=== PATIENT | male | born 1935 | race Caucasian/White ===

== ENCOUNTER 2017-06-14 08:00 | Day surgery (SDC) | payer MEDICARE ==
[2017-06-08 15:49] VITALS: BMI 25.4
[~2017-06-14 08:00] MED LIST: DEXAMETHASONE SOD PHOSPHATE 10 MG/ML 1 ML VIAL IV ONE; HYDROmorphone 1 MG/ML 1 ML SYRINGE IVP PRN; LACTATED RINGERS 1,000 ML IV SCH; LIDOCAINE 1% 20 ML VIAL (10MG/ML) FOR IV START INTRADERMA PRN; MIDAZOLAM 2 MG/2 ML VIAL IV PRN; MOXIFLOXACIN HCL 0.5% DROPS 3 ML BTL OP ONE; ONDANSETRON 4 MG/2 ML VIAL IVP ONE; SCOPOLAMINE 1.5MG/72HR PATCH TRANSDERM ONE; TETRACAINE 0.5% OPHTH (PF) DROPS 4 ML BTL OP ONE; TIMOLOL 0.5% OPHTH SOLN (PF) 0.2 ML DROPERETTE OP ONE
[2017-06-14] MEDS: PHENYLEPHRINE 2.5% OPHTH DRP 2ML OP NR ×3 (08:42→08:54)
[2017-06-14] MEDS: CYCLOPENTOLATE 1% OPHTH SOLN 2 ML BTL OP ONE ×3 (08:45→08:57)
[2017-06-14 08:59] VITALS: RESP 16; TEMP 97.6
[2017-06-14 09:19] LABS: INR 1.9 (<1.2); Prothrombin Time 18.3 sec (9.0-12.0)
[2017-06-14] MEDS ORDERED: EPINEPHrine (PF) 0.3 ML in BALANCED SALT IRRIG SOLN COMB2 500 ML IRRIGATION ONE (10:02)
[2017-06-14] MEDS ORDERED: BALANCED SALT IRRIG SOLN COMB2 15 ML IRRIG.SOLN INTRAOCULA ONE (10:05)
[2017-06-14] MEDS ORDERED: TIMOLOL 0.5% OPHTH SOLN (PF) 0.2 ML DROPERETTE RIGHT EYE ONE (10:05)
[2017-06-14] MEDS ORDERED: LIDOCAINE 1% (PF) 10MG/ML VIAL SQ ONE (10:07)
--- NOTE | 2017-06-14 10:21 | P.OP ---
Date of Procedure: 06/14/17 Preoperative Diagnosis: NS & CS & PSC Postoperative Diagnosis: same Procedure(s) Performed: PIOL, OD Implants: PCB00 20.00 Anesthesia: MAC Surgeon: Lino Vogel Estimated Blood Loss (ml): 0 Pathology: none sent Condition: stable Disposition: same day Indications for Procedure: blurry vision Operative Findings: no complications Description of Procedure:
[2017-06-14 10:39] VITALS: BP 119/72; PULSE 68
--- NOTE | 2017-06-15 11:05 | OP ---
DATE OF SURGERY: 06/14/2017 PROCEDURE: Phacoemulsification of cataract and intraocular lens implant of the right eye. PREOPERATIVE DIAGNOSIS: Nuclear sclerosis, cortical sclerosis, posterior subcapsular cataract. POSTOPERATIVE DIAGNOSIS: Nuclear sclerosis, cortical sclerosis, posterior subcapsular cataract. VISCOELASTIC: Amvisc. PHACOEMULSIFICATION TIME: 11.56 seconds at 8% power. IMPLANT: [id number] 20.0 diopters. NARRATIVE: After obtaining the appropriate consent, the patient was brought to the Operating Room where the patient was placed under cardiac monitoring and prepped and draped in the usual sterile manner. At the 11 oclock - for OD, 5 oclock - for OS position a 15 degree super sharp blade was used to create a paracentesis followed by instillation of 1% Xylocaine MPF 50:50 mix with BSS into the anterior chamber. This was followed by to stabilize the anterior chamber. At the 9 oclock - for OD, 3 oclock - for OS position a self- sealing corneal flap incision was created using 2.8 mm hair keratome. A cystatome was used to initiate a continuous tear capsulorrhexis which was completed with the Utrata forceps. A Binkhorst cannula was used to hydrodissect the lens nucleus followed by hydrodelineation. Phacoemulsification of the lens was performed utilizing phacochop in seconds at % power. The remaining cortical material was removed using the irrigation aspiration mode followed by additional 1% Xylocaine MPF into the anterior chamber followed by viscoelastic to stabilize the capsular bag. An posterior chamber lens was placed into the capsular bag without difficulty. The remaining viscoelastic material was removed from the anterior chamber with the irrigation/aspiration. Balanced salt solution was used to normalize the intraocular pressure. The incision was checked for watertight integrity. The patient then received two drops of 0.5% timolol followed by two drops Vigamox, was lightly patched and shielded in the usual manner. There were no complications from the procedure. The patient tolerated the procedure well and was returned to recovery in good condition. HEBERT
== END 2017-06-14 11:25 | disposition home or self-care (01) ==
LOC: OR 08:00
PROVIDERS: ATTEND Ophthalmology
DX: H25.11 Age-related nuclear cataract, right eye (principal); H25.011 Cortical age-related cataract, right eye; H25.041 Posterior subcapsular polar age-related cataract, right eye; H34.8322 Tributary (branch) retinal vein occlusion, left eye, stable; H52.4 Presbyopia; H52.223 Regular astigmatism, bilateral; H02.122 Mechanical ectropion of right lower eyelid; J43.9 Emphysema, unspecified; I51.9 Heart disease, unspecified; I48.91 Unspecified atrial fibrillation; J44.9 Chronic obstructive pulmonary disease, unspecified; Z86.73 Personal history of transient ischemic attack (TIA), and cerebral infarction without residual deficits; Z85.46 Personal history of malignant neoplasm of prostate; I25.2 Old myocardial infarction; Z79.899 Other long term (current) drug therapy; Z79.52 Long term (current) use of systemic steroids; Z79.51 Long term (current) use of inhaled steroids; Z79.82 Long term (current) use of aspirin; Z79.01 Long term (current) use of anticoagulants; Z88.1 Allergy status to other antibiotic agents; Z88.0 Allergy status to penicillin; Z88.2 Allergy status to sulfonamides; Z87.891 Personal history of nicotine dependence
CPT/HCPCS: 85610; 66984; C1780; J0171; J2001

== ENCOUNTER 2018-03-29 10:09 | Inpatient (IN) | payer MEDICARE ==
[2018-03-29] MEDS ORDERED: HEPARIN SODIUM,PORCINE 5,000 UNIT/ML 1 ML VIAL IV PRN (16:29)
[2018-03-29] MEDS ORDERED: HEPARIN SODIUM,PORCINE/D5W PMX 25,000 UNIT in DEXTROSE/WATER 1 500ML.BAG IV SCH (16:30)
[2018-03-29 17:27] LABS: Basophils % (A) 0 %; Eosinophils % (A) 0 %; HCT 38.8 % (39.0-53.0); Lymphocytes # (A) 0.4 k/uL (1.0-4.8); Lymphocytes % (A) 6 %; MCH 32.2 pg (25.0-35.0); MCHC 33.5 g/dL (31.0-37.0); Mean Platelet Volume 7.3; Monocytes # (A) 0.6 k/uL (0-1.0); Monocytes % (A) 8 %; Neutrophils # (A) 5.9 k/uL (1.3-7.7); Neutrophils % (A) 84 %; Platelet Count 181 k/uL (150-450); RBC 4.04 m/uL (4.30-5.90); RDW 13.2 % (11.5-15.5)
[2018-03-29 17:38] LABS: INR 1.4 (<1.2)
[2018-03-29 17:47] VITALS: RESP 18
[2018-03-29] MEDS ORDERED: ALPRAZolam 0.25 MG TAB PO PRN (17:51)
--- NOTE | 2018-03-29 20:22 | HP ---
HISTORY AND PHYSICAL Mr. Odell is an 82-year-old gentleman who initially presented to [facility] and was admitted on March 27 at that time with a chief complaint of chest pain. The patient was awoken by pain and it increased with any activity the morning of admission and he came to the emergency room. He was found initially to have a elevated troponin at 0.086. EKG showed atrial fibrillation and low voltage in the anterior leads but no definite acute ischemic changes. The patient remained fairly pain- free during his hospitalization. Initial catheterization was deferred because of elevated INR values. His Coumadin was held and plans for further catheterization; per patient request he was transferred here to [facility] so not only catheterization could be done, but if further intervention was needed, it could be done here in the cath facility. PREVIOUS MEDICAL HISTORY: 1. Coronary artery disease and previous myocardial infarction and a previous catheterization, but probably 10 years or more ago. 2. He also has had chronic atrial fibrillation. 3. Underlying history of COPD. 4. Previous remote CVA with good recovery. 5. Hyperlipidemia. 6. There is history of colonic polyp and removal many years ago. 7. The patient has a history of cancer of the prostate. 8. Dilated cardiomyopathy. 9. Osteoarthritis. ALLERGIES: 1. SULFA. 2. PENICILLIN. 3. VIBRAMYCIN. WITH SULFA AND PENICILLIN, HE HAS HAD HIVES IN THE PAST. REVIEW OF SYSTEMS: The patient has had chest pain, as mentioned above. No unusual fever or chills. No urinary or bowel symptomatology. No unusual leg edema or pain. PAST SURGICAL HISTORY: 1. Hemicolectomy for the right-sided tumor lesion many years ago without any evidence of spread or recurrence. 2. He has had previous prostate surgery. 3. He has also had carotid artery surgery. 4. Left hip replacement. 5. Right shoulder rotator cuff repair. 6. Right knee surgery in the past. SOCIAL HISTORY: Patient does not smoke. Very infrequent alcohol usage. He lives locally with his in the area. FAMILY MEDICAL HISTORY: Positive for coronary artery disease with his mother. Father and brother also had emphysema. PHYSICAL EXAMINATION: He is alert and oriented, in no distress. Head and neck exam was unremarkable. LUNGS: Clear to auscultation. HEART: Regular without murmurs. ABDOMEN: Nontender. Extremities revealed no edema. Neurologically, he is alert and oriented. Cranial nerves intact. No focal weakness noted. PRESENT LABORATORY VALUES: White count of 7, hemoglobin 13, and a platelet count of 181. His INR was 1.4. PTT is 27. His EKGs have revealed at [facility] atrial fibrillation with poor R- wave progression anteriorly. His rate is controlled. No definite ischemic changes were noted. The patient also had a chest x-ray at [facility] which did not show any focal consolidation, pleural effusion or pneumothorax. There was some consistency with COPD. OVERALL IMPRESSION: This is a gentleman with xlo-GQ-byfpfcj-elevated myocardial infarction/unstable angina with history of coronary artery disease and other comorbidities as stated above. PLANS: At this point he will continue off his Coumadin. Continue on heparin. His other maintenance medications, which include his Lipitor, will be continued. Metoprolol. He is to be n.p.o. in the morning. Plans are for cardiac catheterization apparently tomorrow by [facility], I believe Dr. Saucedo, as has been discussed with the patient at [facility]. MMODL / IJN: [id number] / HEBERT
[2018-03-29] MEDS: SYMBICORT 160-4.5 MCG INHALER INHALATION SCH (21:51)
[2018-03-29] MEDS: TEMAZEPAM 7.5 MG CAP PO PRN (22:56)
[2018-03-29] MEDS: METOPROLOL TARTRATE 25 MG TAB PO SCH (22:57)
[2018-03-29] MEDS: FAMOTIDINE 20 MG TAB PO SCH (22:57)
[2018-03-29] MEDS: AMITRIPTYLINE HCL 10 MG TAB PO SCH (22:57)
[2018-03-30] MEDS: ASPIRIN 81 MG PO SCH (05:55)
[2018-03-30] MEDS: FERROUS SULFATE 325 MG TAB PO SCH (05:56)
[2018-03-30] MEDS: FUROSEMIDE 20 MG TAB PO SCH (05:56)
[2018-03-30] MEDS: CALCIUM CARBONATE 500 MG CHEWABLE PO SCH (05:56)
[2018-03-30] MEDS: CHOLECALCIFEROL 1,000 UNIT TAB PO SCH (05:56)
[2018-03-30] MEDS: ATORVASTATIN 10 MG TAB PO SCH (05:56)
[2018-03-30] MEDS: predniSONE 5 MG TAB PO SCH (05:57)
[2018-03-30] MEDS: MONTELUKAST 10 MG TAB PO SCH (05:57)
[2018-03-30 06:46] LABS: Basophils % (A) 0 %; Eosinophils # (A) 0.1 k/uL (0-0.7); Eosinophils % (A) 1 %; HCT 40.5 % (39.0-53.0); HGB 13.6 gm/dL (13.0-17.5); Lymphocytes # (A) 0.8 k/uL (1.0-4.8); Lymphocytes % (A) 9 %; MCH 32.2 pg (25.0-35.0); MCHC 33.6 g/dL (31.0-37.0); MCV 95.8 fL (80.0-100.0); Mean Platelet Volume 7.4; Monocytes # (A) 1.1 k/uL (0-1.0); Monocytes % (A) 13 %; Neutrophils # (A) 5.9 k/uL (1.3-7.7); Neutrophils % (A) 73 %; Platelet Count 202 k/uL (150-450); RBC 4.23 m/uL (4.30-5.90); WBC 8.2 k/uL (3.8-10.6)
[2018-03-30 06:51] LABS: INR 1.2 (<1.2); Prothrombin Time 11.7 sec (9.0-12.0)
[2018-03-30 06:58] LABS: Anion Gap 10 mmol/L; Blood Urea Nitrogen 18 mg/dL (9-20); Calcium 9.3 mg/dL (8.4-10.2); Carbon Dioxide 29 mmol/L (22-30); Chloride 102 mmol/L (98-107); Glucose 97 mg/dL (74-99); Potassium 4.1 mmol/L (3.5-5.1); Sodium 141 mmol/L (137-145)
[2018-03-30] MEDS: FAMOTIDINE 20 MG TAB PO SCH ×2 (07:49→20:35)
--- NOTE | 2018-03-30 08:00 | P.PN ---
Progress Note - Text The patient is a 82-year-old gentleman who initially presented earlier this week to [facility]. There patient presented with chest pain and an elevated troponin value. Patient has history of coronary artery disease. Atrial fibrillation. His pain increases with activity. The patient has been transferred here and plans are for heart catheterization this morning. Reasons for the testing and possible further intervention has been discussed with patient and who is present at bedside this morning. The patient states he had some mild pain during the night. Presently is pain-free. Vital signs reveal temperature 96.7 with a pulse of 87 respirations 18. Blood pressure 135/87 and he is 95% saturated on room air. Lung and heart examination is clear. Abdomen is nontender. No unusual edema. No focal neurological changes. He is alert and oriented. Laboratory White count 8.2 with a hemoglobin 13.6 and a platelet count of 202. Electrolytes are normal with a potassium 4.1. BUN is 18 with creatinine 0.9 to him a GFR of 80. INR is 1.2. Impressions and plans The plans are for heart catheterization this morning to delineate the coronary artery anatomy and further recommendations pending those results. Once again discussed with patient and present at bedside.
[2018-03-30] MEDS ORDERED: IV FLUID CONTINUATION 1,000 ML IV ONE (08:30)
[2018-03-30] MEDS ORDERED: MIDAZOLAM 2 MG/2 ML VIAL IV ONE (08:30)
[2018-03-30] MEDS ORDERED: LIDOCAINE 2% INJ 20 MG/ML SQ ONE (08:31)
[2018-03-30] MEDS ORDERED: IOPAMIDOL-370 125ML BTL INJ ONE (08:45)
[2018-03-30] MEDS ORDERED: RX INFO: IV CONTRAST WAS GIVEN 1 EACH MISC MISCELLANE PRN (08:57)
[2018-03-30] MEDS ORDERED: NON-FORMULARY DRUG (Glucosam/Chon-Msm1/C/Mang/Bosw [Glucosamine-Chondroitin Tablet] 1 TAB) PO SCH (09:00)
[2018-03-30] MEDS ORDERED: ENALAPRILAT 1.25 MG/ML 1 ML VIAL IVP ONE (09:09)
[2018-03-30] MEDS: SYMBICORT 160-4.5 MCG INHALER INHALATION SCH ×2 (09:11→19:53)
--- NOTE | 2018-03-30 09:33 | CC ---
CARDIAC CATHETERIZATION REPORT INDICATION: Unstable angina. PROCEDURE NOTE: After obtaining informed consent, left heart catheterization and coronary angiogram are performed via the right femoral artery using standard Ankita catheters. The patient has a very tortuous aorta. I used a longer pigtail catheter to get into the LV and a long exchange length wire was used to exchange the catheters in the ascending aorta. A femoral angiogram was done and decision was made for manual hemostasis as patient has a heavily calcified common femoral artery. Patient received moderate conscious sedation. Total sedation time was 20 minutes. FINDINGS: 1. HEMODYNAMICS: Left ventricular end-diastolic pressure is 18 mm. There is no significant gradient across aortic valve. 2. Left ventriculogram: Left ventriculogram is not performed. 3. ANGIOGRAPHIC DATA: 4. Left main coronary artery: Left main coronary artery appears calcified but is free of stenosis. Divides into left anterior descending coronary artery and circumflex coronary artery. Circumflex coronary artery and its branches are free of significant stenosis. LAD shows mild atherosclerotic plaque in its proximal and mid portions. Right coronary artery is a large dominant vessel and is free of significant disease. CONCLUSIONS: Mild nonobstructive coronary artery disease involving the left anterior descending artery and circumflex coronary artery. PLAN: I reviewed angiographic data with the patient and told him that his chest discomfort is noncardiac in origin and will continue with medical therapy at this time. MMODL / IJN: [id number] /
[2018-03-30] MEDS: APIXABAN 2.5 MG TABLET PO SCH ×2 (11:04→20:35)
[2018-03-30] MEDS: SODIUM CHLORIDE 0.9% 1,000 ML IV SCH ×2 (15:50→20:36)
[2018-03-30] MEDS: METOPROLOL TARTRATE 25 MG TAB PO SCH (20:35)
[2018-03-30] MEDS: AMITRIPTYLINE HCL 10 MG TAB PO SCH (20:35)
[2018-03-30] MEDS: TEMAZEPAM 7.5 MG CAP PO PRN (21:26)
[2018-03-31] MEDS: ASPIRIN 81 MG PO SCH (06:24)
[2018-03-31] MEDS: FAMOTIDINE 20 MG TAB PO SCH (06:30)
[2018-03-31 06:32] LABS: INR 1.2 (<1.2); Prothrombin Time 11.6 sec (9.0-12.0)
[2018-03-31 06:38] LABS: Basophils % (A) 0 %; Eosinophils # (A) 0.1 k/uL (0-0.7); Eosinophils % (A) 1 %; HCT 36.6 % (39.0-53.0); HGB 12.5 gm/dL (13.0-17.5); Lymphocytes # (A) 0.7 k/uL (1.0-4.8); Lymphocytes % (A) 9 %; MCV 94.1 fL (80.0-100.0); Mean Platelet Volume 7.7; Monocytes # (A) 1.3 k/uL (0-1.0); Monocytes % (A) 16 %; Neutrophils # (A) 5.7 k/uL (1.3-7.7); Neutrophils % (A) 70 %; Platelet Count 182 k/uL (150-450); RBC 3.89 m/uL (4.30-5.90); RDW 13.3 % (11.5-15.5); WBC 8.1 k/uL (3.8-10.6)
[2018-03-31] MEDS: SYMBICORT 160-4.5 MCG INHALER INHALATION SCH (07:39)
[2018-03-31 08:06] LABS: Poikilocytosis (M) Present
[2018-03-31] MEDS: FERROUS SULFATE 325 MG TAB PO SCH (08:10)
[2018-03-31] MEDS: CHOLECALCIFEROL 1,000 UNIT TAB PO SCH (08:10)
[2018-03-31] MEDS: APIXABAN 2.5 MG TABLET PO SCH (08:10)
[2018-03-31] MEDS: ATORVASTATIN 10 MG TAB PO SCH (08:10)
[2018-03-31] MEDS: CALCIUM CARBONATE 500 MG CHEWABLE PO SCH (08:10)
[2018-03-31] MEDS: FUROSEMIDE 20 MG TAB PO SCH (08:11)
[2018-03-31] MEDS: SODIUM CHLORIDE 0.9% 1,000 ML IV SCH (08:11)
[2018-03-31] MEDS: predniSONE 5 MG TAB PO SCH (08:11)
[2018-03-31] MEDS: MONTELUKAST 10 MG TAB PO SCH (08:11)
[2018-03-31 10:09] VITALS: PULSE 105
[2018-03-31 12:06] VITALS: BP 128/84; TEMP 97.8
--- NOTE | 2018-03-31 12:38 | P.PN ---
Progress Note - Text The patient is a 82-year-old gentleman who underwent heart catheterization yesterday for recurrent chest pain after initially presenting the [facility]. He did have one elevated troponin and the pain was consistent with an unstable angina-type picture. Patient did have history of coronary artery disease. Also chronic atrial fibrillation. Catheterization performed yesterday by cardiology, Dr. Enzo Saucedo though showed only mild nonobstructive coronary disease involving the left anterior descending and circumflex. Vital signs this morning show a temperature 97.8 a pulse of 105 and respirations 18. Blood pressure 128/84 and is 97% saturated. Lung and heart examination is clear. Heart rate is irregular. No unusual edema. No neurological changes. Impressions and plans Discussed with patient and family at bedside. Discuss pros versus cons of Eloquis versus Coumadin. Discussed with nursing staff and cardiology nurse this morning. Patient apparently has a $40 co-pay for Eloquis but will continue on Eloquis and hold Coumadin at this time. Patient to resume his previous home medications with any changes per cardiology. Follow-up in the office next week. Also follow-up with Dr. Saucedo over the next couple weeks. Call if any questions concerns or problems.
--- NOTE | 2018-03-31 12:54 | P.PN ---
Subjective Progress Note Date: 03/31/18 This is an 82-year-old gentleman who presented to [facility] and was admitted there with symptoms of chest discomfort. He was noted to have a mild elevation in his troponin and for this reason was transferred here to undergo a cardiac catheterization. His EKG also showed atrial fibrillation, for which the patient had been on Coumadin in the past. Patient also has history of remote CVA, hyperlipidemia, dilated cardiomyopathy, and COPD. Cardiac catheterization was performed here by Dr. Saucedo and revealed mild nonobstructive coronary artery disease involving the LAD and circumflex, medical therapy was advised. Patient was seen and examined this morning, denies any chest pain or difficulty in breathing. The patient has now been initiated on Eliquis, we will check to make sure that the patient has coverage for this. He should be able to be discharged home today from our perspective to follow-up with Dr. Puente in the office post discharge. Objective - Vital Signs Vital signs: Vital Signs Temp 97.8 F 03/31/18 12:00 Pulse 105 H 03/31/18 12:00 Resp 18 03/31/18 12:00 BP 128/84 03/31/18 12:00 Pulse Ox 97 03/31/18 12:00 Intake & Output 03/30/18 03/31/18 03/31/18 18:59 06:59 18:59 Intake Total 290 10 360 Output Total 600 Balance 290 -590 360 Weight 66.4 kg Intake: IV 50 Intake, IV Titration 10 Amount Sodium Chloride 0.9% 1, 10 000 ml @ 75 mls/hr IV . [id number] [facility] Rx#:[id number] Oral 240 360 Output: Urine 600 Other: Voiding Method Toilet Toilet # Voids 2 1 - Exam PHYSICAL EXAMINATION: HEENT: Head is atraumatic, normocephalic. Pupils equal, round. Neck is supple. There is no elevated jugular venous pressure. HEART EXAMINATION: Heart S1 and S2 irregularly irregular CHEST EXAMINATION: Lungs are clear to auscultation and precussion. No chest wall tenderness is noted on palpation or with deep breathing. ABDOMEN: Soft, nontender. Bowel sounds are heard. No organomegaly noted. Right groin is soft, there is no evidence of any hematoma. EXTREMITIES: 2+ peripheral pulses with no evidence of peripheral edema and no calf tenderness noted. NEUROLOGIC patient is awake, alert and oriented -3. . - Labs CBC & Chem 7: 03/31/18 05:21 0518 06:15 Labs: Abnormal Lab Results - Last 24 Hours (Table) 03/31/18 03/31/18 Range/Units 05:21 05:21 RBC 3.89 L (4.30-5.90) m/uL Hgb 12.5 L (13.0-17.5) gm/dL Hct 36.6 L (39.0-53.0) % Lymphocytes # 0.7 L (1.0-4.8) k/uL Monocytes # 1.3 H (0-1.0) k/uL INR 1.2 H (<1.2) Assessment and Plan Plan: Assessment and plan #1 chest pain with mild abnormality in troponin, status post cardiac catheterization which revealed mild nonobstructive coronary artery disease. Medical therapy advised. #2 chronic persistent atrial fibrillation, on Eliquis now for anticoagulation #3 hypertension #4 hyperlipidemia #5 prior CVA Plan Patient may be discharged home today from cardiology's perspective, we will check to make sure the patient has coverage for his Eliquis, he will go home on Eliquis 2-1/2 mg one tablet by mouth twice a day. A follow-up appointment will be made with Dr. Saucedo in the office post discharge. DNP note has been reviewed, I agree with a documented findings and plan of care. Patient was seen and examined.
--- NOTE | 2018-04-02 06:27 | DS ---
DISCHARGE SUMMARY Mr. Odell is an 82-year-old gentleman that was initially transferred from [facility] where he presented with chest pain. The patient had pain and elevated troponin. Symptoms were consistent with an unstable angina picture in a history of a gentleman with previous cardiac problems consistent with atherosclerotic heart disease and previously diagnosed chronic atrial fibrillation. The patient wanted his heart catheterization performed at [facility] due to the fact that if further intervention was needed it could be done at the same time and he would not have to be transferred again. The patient was admitted. Consultation with cardiology, Dr. Saucedo and cardiac catheterization revealed the left main coronary artery disease to be calcified but free of stenosis. The LAD had some mild atherosclerotic plaque in the proximal and midportion. Right coronary was free of disease. It was felt that the patient would continue on medical management and not be subjected to stenting or surgery at this time. The patient was started on Eliquis. Subsequently, he was ambulated and remained pain free and at this time plans are to discharge to home with home medications to continue with his Eliquis 2.5 twice a day, and the importance of anticoagulation was discussed with him. He is to stop his Coumadin at this time. Amitriptyline 10 mg at bedtime. Aspirin 81 mg daily. Symbicort 160-4.5 two puffs twice a day. He is on calcium carbonate 600 mg daily. Vitamin D3 2000 units daily. Multaq. The patient was on a half of a 400 mg tablet prior to admission for his atrial fibrillation. Ferrous sulfate 325 daily. Lasix 20 mg daily. Glucosamine daily. Metoprolol 25 mg at bedtime. Singular 10 mg daily. Ranitidine 150 mg twice a day. Simvastatin 20 mg daily. Prednisone 5 mg daily and once again he was told to stop his Coumadin while he is on Eliquis. Follow up with myself and Dr. Saucedo over the next 7-10 days. FINAL DISCHARGE DIAGNOSES: 1. Unstable angina with chest pain, now post catheterization as described above. 2. History of previous myocardial infarction. 3. Chronic atrial fibrillation. 4. Chronic obstructive pulmonary disease. 5. Cerebrovascular accident with good previous recovery. 6. Hyperlipidemia. 7. History of previous colonic polyp that was removed by way of open surgery in the past without any evidence of metastatic disease or recurrence. 8. History of prostate cancer. 9. History of osteoarthritis. PREVIOUS SURGERIES: Include the right hemicolectomy, prostate surgery, previous carotid surgery, left hip replacement, right knee and right shoulder rotator cuff repair in the past. DIET: Will low-cholesterol as tolerated. ACTIVITY: As tolerated. MMODL / IJN: [id number] / MTDD
== END 2018-03-31 14:13 | disposition home or self-care (01) | DRG 287 ==
LOC: 6SEL 15:12
PROVIDERS: ADMIT Internal Medicine; ATTEND Internal Medicine
PROC: B211YZZ Fluoroscopy of Multiple Coronary Arteries using Other Contrast (ICD-10-PCS; 2018-03-30)
PROC: 4A023N7 Measurement of Cardiac Sampling and Pressure, Left Heart, Percutaneous Approach (ICD-10-PCS; principal; 2018-03-30 08:30)
DX: I25.110 Atherosclerotic heart disease of native coronary artery with unstable angina pectoris (principal); I42.0 Dilated cardiomyopathy; I48.2 Chronic atrial fibrillation; J44.9 Chronic obstructive pulmonary disease, unspecified; I25.84 Coronary atherosclerosis due to calcified coronary lesion; I10 Essential (primary) hypertension; E78.5 Hyperlipidemia, unspecified; R79.1 Abnormal coagulation profile; I25.2 Old myocardial infarction; M19.91 Primary osteoarthritis, unspecified site; Z86.010 Personal history of colon polyps; Z85.46 Personal history of malignant neoplasm of prostate; Z86.73 Personal history of transient ischemic attack (TIA), and cerebral infarction without residual deficits; Z79.01 Long term (current) use of anticoagulants; Z79.82 Long term (current) use of aspirin; Z79.51 Long term (current) use of inhaled steroids; Z79.899 Other long term (current) drug therapy; Z88.1 Allergy status to other antibiotic agents; Z88.0 Allergy status to penicillin; Z88.2 Allergy status to sulfonamides; Z96.642 Presence of left artificial hip joint; Z90.49 Acquired absence of other specified parts of digestive tract; Z82.49 Family history of ischemic heart disease and other diseases of the circulatory system; Z82.5 Family history of asthma and other chronic lower respiratory diseases
CPT/HCPCS: 80048; 85025; 85610; 85730; 93458; 94640

== ENCOUNTER → 2019-11-08 | Outpatient (CLI) | payer MEDICARE ==
--- NOTE | 2019-11-08 13:57 | US ---
EXAMINATION TYPE: US abdomen limited DATE OF EXAM: 11/08/2019 COMPARISON: NONE CLINICAL HISTORY: R10.31 RLQ Abd pain. Pt states RLQ pain that radiates to right groin RLQ and right groin scanned in area of pt's pain, normal appearing lymph node visualized= 0.4 cm, p rominent right iliac artery also visualized, no evidence of hernia on valsalva maneuver IMPRESSION: 1. There is a circumscribed area within the right inguinal region suspicious for a node.
== END ==
LOC: RADUSWWP 10:35
PROVIDERS: ATTEND Family Medicine
DX: R10.31 Right lower quadrant pain (principal)
CPT/HCPCS: 76705

== ENCOUNTER → 2019-12-19 | Outpatient (CLI) | payer MEDICARE ==
--- NOTE | 2019-12-19 20:14 | CT ---
EXAMINATION TYPE: CT abdomen pelvis wo con DATE OF EXAM: 12/19/2019 COMPARISON: None HISTORY: LLQ pain CT DLP: 224 mGycm Examination of the solid and hollow viscera is limited given the lack of contrast. FINDINGS: LUNG BASES: No evidence for nodule. No evidence for infiltrate. LIVER/GB: The gallbladder is unremarkable. No space-occupying hepatic lesion. PANCREAS: No pancreatic mass identified. No inflammatory process seen. SPLEEN: No evidence for splenomegaly. No intrasplenic lesions seen. Splenic granuloma. ADRENALS: No adrenal nodules identified. No evidence for thickening. KIDNEYS: 4 cm simple cyst upper pole right kidney. No solid renal lesions identified. No nephrolithia sis. No hydronephrosis. BOWEL: Appendix has a normal appearance. No evidence of bowel obstruction. No inflammatory process. Lymph nodes: No evidence for adenopathy greater than 1 cm. Abdominal aorta: Atheromatous changes seen. No evidence for abdominal aortic aneurysm. Aneurysmal dil atation right common iliac measuring 2 cm with ectasia of the left common iliac artery. 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 Genital organs: Prostatectomy changes. Other: Severe degenerative changes lumbar spine. Compression fracture of uncertain age and/or etiolog y superior endplate of L2 with loss of height of approximately 50%. Minimal retropulsion is noted at 2 mm. [id number] central stenosis noted at this level. IMPRESSION: 1.Compression fracture of uncertain age and/or etiology superior endplate of L2 with loss of height o f approximately 50%. Minimal retropulsion is noted at 2 mm. [id number] central stenosis noted a t this level. 2. Iliac aneurysmal change as noted.
== END | disposition home or self-care (01) ==
LOC: RADCTMAIN 17:15
PROVIDERS: ATTEND Orthopaedic Surgery Orthopaedic Surgery of the Spine
DX: S32.028A Other fracture of second lumbar vertebra, initial encounter for closed fracture (principal); I72.3 Aneurysm of iliac artery; J43.9 Emphysema, unspecified; I51.9 Heart disease, unspecified; F17.200 Nicotine dependence, unspecified, uncomplicated; Z85.46 Personal history of malignant neoplasm of prostate; Z85.038 Personal history of other malignant neoplasm of large intestine
CPT/HCPCS: 74176

== ENCOUNTER → 2020-07-23 | Outpatient (CLI) | payer MEDICARE ==
--- NOTE | 2020-07-23 16:16 | US ---
EXAMINATION TYPE: US venous doppler duplex LE DATE OF EXAM: 07/23/2020 2:58 PM COMPARISON: None CLINICAL HISTORY: 84-year-old male R22.42 Left leg swelling, R22.41 Right leg swelling. On blood thin ners. Patient states bumping leg. Palpable lump on right medial mid calf. SIDE PERFORMED: Bilateral TECHNIQUE: The lower extremity deep venous system is examined utilizing real time linear array sonog liliya with graded compression, doppler sonography and color-flow sonography. FINDINGS: VESSELS IMAGED: External Iliac Vein (EIV) Common Femoral Vein Deep Femoral Vein Greater Saphenous Vein * Femoral Vein Popliteal Vein Small Saphenous Vein * Proximal Calf Veins (* superficial vessels) Right Leg: Negative for DVT. Workers Compensation Examiner notes: Area of lump scanned, anteromedial mid calf - super ficial complex collection- 4.2 x 2.7 x 1.6 cm Left Leg: Negative for DVT IMPRESSION: 1. No evidence for DVT within the bilateral lower extremities imaged from the groin to the upper calv es. 2. Targeted scanning along the anteromedial right mid leg shows a 4.2 cm complex collection; hematoma , seroma, abscess are some differential considerations. Mass considered unlikely. Follow-up clinicall y to ensure gradual involution. If persistence or growth, the area can be rescanned.
== END | disposition home or self-care (01) ==
LOC: RADUSWWP 14:32
PROVIDERS: ATTEND Nurse Practitioner Family
DX: I87.2 Venous insufficiency (chronic) (peripheral) (principal)
CPT/HCPCS: 93970

== ENCOUNTER → 2020-08-18 | Outpatient (CLI) | payer MEDICARE | END | disposition home or self-care (01) | LOC: CPPFTMAIN 09:03 | PROVIDERS: ATTEND Internal Medicine Critical Care Medicine | DX: J44.9 Chronic obstructive pulmonary disease, unspecified (principal); R94.2 Abnormal results of pulmonary function studies | CPT/HCPCS: 94060; 94726; 94729 ==

== ENCOUNTER → 2020-12-04 | Outpatient (CLI) | payer MEDICARE ==
--- NOTE | 2020-12-04 12:04 | US ---
EXAMINATION TYPE: US venous doppler duplex LE LT DATE OF EXAM: 12/04/2020 11:57 AM COMPARISON: US bilateral 07/23/2020 CLINICAL HISTORY: R22.42 swelling, M79.662 pain in limb. Bumped leg, developed palpable lump. Patient is currently taking blood thinners SIDE PERFORMED: Left TECHNIQUE: The lower extremity deep venous system is examined utilizing real time linear array sonog liliya with graded compression, doppler sonography and color-flow sonography. VESSELS IMAGED: Common Femoral Vein Deep Femoral Vein Greater Saphenous Vein * Femoral Vein Popliteal Vein Small Saphenous Vein * Proximal Calf Veins (* superficial vessels) Left Leg: Negative for DVT At the patient's palpable lump, left calf, there is a complex fluid collection measuring 3.6 x 0.9 x 2.8 cm Grayscale, color doppler, spectral doppler imaging performed of the deep veins of the left lower extr emity. There is normal flow, compressibility, vascular waveforms. IMPRESSION: No ultrasound evidence for acute DVT in the left lower extremity. Towards the end of cassie dy there is a small to moderate-sized subcutaneous complex fluid collection likely reflecting hematom a given patient's history in the left calf region.
== END | disposition home or self-care (01) ==
LOC: RADUSWWP 11:35
PROVIDERS: ATTEND Nurse Practitioner Family
DX: R93.6 Abnormal findings on diagnostic imaging of limbs (principal); R22.42 Localized swelling, mass and lump, left lower limb

== ENCOUNTER → 2021-09-24 | Outpatient (CLI) | payer MEDICARE ==
--- NOTE | 2021-09-27 06:31 | PE ---
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 TECHNIQUE: Following the intravenous administration of 8.95 mCi of F-18 FDG, whole body images are p erformed from the skull base to the midthigh. Images are reviewed on the computer in the coronal, ax ial, and sagittal planes. Reconstructed rotating images are created on independent workstation and r eviewed on the computer. A localization and attenuation correction CT is performed in conjunction w ith the PET scan. Blood glucose level equaled 111. SCAN: Initial Scan FINDINGS: SKULL BASE AND NECK: Symmetric uptake at level of vocal cords presumed physiologic. No suspicious ab normal hypermetabolic uptake. CHEST, MEDIASTINUM, AND HILAR REGION: No suspicious hypermetabolic uptake. ABDOMEN AND PELVIS: Streak artifact from extensive left hip surgery limits evaluation of the pelvis. Stable somewhat high positioned pelvic prosthesis. No abnormal hypermetabolic uptake. OSSEOUS STRUCTURES: No abnormal hypermetabolic uptake. OTHER CT: Background diffuse cerebral atrophy and chronic small vessel ischemic changes with old fron boo temporal infarct in the MCA distribution. Guux-oc-pbaymatj calcified plaque bilateral carotid bulb level. Mild underlying emphysematous change. There is cardiomegaly with moderate to severe biatrial dilatation. There is moderate coronary artery calcification. Ascending aortic aneurysm up to 4.4 cm axial image 120. Moderate to severe calcified plaque of the aorta extends into branch vessels. Prostate is surgically absent. Osseous structures are demineralized. There is moderate compression type fracture at L2 level redemon strated. Underlying scoliosis. IMPRESSION: No suspicious hypermetabolic uptake to suggest metastatic malignancy.
== END | disposition home or self-care (01) ==
LOC: RADPETMAIN 17:19
PROVIDERS: ATTEND Otolaryngology
DX: C43.22 Malignant melanoma of left ear and external auricular canal (principal)
CPT/HCPCS: 78815; A9552

== ENCOUNTER 2022-01-26 16:33 | Observation (INO) | payer MEDICARE ==
[2022-01-26] MEDS ORDERED: ONDANSETRON 4 MG/2 ML VIAL IVP STA (17:24)
[2022-01-26] MEDS ORDERED: MORPHINE SULFATE 2 MG/ML SYRINGE IVP STA (17:26)
[2022-01-26 18:01] LABS: Basophils # (A) 0.1 k/uL (0-0.2); Basophils % (A) 1 %; Eosinophils % (A) 1 %; HCT 37.4 % (39.0-53.0); HGB 12.6 gm/dL (13.0-17.5); Lymphocytes # (A) 0.4 k/uL (1.0-4.8); Lymphocytes % (A) 7 %; MCH 33.6 pg (25.0-35.0); MCHC 33.7 g/dL (31.0-37.0); MCV 99.8 fL (80.0-100.0); Mean Platelet Volume 7.2; Monocytes # (A) 0.8 k/uL (0-1.0); Monocytes % (A) 13 %; Neutrophils # (A) 4.6 k/uL (1.3-7.7); Neutrophils % (A) 76 %; Platelet Count 332 k/uL (150-450); RBC 3.75 m/uL (4.30-5.90); RDW 12.2 % (11.5-15.5)
[2022-01-26 18:12] LABS: Appearance,Urine Clear (Clear); Bilirubin,Urine Negative (Negative); Blood,Urine Negative (Negative); Color,Urine Yellow; Glucose,Urine (UA) Negative (Negative); Ketones,Urine Negative (Negative); Leukocyte Esterase,Urine Negative (Negative); Nitrite,Urine Negative (Negative); Protein,Urine Negative (Negative); Specific Gravity,Urine 1.009 (1.001-1.035); Urobilinogen,Urine <2.0 mg/dL (<2.0)
[2022-01-26 18:16] LABS: INR 1.1 (<1.2); Partial Thromboplastin Time 26.3 sec (22.0-30.0); Prothrombin Time 11.5 sec (9.0-12.0)
[2022-01-26 18:19] LABS: ALT 15 U/L (4-49); AST 22 U/L (17-59); African American GFR (CKD) >90 (>60 ml/min/1.73 sqM); Albumin 3.2 g/dL (3.5-5.0); Alkaline Phosphatase 84 U/L (38-126); Anion Gap 7 mmol/L; Blood Urea Nitrogen 14 mg/dL (9-20); Calcium 8.6 mg/dL (8.4-10.2); Carbon Dioxide 27 mmol/L (22-30); Chloride 96 mmol/L (98-107); Glucose 96 mg/dL (74-99); Lipase 87 U/L (23-300); Non-African American GFR(CKD) 80 (>60 ml/min/1.73 sqM); Potassium 4.2 mmol/L (3.5-5.1); Sodium 130 mmol/L (137-145); Total Bilirubin 0.6 mg/dL (0.2-1.3); Total Protein 6.2 g/dL (6.3-8.2)
--- NOTE | 2022-01-26 19:24 | ED ---
General Adult HPI - General Chief complaint: Back Pain/Injury Stated complaint: Back Pain Time Seen by Provider: 01/26/22 17:06 Source: patient Mode of arrival: wheelchair Limitations: no limitations - History of Present Illness Initial comments: This 86-year-old male with a past medical history of colon and prostate cancer, CVA, CAD and A. fib presents emergency department with abdominal pain that began a month ago, worsening over the last couple of days. Patient states he is also experiencing lower back pain, however he has had this same lower back pain 2 months after getting 2 lumbar compression fractures while twisting putting his seatbelt on. Patient states over the last couple days has been noticing increasing bilateral lower quadrant abdominal discomfort and pain R>L. Patient states he is seen by orthopedic associates for 2 lumbar compression fractures that happened 2-3 months ago. Patient states his pain is worse in his right lower quadrant and states is starting to move to his left lower quadrant. Patient denies any fevers, constipation/diarrhea or urinary changes. Patient denies any chest pain, shortness of breath, nausea, vomiting, hemoptysis, hematochezia, weakness, saddle anesthesia, bowel or bladder incontinence/rete ntion or cauda equina symptoms. She states his pain does seem a little bit worse at nighttime in 1 his right lower quadrant is + Patient states his bowel movements have been a little bit thinner than usual and states his last colonoscopy was about 6 years ago. Patient states he is on [place] along with Tylenol 3 for his back pain and compression fractures. Patient states Dr. Cook did complete his aortic iliac stent procedure. - Related Data Home Medications Medication Instructions Recorded Confirmed Calcium Carbonate [Calcium] 600 mg PO DAILY 06/08/17 01/26/22 Dronedarone [Multaq] 1,200 mg PO DAILY 06/08/17 01/26/22 Ferrous Sulfate [Iron (65 MG 325 mg PO DAILY 06/08/17 01/26/22 Elemental)] Glucosam/Edvin-Msm1/C/Lux/Bosw 1 tab PO DAILY 06/08/17 01/26/22 [Glucosamine-Chondroitin Tablet] Metoprolol Tartrate [Lopressor] 25 mg PO DAILY 06/08/17 01/26/22 Montelukast Sodium [Singulair] 10 mg PO DAILY 06/08/17 01/26/22 Simvastatin [Zocor] 20 mg PO DAILY 06/08/17 01/26/22 predniSONE 5 mg PO DAILY 06/08/17 01/26/22 Budesonide/Formoterol Fumarate 2 puff INHALATION RT-BID 03/29/18 01/26/22 [Symbicort 160-4.5 Mcg Inhaler] Acetaminophen-Codeine 300-30mg 1 tab PO DAILY PRN 01/26/22 01/26/22 [Tylenol w/codeine #3] Baclofen [Lioresal] 10 mg PO TID PRN 01/26/22 01/26/22 Cholecalciferol [Vitamin D3 (125 125 mcg PO DAILY 01/26/22 01/26/22 Mcg = 5000 Iu)] Diclofenac Sodium Gel [Voltaren 2 gm TOPICAL TID PRN 01/26/22 01/26/22 Gel] Famotidine 20 mg PO BID 01/26/22 01/26/22 HYDROcodone/APAP 5-325MG [[place] 1 tab PO BID PRN 01/26/22 01/26/22 5-325] Ipratropium/Albuterol Sulfate 1 puff INHALATION RT-QID 01/26/22 01/26/22 [Combivent Respimat Inhaler] Multivitamins, Thera [Multivitamin 1 tab PO DAILY 01/26/22 01/26/22 (formulary)] Previous Rx's Medication Instructions Recorded Apixaban [Eliquis] 2.5 mg PO BID #60 tablet 03/31/18 Allergies Allergy/AdvReac Type Severity Reaction Status Date / Time azithromycin Allergy tissue Verified 01/26/22 16:41 sloughing doxycycline [From Vibramycin] Allergy Tissue Verified 01/26/22 18:35 Sloughing in mouth moxifloxacin [From Avelox] Allergy red skin Verified 01/26/22 18:35 Penicillins Allergy Rash/Hives Verified 01/26/22 18:35 & Swelling lips Sulfa (Sulfonamide Allergy Rash/Hives Verified 01/26/22 16:41 Antibiotics) Review of Systems ROS Statement: Those systems with pertinent positive or pertinent negative responses have been documented in the HPI. ROS Other: All systems not noted in ROS Statement are negative. Past Medical History Past Medical History: Atrial Fibrillation, Coronary Artery Disease (CAD), Canc er, COPD, CVA/TIA, Prostate Disorder Additional Past Medical History / Comment(s): CVA-no residual,ventricular PVCs,hiatal hernia,bowel irregularity,prostate CA,colon CA-Chemo 1996,bilcataract History of Any Multi-Drug Resistant Organisms: MRSA Date of last positivie culture/infection: 06/22/17 MDRO Source:: Right Eye Past Surgical History: Bowel Resection, Heart Catheterization, Joint Replacement, Prostate Surgery Additional Past Surgical History / Comment(s): prostatectomy,left hip replaced x6,vanita cataracts, pre cancerous skin lesions removed, rt knee menisus sx,' "mass removed from rt carotid artery-benign" Past Anesthesia/Blood Transfusion Reactions: No Reported Reaction Past Psychological History: No Psychological Hx Reported Smoking Status: Never smoker Past Alcohol Use History: None Reported Past Drug Use History: None Reported - Past Family History Mother Family Medical History: Congestive Heart Failure (CHF) Additional Family Medical History / Comment(s): age 76 Father Family Medical History: COPD Additional Family Medical History / Comment(s): at age 65- General Exam Limitations: no limitations General appearance: alert, in no apparent distress Head exam: Present: atraumatic, normocephalic, normal inspection Eye exam: Present: normal appearance, PERRL, EOMI. Absent: scleral icterus, conjunctival injection, periorbital swelling ENT exam: Present: normal exam, mucous membranes moist Neck exam: Present: normal inspection, full ROM. Absent: tenderness, meningismus, lymphadenopathy Respiratory exam: Present: normal lung sounds bilaterally. Absent: respiratory distress, wheezes, rales, rhonchi, stridor Cardiovascular Exam: Present: regular rate, normal rhythm, normal heart sounds. Absent: systolic murmur, diastolic murmur, rubs, gallop, clicks GI/Abdominal exam: Present: soft, tenderness (Right lower quadrant and left lower quadrant tenderness to palpation R>L able to palpate pulse over where patient is having pain in the right lower quadrant), normal bowel sounds. Absent: distended, guarding, rebound, rigid Extremities exam: Present: full ROM, normal capillary refill, other (DP pulses palpable bilaterally, skin warm and pink. Left duke with mild darkened skin pigmentation that patient states has been present since he got a stent placed in his left common iliac artery). Absent: calf tenderness Back exam: Present: full ROM, paraspinal tenderness (Lumbar paraspinal tenderness to palpation which patient states has been present for the last few months after his compression fractures which happened when he was turning/twisting putting on his seatbelt). Absent: CVA tenderness (R), CVA tenderness (L), vertebral tenderness (Patient without pain to palpation of cervical, thoracic, lumbar or sacral spine. Mild paraspinal tenderness to simin mbar area) Neurological exam: Present: alert, oriented X3, CN II-XII intact Psychiatric exam: Present: normal affect, normal mood Skin exam: Present: warm, dry, intact, normal color. Absent: rash Course Vital Signs 01/26/22 16:35 Temperature 98.7 F Pulse Rate 68 Respiratory 18 Rate Blood Pressure 136/83 O2 Sat by Pulse 95 Oximetry - Reevaluation(s) Reevaluation #1: 01/26/22 18:04 On reevaluation, patient states his pain has significantly decreased. 01/26/22 18:32 On reevaluation, patient is sitting up in bed and talking to his . Patient states he is not in significant amount of pain at this time unless RLQ palpated. 01/26/22 19:01 On reevaluation, patient is not in any significant pain and states he is feeling okay at this time. He states he has had some discomfort and pain in his right lower quadrant especially when pushing on the area. 01/26/22 19:29 On reevaluation, patient states he is in pain when palpating his RLQ or lying down flat. Patient is requesting water at this time. Distal pulses palpated. Bilateral lower extremities are warm and pink. Slight discoloration to left lower extremity which patient states has not changed since he had his left iliac stent placed years ago. Medical Decision Making - Medical Decision Making This 86-year-old male presents emergency Department with abdominal pain that began a month ago, worsening over the last couple days R>L. Patient states there has been no change to his chronic low back pain over the last few months since being diagnosed with 2 lumbar compression fractures. Labs without leukocytosis. Coagulation unremarkable. Chemistry with sodium 130, 500 L bolus given of patient. Urine unremarkable. CT abdomen and pelvis with contrast impression no acute abnormalities visualized, however patient still has significant pain over right lower quadrant. Distal pulses palpated bilaterally. Case discussed with my attending, Dr. Zapata who also saw and evaluated the patient. Patient would prefer to stay to be evaluated by Dr. Cook who did his aortic iliac stents in the past, Dr. Zapata agreed to the plan. Patient verbally agreed to plan for further workup, evaluation & treatment. - Lab Data Result diagrams: 01/26/22 17:53 01/26/22 17:53 Lab Results 01/26/22 01/26/22 01/26/22 Range/Units 17:53 17:53 17:53 WBC 6.0 (3.8-10.6) k/uL RBC 3.75 L (4.30-5.90) m/uL Hgb 12.6 L (13.0-17.5) gm/dL Hct 37.4 L (39.0-53.0) % MCV 99.8 (80.0-100.0) fL MCH 33.6 (25.0-35.0) pg MCHC 33.7 (31.0-37.0) g/dL RDW 12.2 (11.5-15.5) % Plt Count 332 (150-450) k/uL MPV 7.2 Neutrophils % 76 % Lymphocytes % 7 % Monocytes % 13 % Eosinophils % 1 % Basophils % 1 % Neutrophils # 4.6 (1.3-7.7) k/uL Lymphocytes # 0.4 L (1.0-4.8) k/uL Monocytes # 0.8 (0-1.0) k/uL Eosinophils # 0.0 (0-0.7) k/uL Basophils # 0.1 (0-0.2) k/uL PT (9.0-12.0) sec INR (<1.2) APTT (22.0-30.0) sec Sodium 130 L (137-145) mmol/L Potassium 4.2 (3.5-5.1) mmol/L Chloride 96 L (98-107) mmol/L Carbon Dioxide 27 (22-30) mmol/L Anion Gap 7 mmol/L BUN 14 (9-20) mg/dL Creatinine 0.83 (0.66-1.25) mg/dL Est GFR (CKD-EPI)AfAm >90 (>60 ml/min/1.73 sqM) Est GFR (CKD-EPI)NonAf 80 (>60 ml/min/1.73 sqM) Glucose 96 (74-99) mg/dL Plasma Lactic Acid Re[place] (0.7-2.0) mmol/L Calcium 8.6 (8.4-10.2) mg/dL Total Bilirubin 0.6 (0.2-1.3) mg/dL AST 22 (17-59) U/L ALT 15 (4-49) U/L Alkaline Phosphatase 84 (38-126) U/L Total Protein 6.2 L (6.3-8.2) g/dL Albumin 3.2 L (3.5-5.0) g/dL Lipase 87 (23-300) U/L Urine Color Yellow Urine Appearance Clear (Clear) Urine pH 7.0 (5.0-8.0) Ur Specific [place] 1.009 (1.001-1.035) Urine Protein Negative (Negative) Urine Glucose (UA) Negative (Negative) Urine Ketones Negative (Negative) Urine Blood Negative (Negative) Urine Nitrite Negative (Negative) Urine Bilirubin Negative (Negative) Urine Urobilinogen <2.0 (<2.0) mg/dL Ur Leukocyte Esterase Negative (Negative) 01/26/22 01/26/22 Range/Units 17:53 17:53 WBC (3.8-10.6) k/uL RBC (4.30-5.90) m/uL Hgb (13.0-17.5) gm/dL Hct (39.0-53.0) % MCV (80.0-100.0) fL MCH (25.0-35.0) pg MCHC (31.0-37.0) g/dL RDW (11.5-15.5) % Plt Count (150-450) k/uL MPV Neutrophils % % Lymphocytes % % Monocytes % % Eosinophils % % Basophils % % Neutrophils # (1.3-7.7) k/uL Lymphocytes # (1.0-4.8) k/uL Monocytes # (0-1.0) k/uL Eosinophils # (0-0.7) k/uL Basophils # (0-0.2) k/uL PT 11.5 (9.0-12.0) sec INR 1.1 (<1.2) APTT 26.3 (22.0-30.0) sec Sodium (137-145) mmol/L Potassium (3.5-5.1) mmol/L Chloride (98-107) mmol/L Carbon Dioxide (22-30) mmol/L Anion Gap mmol/L BUN (9-20) mg/dL Creatinine (0.66-1.25) mg/dL Est GFR (CKD-EPI)AfAm (>60 ml/min/1.73 sqM) Est GFR (CKD-EPI)NonAf (>60 ml/min/1.73 sqM) Glucose (74-99) mg/dL Plasma Lactic Acid [place] 1.1 (0.7-2.0) mmol/L Calcium (8.4-10.2) mg/dL Total Bilirubin (0.2-1.3) mg/dL AST (17-59) U/L ALT (4-49) U/L Alkaline Phosphatase (38-126) U/L Total Protein (6.3-8.2) g/dL Albumin (3.5-5.0) g/dL Lipase (23-300) U/L Urine Color Urine Appearance (Clear) Urine pH (5.0-8.0) Ur Specific [place] (1.001-1.035) Urine Protein (Negative) Urine Glucose (UA) (Negative) Urine Ketones (Negative) Urine Blood (Negative) Urine Nitrite (Negative) Urine Bilirubin (Negative) Urine Urobilinogen (<2.0) mg/dL Ur Leukocyte Esterase (Negative) - Radiology Data Radiology results: report reviewed, image reviewed Disposition Clinical Impression: Abdominal pain, Chronic low back pain Disposition: ADMITTED IP TO THIS [facility] Condition: Serious Is patient prescribed a controlled substance at d/c from ED?: No Referrals: Victorino Morrissey [Primary Care Provider] - 1-2 days
--- NOTE | 2022-01-26 19:37 | CT ---
EXAMINATION TYPE: CT abdomen pelvis w con DATE OF EXAM: 01/26/2022 COMPARISON: 09/24/2021 and prior HISTORY: lower anterior abdominal pain CT DLP: 699.3 mGycm Automated exposure control for dose reduction was used. TECHNIQUE: Helical acquisition of images was performed from the lung bases through the pelvis. CONTRAST: Performed without Oral Contrast and with IV Contrast, patient injected with 100 mL of Isovue 300. FINDINGS: LUNG BASES: No significant abnormality is appreciated. LIVER/GB: No acute abnormality is appreciated. Scattered few subcentimeter benign hepatic and splenic calcifications, in keeping with prior granulomatous disease. PANCREAS: No definite acute abnormality is seen. Pancreatic ductal dilatation, similar to prior study . Possible pancreatic divisum not excluded. SPLEEN: No acute abnormality is seen. ADRENALS: No significant abnormality is seen. KIDNEYS: No significant abnormality is seen. FREE AIR: No free air is visualized. RETROPERITONEAL ADENOPATHY: None visualized REPRODUCTIVE ORGANS: No significant abnormality is seen URINARY BLADDER: No acute abnormality is seen. 3.9 cm simple right renal cyst. No bilateral hydronep hrosis or nephrolithiasis. PELVIC ADENOPATHY: None visualized. OSSEOUS STRUCTURES: No definite acute abnormality is seen. Prior left hip arthroplasty and left gloria c bone ORIF. Chronic appearing moderate to severe T11 and L2 compression fractures seen. BOWEL: No bowel obstruction or free fluid. Surgical coils in the left hemipelvis seen. OTHER: Advanced atherosclerotic disease with left common iliac artery stent seen. Prostate radiation seeds seen. IMPRESSION: NO DEFINITE ACUTE ABNORMALITY. CHRONIC AND INCIDENTAL FINDINGS ABOVE.
[2022-01-26] MEDS ORDERED: SODIUM CHLORIDE 0.9% 500 ML 500 ML IV STA (20:04)
[2022-01-26] MEDS ORDERED: ONDANSETRON 4 MG/2 ML VIAL IVP PRN (20:18)
[2022-01-26] MEDS ORDERED: NALOXONE 0.4 MG/ML 1 ML VIAL IV PRN (20:18)
[2022-01-26] MEDS: MORPHINE SULFATE 2 MG/ML SYRINGE IV PRN (21:17)
[2022-01-26] MEDS: SODIUM CHLORIDE 0.9% 1,000 ML IV SCH (23:05)
[2022-01-27] MEDS: MORPHINE SULFATE 2 MG/ML SYRINGE IV PRN ×3 (00:23→19:23)
--- NOTE | 2022-01-27 07:21 | P.HPIM ---
History of Present Illness H&P Date: 01/26/22 Chief Complaint: Abdominal pain 86-year-old male with history of CVA, COPD not on home oxygen, colon cancer, prostate cancer, A. fib Patient comes in with vague complaints of lower abdominal pain of more than 1 month duration with associated thin caliber stools. Patient denies any nausea vomiting reports the pain is kind of sharp sometimes vague 5 out of 10 in severity bilateral lower quadrants comes and goes. No fevers no chills denies any chest pain or trouble breathing. Patient denies any GI bleeding Patient also reports low back pain with recurrent compression fractures of the lumbar vertebrae he is following up with orthopedics outpatient Computed tomography scan of the abdomen in the ED did not show any acute findings. However emergency doctor reported some changes around the stent that was placed years ago around the iliofemoral arteries for which she suggested admission for evaluation by vascular surgery. Otherwise blood work was unremarkable lactic acid unremarkable patient has mild anemia Review of Systems Pertinent positives as noted in HPI. All other systems were reviewed and are negative 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,ventricular PVCs,hiatal hernia,bowel irregularity,prostate CA,colon CA-Chemo 1996,bilcataract History of Any Multi-Drug Resistant Organisms: MRSA Date of last positivie culture/infection: 06/22/17 MDRO Source:: Right Eye Past Surgical History: Bowel Resection, Heart Catheterization, Joint Replacement, Prostate Surgery Additional Past Surgical History / Comment(s): prostatectomy,left hip replaced x6,vanita cataracts, pre cancerous skin lesions removed, rt knee menisus sx,' "mass removed from rt carotid artery-benign" Past Anesthesia/Blood Transfusion Reactions: No Reported Reaction Past Psychological History: No Psychological Hx Reported Additional Psychological History / Comment(s): pt lives with in 2 story home-bedrooms on . 3 [address]. no pets. uses cane. no home care services. never served in but did [employer] work. is a retired teacher. Smoking Status: Never smoker Past Alcohol Use History: None Reported Additional Past Alcohol Use History / Comment(s): smoked at a young age for very short period of time Past Drug Use History: None Reported - Past Family History Mother Family Medical History: Congestive Heart Failure (CHF) Additional Family Medical History / Comment(s): age 76 Father Family Medical History: COPD Additional Family Medical History / Comment(s): at age 65- Medications and Allergies Home Medications Medication Instructions Recorded Confirmed Type Calcium Carbonate [Calcium] 600 mg PO DAILY 06/08/17 01/26/22 History Dronedarone [Multaq] 1,200 mg PO DAILY 06/08/17 01/26/22 History Ferrous Sulfate [Iron (65 MG 325 mg PO DAILY 06/08/17 01/26/22 History Elemental)] Glucosam/Edvin-Msm1/C/Lux/Bosw 1 tab PO DAILY 06/08/17 01/26/22 History [Glucosamine-Chondroitin Tablet] Metoprolol Tartrate [Lopressor] 25 mg PO DAILY 06/08/17 01/26/22 History Montelukast Sodium [Singulair] 10 mg PO DAILY 06/08/17 01/26/22 History Simvastatin [Zocor] 20 mg PO DAILY 06/08/17 01/26/22 History predniSONE 5 mg PO DAILY 06/08/17 01/26/22 History Budesonide/Formoterol Fumarate 2 puff INHALATION RT-BID 03/29/18 01/26/22 History [Symbicort 160-4.5 Mcg Inhaler] Apixaban [Eliquis] 2.5 mg PO BID #60 tablet 03/31/18 01/26/22 Rx Acetaminophen-Codeine 300-30mg 1 tab PO DAILY PRN 01/26/22 01/26/22 History [Tylenol w/codeine #3] Baclofen [Lioresal] 10 mg PO TID PRN 01/26/22 01/26/22 History Cholecalciferol [Vitamin D3 (125 125 mcg PO DAILY 01/26/22 01/26/22 History Mcg = 5000 Iu)] Diclofenac Sodium Gel [Voltaren 2 gm TOPICAL TID PRN 01/26/22 01/26/22 History Gel] Famotidine 20 mg PO BID 01/26/22 01/26/22 History HYDROcodone/APAP 5-325MG [[place] 1 tab PO BID PRN 01/26/22 01/26/22 History 5-325] Ipratropium/Albuterol Sulfate 1 puff INHALATION RT-QID 01/26/22 01/26/22 History [Combivent Respimat Inhaler] Multivitamins, Thera [Multivitamin 1 tab PO DAILY 01/26/22 01/26/22 History (formulary)] Allergies Allergy/AdvReac Type Severity Reaction Status Date / Time azithromycin Allergy tissue Verified 01/26/22 16:41 sloughing doxycycline [From Vibramycin] Allergy Tissue Verified 01/26/22 18:35 Sloughing in mouth moxifloxacin [From Avelox] Allergy red skin Verified 01/26/22 18:35 Penicillins Allergy Rash/Hives Verified 01/26/22 18:35 & Swelling lips Sulfa (Sulfonamide Allergy Rash/Hives Verified 01/26/22 16:41 Antibiotics) Physical Exam Vitals: Vital Signs Temp Pulse Pulse Resp BP BP BP 01/27/22 02:30 97.3 F L 78 18 118/74 01/26/22 23:07 97.7 F 97 24 133/61 01/26/22 22:47 59 L 20 127/73 01/26/22 16:35 98.7 F 68 18 136/83 Pulse Ox 01/27/22 02:30 96 01/26/22 23:07 96 01/26/22 22:47 93 L 01/26/22 16:35 95 Intake and Output 01/26/22 01/27/22 01/27/22 22:59 06:59 14:59 Other: # Voids 1 1 Weight 63.503 kg Constitutional: No acute distress, conversant, pleasant Eyes: Anicteric sclerae, moist conjunctiva, Pupils equal round reactive to light ENMT: NC/AT Oropharynx clear, no erythema, or exudates Neck: Supple, no masses, or JVD No carotid bruits No thyromegaly Lungs: Clear to auscultation Clear to percussion Normal respiratory effort, no accessory muscle use Cardiovascular: Heart regular in rate and rhythm, No murmurs, gallops, or rubs No peripheral edema Abdominal: Soft Nontender, some discomfort in the lower abdomen with deep palpation, no guarding, rebound or rigidity Abdomen moving with respiration Normoactive bowel sounds No hepatomegaly, No splenomegaly No palpable mass No abdominal wall hernia noted Skin: Normal temperature, tone, texture, turgor No induration No subcutaneous nodules No rash, lesions No ulcers Extremities: No digital cyanosis No clubbing Pedal pulses intact and symmetrical Radial pulses intact and symmetrical No calf tenderness Psychiatric: Alert and oriented to person, place and time Appropriate affect fair judgement Neuro Muscles Strength 4/5 in all 4 extremities Sensation to light touch grossly present throughout Cranial nerves II-XII grossly intact No focal sensory deficits Lymphatics: no palpable cervical or supraclavicular , or inguinal lymph nodes Results CBC & Chem 7: 01/26/22 17:53 01/26/22 17:53 Labs: Abnormal Lab Results - Last 24 Hours (Table) 01/26/22 01/26/22 Range/Units 17:53 17:53 RBC 3.75 L (4.30-5.90) m/uL Hgb 12.6 L (13.0-17.5) gm/dL Hct 37.4 L (39.0-53.0) % Lymphocytes # 0.4 L (1.0-4.8) k/uL Sodium 130 L (137-145) mmol/L Chloride 96 L (98-107) mmol/L Total Protein 6.2 L (6.3-8.2) g/dL Albumin 3.2 L (3.5-5.0) g/dL Thrombosis Risk Factor Assmnt - Choose All That Apply Any of the Below Risk Factors Present?: Yes Each Factor Represents 1 point: Abnormal pulmonary function (COPD) Other Risk Factors: Yes Each Risk Factor Represents 3 Points: Age 75 years or older Other congenital or acquired thrombophilia - If yes, enter type in comment: No Thrombosis Risk Factor Assessment Total Risk Factor Score: 4 Thrombosis Risk Factor Assessment Level: Moderate Risk Assessment and Plan Assessment: Abdominal pain within caliber stools Surgery consultation to consider colonoscopy Patient has history of colon cancer History of prostate cancer, history of prostatectomy PPI [place] for pain control Gentle IV fluid hydration Patient has history of iliofemoral artery stent placement Radiologist reported some changes around that area Vascular surgery to reevaluate Peripheral pulses are intact Mild anemia Patient denies GI bleeding Continue to monitor Hyponatremia Possibly secondary to poor by mouth intake Continue with IV fluid hydration normal saline Continue to reevaluate electrolytes Recurrent lumbar compression fractures Pain control with [place] Continue to follow up with orthopedics outpatient Chronic conditions COPD not on home oxygen continue with home medications A. fib, currently rate controlled continue with home medications and Eliquis Hypertension continue with home blood pressure meds DVT prophylaxis patient on Eliquis for A. fib Anticipated length of stay less than 2 midnights Full code Fall precautions
[2022-01-27] MEDS: APIXABAN 2.5 MG TABLET PO SCH ×2 (08:08→19:22)
[2022-01-27] MEDS: ATORVASTATIN 10 MG TAB PO SCH (08:08)
[2022-01-27] MEDS: DRONEDARONE 400 MG TAB PO SCH (08:08)
[2022-01-27] MEDS: METOPROLOL TARTRATE 25 MG TAB PO SCH (08:08)
[2022-01-27] MEDS: MONTELUKAST 10 MG TAB PO SCH (08:08)
[2022-01-27] MEDS: predniSONE 5 MG TAB PO SCH (08:09)
[2022-01-27] MEDS: HYDROcodone/APAP 5-325MG 1 EACH TAB PO PRN (08:15)
[2022-01-27] MEDS ORDERED: BACLOFEN 10 MG TAB PO PRN (08:18)
[2022-01-27] MEDS: SYMBICORT 160-4.5 MCG INHALER INHALATION SCH ×2 (08:34→21:25)
[2022-01-27] MEDS ORDERED: polyethylene glycoL 3350 17 GM POWD.PACK PO SCH (09:45)
[2022-01-27] MEDS: FERROUS SULFATE 325 MG TAB PO SCH (10:09)
[2022-01-27] MEDS: SODIUM CHLORIDE 0.9% 1,000 ML IV SCH ×2 (10:10→22:46)
[2022-01-27 11:10] LABS: HCT 37.3 % (39.0-53.0); MCH 32.9 pg (25.0-35.0); MCHC 32.2 g/dL (31.0-37.0); MCV 102.3 fL (80.0-100.0); Mean Platelet Volume 7.1; Platelet Count 300 k/uL (150-450); RBC 3.65 m/uL (4.30-5.90); RDW 12.3 % (11.5-15.5); WBC 6.9 k/uL (3.8-10.6)
[2022-01-27 11:24] LABS: ALT 13 U/L (4-49); AST 21 U/L (17-59); African American GFR (CKD) 82 (>60 ml/min/1.73 sqM); Albumin 2.9 g/dL (3.5-5.0); Alkaline Phosphatase 63 U/L (38-126); Anion Gap 3 mmol/L; Blood Urea Nitrogen 16 mg/dL (9-20); Calcium 8.4 mg/dL (8.4-10.2); Carbon Dioxide 32 mmol/L (22-30); Chloride 96 mmol/L (98-107); Globulin 2.9 g/dL; Glucose 122 mg/dL (74-99); Magnesium 1.7 mg/dL (1.6-2.3); Non-African American GFR(CKD) 71 (>60 ml/min/1.73 sqM); Potassium 4.6 mmol/L (3.5-5.1); Sodium 131 mmol/L (137-145); Total Bilirubin 0.5 mg/dL (0.2-1.3); Total Protein 5.8 g/dL (6.3-8.2)
[2022-01-27] MEDS: IPRATROPIUM-ALBUTEROL 3 ML NEB INHALATION SCH ×3 (11:29→21:26)
--- NOTE | 2022-01-27 11:39 | P.GSCN ---
<Shania Valero - Last Filed: 01/27/22 14:18> History of Present Illness Consult date: 01/27/22 Reason for Consult: Abdominal pain History of present illness: CHIEF COMPLAINT: Abdominal pain HISTORY OF PRESENT ILLNESS: This is an 86-year-old male who presented to the emergency department with complaints of lower abdominal pain for more than one month duration. He has a past medical history including CVA, COPD, colon cancer status post resection in the , prostate cancer and atrial fibrillation on Eliquis. He states he also has chronic low back pain and has a history of compression fractures. He states the pain is intermittent and can be severe at times, which she states mostly occurs at night. He states that once he gets into a good position and then the pain subsides. He states he does have history of constipation since his prostate surgery and was seen at [facility] about 2 weeks ago for constipation of 5 days. He was given a computed tomography scan and workup and told everything was normal. He was given 2 enemas and had a good bowel movement was discharged home. He states since then he has been using fleets enema as needed and has started MiraLAX and has been having more regulated bowel movements. He denies any blood in his stool or black stool. He states his stool is comes out and then pencil like bowel movements. His last colonoscopy was 5 years ago with which the patient states he was told was good and he did not need another colonoscopy. He had a CT of the abdomen and pelvis shows no definite acute abnormality. PAST MEDICAL HISTORY: See list. PAST SURGICAL HISTORY: See list. MEDICATIONS: See list. ALLERGIES: See list. SOCIAL HISTORY: No illicit drug use. REVIEW OF SYSTEMS: CONSTITUTIONAL: Denies fever or chills. HEENT: Denies blurred vision, vision changes, or eye pain. Denies hemoptysis CARDIOVASCULAR: Denies chest pain or pressure. RESPIRATORY: No shortness of breath. GASTROINTESTINAL: See HPI for pertinent findings HEMATOLOGIC: Denies bleeding disorders. GENITOURINARY: Denies any blood in urine or increased urinary frequency. SKIN: Denies pruitis. Denies rash. PHYSICAL EXAM: VITAL SIGNS: Reviewed GENERAL: Well-developed in no acute distress. HEENT: No sclera icterus. Extraocular movements grossly intact. Moist buccal mucosa. Head is atraumatic, normocephalic. No nasal drainage. ABDOMEN: Soft. Thin. Nondistended. Tenderness with palpation to right and left lower quadrant. NEUROLOGIC: Alert and oriented. Cranial nerves II through XII grossly intact. LABORATORY DATA: WBC 6.0 hemoglobin 12.6 hematocrit 37 platelet count 332,000 INR 1.1 Sodium 1:30 potassium 4.2 BUN 14 creatinine 0.8 glucose 96 Total bilirubin 0.6 AST 22 ALT 15 alkaline phosphatase 84 lipase 87 IMAGING: CT abdomen and pelvis with contrast shows no definite acute abnormality. ASSESSMENT: 1. Abdominal pain 2. Chronic Constipation 3. Back pain 4. History of colon cancer status post resection 5. History of prostate cancer 6. Atrial fibrillation on Eliquis PLAN: 1. Will start on MiraLAX, can titrate 1-2 times a day 2. Continue diet as tolerated 3. Further recommendations forthcoming per general surgeon The impression and plan of care has been dictated as directed. I performed a history and examination of this patient, discussed the same with the dictator. I agree with the dictator's note ,documented as a scribe. Any additional findings or plans will be noted. Past Medical History Past Medical History: Atrial Fibrillation, Coronary Artery Disease (CAD), C ancer, COPD, CVA/TIA, Prostate Disorder Additional Past Medical History / Comment(s): CVA-no residual,ventricular PVCs,hiatal hernia,bowel irregularity,prostate CA,colon CA-Chemo 1996,bilcataract History of Any Multi-Drug Resistant Organisms: MRSA Year Discovered:: 06/22/17 MDRO Source:: Right Eye Past Surgical History: Bowel Resection, Heart Catheterization, Joint Replaceme nt, Prostate Surgery Additional Past Surgical History / Comment(s): prostatectomy,left hip replaced x6,vanita cataracts, pre cancerous skin lesions removed, rt knee menisus sx,' "mass removed from rt carotid artery-benign" Past Anesthesia/Blood Transfusion Reactions: No Reported Reaction Past Psychological History: No Psychological Hx Reported Additional Psychological History / Comment(s): pt lives with in 2 story home-bedrooms on . 3 [address]. no pets. uses cane. no home care [place]. never served in but did [employer] work. is a retired teacher. Smoking Status: Never smoker Past Alcohol Use History: None Reported Additional Past Alcohol Use History / Comment(s): smoked at a young age for very short period of time Past Drug Use History: None Reported - Past Family History Mother Family Medical History: Congestive Heart Failure (CHF) Additional Family Medical History / Comment(s): age 76 Father Family Medical History: COPD Additional Family Medical History / Comment(s): at age 65- Medications and Allergies Home Medications Medication Instructions Recorded Confirmed Type Calcium Carbonate [Calcium] 600 mg PO DAILY 06/08/17 01/26/22 History Dronedarone [Multaq] 1,000 mg PO DAILY 06/08/17 01/27/22 History Ferrous Sulfate [Iron (65 MG 325 mg PO DAILY 06/08/17 01/26/22 History Elemental)] Glucosam/Edvin-Msm1/C/Lux/Bosw 1 tab PO DAILY 06/08/17 01/26/22 History [Glucosamine-Chondroitin Tablet] Metoprolol Tartrate [Lopressor] 25 mg PO DAILY 06/08/17 01/26/22 History Montelukast Sodium [Singulair] 10 mg PO DAILY 06/08/17 01/26/22 History Simvastatin [Zocor] 20 mg PO DAILY 06/08/17 01/26/22 History predniSONE 5 mg PO DAILY 06/08/17 01/26/22 History Budesonide/Formoterol Fumarate 2 puff INHALATION RT-BID 03/29/18 01/26/22 History [Symbicort 160-4.5 Mcg Inhaler] Apixaban [Eliquis] 2.5 mg PO BID #60 tablet 03/31/18 01/26/22 Rx Acetaminophen-Codeine 300-30mg 1 tab PO DAILY PRN 01/26/22 01/26/22 History [Tylenol w/codeine #3] Baclofen [Lioresal] 10 mg PO TID PRN 01/26/22 01/26/22 History Cholecalciferol [Vitamin D3 (125 125 mcg PO DAILY 01/26/22 01/26/22 History Mcg = 5000 Iu)] Diclofenac Sodium Gel [Voltaren 2 gm TOPICAL TID PRN 01/26/22 01/26/22 History Gel] Famotidine 20 mg PO BID 01/26/22 01/26/22 History HYDROcodone/APAP 5-325MG [[place] 1 tab PO BID PRN 01/26/22 01/26/22 History 5-325] Ipratropium/Albuterol Sulfate 1 puff INHALATION RT-QID 01/26/22 01/26/22 History [Combivent Respimat Inhaler] Multivitamins, Thera [Multivitamin 1 tab PO DAILY 01/26/22 01/26/22 History (formulary)] Allergies Allergy/AdvReac Type Severity Reaction Status Date / Time azithromycin Allergy tissue Verified 01/26/22 16:41 sloughing doxycycline [From Vibramycin] Allergy Tissue Verified 01/26/22 18:35 Sloughing in mouth moxifloxacin [From Avelox] Allergy red skin Verified 01/26/22 18:35 Penicillins Allergy Rash/Hives Verified 01/26/22 18:35 & Swelling lips Sulfa (Sulfonamide Allergy Rash/Hives Verified 01/26/22 16:41 Antibiotics) Surgical - Exam Vital Signs Temp Pulse Resp BP Pulse Ox 98.7 F 68 18 136/83 95 01/26/22 16:35 01/26/22 16:35 01/26/22 16:35 01/26/22 16:35 01/26/22 16:35 Results - Labs 01/27/22 10:45 01/27/22 10:45 Abnormal Lab Results - Last 24 Hours (Table) 01/26/22 01/26/22 Range/Units 17:53 17:53 RBC 3.75 L (4.30-5.90) m/uL Hgb 12.6 L (13.0-17.5) gm/dL Hct 37.4 L (39.0-53.0) % Lymphocytes # 0.4 L (1.0-4.8) k/uL Sodium 130 L (137-145) mmol/L Chloride 96 L (98-107) mmol/L Total Protein 6.2 L (6.3-8.2) g/dL Albumin 3.2 L (3.5-5.0) g/dL Diabetes panel 01/26/22 Range/Units 17:53 Sodium 130 L (137-145) mmol/L Potassium 4.2 (3.5-5.1) mmol/L Chloride 96 L (98-107) mmol/L Carbon Dioxide 27 (22-30) mmol/L BUN 14 (9-20) mg/dL Creatinine 0.83 (0.66-1.25) mg/dL Glucose 96 (74-99) mg/dL Calcium 8.6 (8.4-10.2) mg/dL AST 22 (17-59) U/L ALT 15 (4-49) U/L Alkaline Phosphatase 84 (38-126) U/L Total Protein 6.2 L (6.3-8.2) g/dL Albumin 3.2 L (3.5-5.0) g/dL Calcium panel 01/26/22 Range/Units 17:53 Calcium 8.6 (8.4-10.2) mg/dL Albumin 3.2 L (3.5-5.0) g/dL Pituitary panel 01/26/22 Range/Units 17:53 Sodium 130 L (137-145) mmol/L Potassium 4.2 (3.5-5.1) mmol/L Chloride 96 L (98-107) mmol/L Carbon Dioxide 27 (22-30) mmol/L BUN 14 (9-20) mg/dL Creatinine 0.83 (0.66-1.25) mg/dL Glucose 96 (74-99) mg/dL Calcium 8.6 (8.4-10.2) mg/dL Adrenal panel 01/26/22 Range/Units 17:53 Sodium 130 L (137-145) mmol/L Potassium 4.2 (3.5-5.1) mmol/L Chloride 96 L (98-107) mmol/L Carbon Dioxide 27 (22-30) mmol/L BUN 14 (9-20) mg/dL Creatinine 0.83 (0.66-1.25) mg/dL Glucose 96 (74-99) mg/dL Calcium 8.6 (8.4-10.2) mg/dL Total Bilirubin 0.6 (0.2-1.3) mg/dL AST 22 (17-59) U/L ALT 15 (4-49) U/L Alkaline Phosphatase 84 (38-126) U/L Total Protein 6.2 L (6.3-8.2) g/dL Albumin 3.2 L (3.5-5.0) g/dL <Zhang Felix - Last Filed: 01/27/22 19:15> History of Present Illness History of present illness: I have personally seen and examined the patient, reviewed the LICENSED NURSING ASSISTANT /PAs history, exam and MDM and agree with the assessment and plan as written. Based on total visit time, I have performed more than 50% of the visit. As above: Patient with right-sided abdominal pain for the last 1 month. Says the pain does wax and wane somewhat. Does not seem to be related to eating. Patient with history of constipation however states that when he has a bowel movement but does not seem to affect his abdominal discomfort. Patient had a CAT scan during an ER visit a few weeks ago at [facility] and again had a CAT scan here. Urinalysis is clear with no hematuria. We will order abdominal ultrasound at this time. Continue stool softeners. Elective outpatient colonoscopy discussed. We'll reevaluate tomorrow. Surgical - Exam Vital Signs Temp Pulse Resp BP Pulse Ox 98.7 F 68 18 136/83 95 01/26/22 16:35 01/26/22 16:35 01/26/22 16:35 01/26/22 16:35 01/26/22 16:35 Results - Labs 01/27/22 10:45 01/27/22 10:45 Abnormal Lab Results - Last 24 Hours (Table) 01/27/22 01/27/22 Range/Units 10:45 10:45 RBC 3.65 L (4.30-5.90) m/uL Hgb 12.0 L (13.0-17.5) gm/dL Hct 37.3 L (39.0-53.0) % MCV 102.3 H (80.0-100.0) fL Sodium 131 L (137-145) mmol/L Chloride 96 L (98-107) mmol/L Carbon Dioxide 32 H (22-30) mmol/L Glucose 122 H (74-99) mg/dL Total Protein 5.8 L (6.3-8.2) g/dL Albumin 2.9 L (3.5-5.0) g/dL Diabetes panel 01/27/22 Range/Units 10:45 Sodium 131 L (137-145) mmol/L Potassium 4.6 (3.5-5.1) mmol/L Chloride 96 L (98-107) mmol/L Carbon Dioxide 32 H (22-30) mmol/L BUN 16 (9-20) mg/dL Creatinine 0.98 (0.66-1.25) mg/dL Glucose 122 H (74-99) mg/dL Calcium 8.4 (8.4-10.2) mg/dL AST 21 (17-59) U/L ALT 13 (4-49) U/L Alkaline Phosphatase 63 (38-126) U/L Total Protein 5.8 L (6.3-8.2) g/dL Albumin 2.9 L (3.5-5.0) g/dL Calcium panel 01/27/22 Range/Units 10:45 Calcium 8.4 (8.4-10.2) mg/dL Albumin 2.9 L (3.5-5.0) g/dL Pituitary panel 01/27/22 Range/Units 10:45 Sodium 131 L (137-145) mmol/L Potassium 4.6 (3.5-5.1) mmol/L Chloride 96 L (98-107) mmol/L Carbon Dioxide 32 H (22-30) mmol/L BUN 16 (9-20) mg/dL Creatinine 0.98 (0.66-1.25) mg/dL Glucose 122 H (74-99) mg/dL Calcium 8.4 (8.4-10.2) mg/dL Adrenal panel 01/27/22 Range/Units 10:45 Sodium 131 L (137-145) mmol/L Potassium 4.6 (3.5-5.1) mmol/L Chloride 96 L (98-107) mmol/L Carbon Dioxide 32 H (22-30) mmol/L BUN 16 (9-20) mg/dL Creatinine 0.98 (0.66-1.25) mg/dL Glucose 122 H (74-99) mg/dL Calcium 8.4 (8.4-10.2) mg/dL Total Bilirubin 0.5 (0.2-1.3) mg/dL AST 21 (17-59) U/L ALT 13 (4-49) U/L Alkaline Phosphatase 63 (38-126) U/L Total Protein 5.8 L (6.3-8.2) g/dL Albumin 2.9 L (3.5-5.0) g/dL
--- NOTE | 2022-01-27 18:14 | P.PN ---
Subjective Progress Note Date: 01/27/22 Hospital course: Patient is a very pleasant 86-year-old male with a past medical history of CAD, CVA, atrial fibrillation on anticoagulation with Eliquis, COPD, colon and prostate cancer status post colon resection and prostatectomy with radiation and chemotherapy treatments, and chronic back pain with known compressive fractures following outpatient with orthopedic surgery. Patient presented to the emergency department on 01/26/22 with a chief complaint of right lower quadrant ab dominal pain described as sharp in nature accompanied by thin caliber stools. Patient reports this is been ongoing for the past couple weeks but reports over the past few days this pain has significantly worsened. CT abdomen and pelvis completed negative for acute intra-abdominal abnormalities. CBC showing no significant abnormalities. BMP revealing mild hyponatremia with sodium of 130. Urinalysis negative for infection. Patient was admitted to observation under our services with consultation to general surgery. Physical exam: Patient seen and fully evaluated at the bedside this morning. He continues to have intermittent pains in his right lower quadrant and reports tenderness upon palpation. Morning labs reviewed showing no significant abnormalities. Sodium slightly improving to 131. Patient was tolerating oral intake and denies having a bowel movement today. Awaiting general surgery to evaluate and further recommendations. Vital signs reviewed and stable. General: Nontoxic, no distress and appears stated age. Derm: Skin warm and dry, normal coloration for ethnicity. Head: Atraumatic, normocephalic and symmetric. Eyes: EOMs intact, no lid lag, and anicteric sclera Mouth: no lip lesions, mucus membranes moist Cardiovascular: regular rate and rhythm with normal S1S2, no murmur, positive posterior tibial pulses bilaterally, and cap refill < 2 seconds. Lungs: Respirations even, regular, and unlabored on room air. Lungs CTA bilaterally, no rhonchi, no rales, no wheezing, and no accessory muscle usage. Abdominal: soft, nontender to palpation, no guarding, no appreciable organomegaly Ext: ROM intact. No gross muscle atrophy, no edema, no contractures Neuro: Speech clear, face symmetrical and CN II-XII grossly intact with no noted focal neuro deficits Psych: Alert and oriented to person, place, time, and situation. Appropriate and pleasant affect. Assessment and Plan of Care: Abdominal pain within caliber stools -Surgery consultation to consider colonoscopy -Patient has history of colon cancer -History of prostate cancer, history of prostatectomy -PPI -[place] for pain control -Gentle IV fluid hydration Patient has history of iliofemoral artery stent placement -Radiologist reported some changes around that area -Vascular surgery to reevaluate -Peripheral pulses are intact Mild anemia -Patient denies GI bleeding -Continue to monitor Hyponatremia -Possibly secondary to poor by mouth intake -Continue with IV fluid hydration normal saline -Continue to reevaluate electrolytes Recurrent lumbar compression fractures -Pain control with [place] -Continue to follow up with orthopedics outpatient Chronic conditions COPD not on home oxygen continue with home medications A. fib, currently rate controlled continue with home medications and Eliquis Hypertension continue with home blood pressure meds CODE STATUS: Full code DVT prophylaxis: Eliquis Discussed with: Patient and RN Anticipated discharge date: 1-2 days pending recommendations from general surgery Anticipated discharge place: Home A total of 38 minutes was spent on the care of this complex patient more than 50% of the time was spent in counseling and care coordination. Objective - Vital Signs Vital signs: Vital Signs Temp 97.3 F L 01/27/22 02:30 Pulse 78 01/27/22 02:30 Resp 18 01/27/22 02:30 BP 118/74 01/27/22 02:30 Pulse Ox 96 01/27/22 02:30 Intake & Output 01/26/22 01/27/22 01/27/22 18:59 06:59 18:59 Weight 63.503 kg 63.503 kg Other: # Voids 1 - Labs CBC & Chem 7: 01/27/22 10:45 01/27/22 10:45 Labs: Abnormal Lab Results - Last 24 Hours (Table) 01/26/22 01/26/22 Range/Units 17:53 17:53 RBC 3.75 L (4.30-5.90) m/uL Hgb 12.6 L (13.0-17.5) gm/dL Hct 37.4 L (39.0-53.0) % Lymphocytes # 0.4 L (1.0-4.8) k/uL Sodium 130 L (137-145) mmol/L Chloride 96 L (98-107) mmol/L Total Protein 6.2 L (6.3-8.2) g/dL Albumin 3.2 L (3.5-5.0) g/dL
[2022-01-28] MEDS: MORPHINE SULFATE 2 MG/ML SYRINGE IV PRN ×3 (05:12→17:39)
[2022-01-28] MEDS: HYDROcodone/APAP 5-325MG 1 EACH TAB PO PRN ×2 (07:43→19:15)
[2022-01-28] MEDS: MONTELUKAST 10 MG TAB PO SCH (07:43)
[2022-01-28] MEDS: METOPROLOL TARTRATE 25 MG TAB PO SCH (07:44)
[2022-01-28] MEDS: predniSONE 5 MG TAB PO SCH (07:44)
[2022-01-28] MEDS: APIXABAN 2.5 MG TABLET PO SCH ×2 (07:44→19:15)
[2022-01-28] MEDS: DRONEDARONE 400 MG TAB PO SCH (07:44)
[2022-01-28] MEDS: FERROUS SULFATE 325 MG TAB PO SCH (07:44)
[2022-01-28] MEDS: ATORVASTATIN 10 MG TAB PO SCH (07:44)
[2022-01-28] MEDS: IPRATROPIUM-ALBUTEROL 3 ML NEB INHALATION SCH ×4 (08:36→20:18)
[2022-01-28] MEDS: SYMBICORT 160-4.5 MCG INHALER INHALATION SCH ×2 (08:36→20:17)
--- NOTE | 2022-01-28 09:37 | US ---
EXAMINATION TYPE: US abdomen complete DATE OF EXAM: 01/28/2022 COMPARISON: CT dated 01/26/2022 CLINICAL HISTORY: Right mid abdominal pain. Back pain, RLQ pain EXAM MEASUREMENTS: Liver Length: 13.2 cm Gallbladder Wall: 0.2 cm Spleen: 6.8 cm Right Kidney: 9.1 x 3.3 x 3.5 cm Left Kidney: 10.7 x 5.7 x 4.4 cm technical limitations due to large amount of overlying bowel content Pancreas: Obscured by bowel gas Liver: limited evaluation, appears wnl Gallbladder: no evidence of stones Evidence for sonographic Wolf's sign: no CBD: Obscured by overlying bowel gas Spleen: appears wnl Right Kidney: cystic area upper pole = 4.3 x 4.0 x 4.0cm Left Kidney: no evidence of hydronephrosis Upper IVC: wnl Abd Aorta: proximal obscured. Calcifications noted within visualized portions. right iliac artery ap pears upper limits of normal Technically difficult ultrasound due to overlying bowel gas. No definite hepatic focal lesion. Grossl y unremarkable gallbladder. Small spleen. Right upper pole simple renal cyst. No evidence of hydronep hrosis or renal calculi bilaterally. Tortuous abdominal aorta with ectatic iliac arteries. IMPRESSION: No definite acute abnormality identified in the abdomen. Incidental findings as described above.
[2022-01-28] MEDS: polyethylene glycoL 3350 17 GM POWD.PACK PO SCH ×3 (09:58→19:17)
--- NOTE | 2022-01-28 12:15 | P.PN ---
<Shania Valero - Last Filed: 01/28/22 11:54> Subjective Progress Note Date: 01/28/22 CHIEF COMPLAINT: Abdominal pain, back pain HISTORY OF PRESENT ILLNESS: This is a 86-year-old male who had presented to the emergency department with complaints of lower abdominal pain for more than one month's duration. After talking with the patient today he states he still having pain mostly in the right lower quadrant and right flank which wraps around to his back. Patient states he had seen Dr. Sierra recently within the last 1-2 weeks for compression fractures in his lower back. He was told that there was not much that could be done and was given a back brace which she states was uncomfortable so he did not wear. He was told that there was no surgical intervention planned due to his age. He does state that he has a follow-up with him next week. He denies any nausea or vomiting. He has not had a bowel movement since Monday. He remains afebrile. Abdominal ultrasound reports no definite acute abnormality identified in the abdomen. Right kidney cystic area upper pole 4.3 x 4.0 x 4.0 cm left, kidney no evidence of hydronephrosis. PHYSICAL EXAM: VITAL SIGNS: Reviewed. GENERAL: Well-developed in no acute distress. HEENT: No sclera icterus. Extraocular movements grossly intact. Moist buccal mucosa. Head is atraumatic, normocephalic. ABDOMEN: Soft. Nondistended. Right lower quadrant and flank tenderness with palpation. NEUROLOGIC: Alert and oriented. Cranial nerves II through XII grossly intact. ASSESSMENT: 1. Abdominal pain 2. Chronic Constipation 3. Low back pain 4. History of colon cancer status post resection in 5. History of prostate cancer 6. Atrial fibrillation on Eliquis PLAN: 1. Diet as tolerated 2. Increase MiraLAX to twice a day 3. Physical therapy consulted 4. Recommend follow-up with orthopedics Dr. Hernández, establish with patient 5. Possible outpatient colonoscopy 6. Encourage ambulation 7. Further recommendations forthcoming per surgeon The impression and plan of care has been dictated as directed. Dr. Felix I performed a history and examination of this patient, discussed the same with the dictator. I agree with the dictator's note ,documented as a scribe. Any additional findings or plans will be noted. Objective - Vital Signs Vital signs: Vital Signs Temp 97.5 F L 01/28/22 07:00 Pulse 88 01/28/22 08:00 Resp 18 01/28/22 08:00 BP 147/86 01/28/22 07:00 Pulse Ox 96 01/28/22 07:00 Intake & Output 01/27/22 01/28/22 01/28/22 18:59 06:59 18:59 Intake Total 476 Output Total 350 350 Balance 126 -350 Intake: Oral 476 Output: Urine 350 350 Other: Voiding Method Urinal Urinal Urinal # Voids 3 2 - Labs CBC & Chem 7: 01/27/22 10:45 01/27/22 10:45 <Zhang Felix - Last Filed: 01/28/22 17:11> Subjective I have personally seen and examined the patient, reviewed the ASSOCIATE ART DIRECTOR /PAs history, exam and MDM and agree with the assessment and plan as written. Based on total visit time, I have performed more than 50% of the visit. As above: Patient still having intermittent pain. Agree with Juliano and Dr. Cook the pain is likely related to his recent compression fractures. Will give one bottle of magnesium citrate at this time. Continue regular diet. Objective - Vital Signs Vital signs: Vital Signs Temp 99.5 F 01/28/22 15:18 Pulse 86 01/28/22 15:18 Resp 16 01/28/22 15:18 BP 120/72 01/28/22 15:18 Pulse Ox 94 L 01/28/22 15:18 Intake & Output 01/27/22 01/28/22 01/28/22 18:59 06:59 18:59 Intake Total 476 300 Output Total 350 350 180 Balance 126 -350 120 Intake: Oral 476 300 Output: Urine 350 350 180 Other: Voiding Method Urinal Urinal Urinal # Voids 3 2 1 - Labs CBC & Chem 7: 01/27/22 10:45 01/27/22 10:45
[2022-01-28] MEDS: SODIUM CHLORIDE 0.9% 1,000 ML IV SCH (13:15)
--- NOTE | 2022-01-28 13:45 | P.PN ---
Subjective Progress Note Date: 01/28/22 Principal diagnosis: constipation still constipated. No BM. Abdominal pain is improved. No nausea or vomiting. Objective - Vital Signs Vital signs: Vital Signs Temp 97.5 F L 01/28/22 07:00 Pulse 88 01/28/22 08:00 Resp 18 01/28/22 08:00 BP 147/86 01/28/22 07:00 Pulse Ox 96 01/28/22 07:00 Intake & Output 01/27/22 01/28/22 01/28/22 18:59 06:59 18:59 Intake Total 476 Output Total 350 350 Balance 126 -350 Intake: Oral 476 Output: Urine 350 350 Other: Voiding Method Urinal Urinal Urinal # Voids 3 2 - Exam Constitutional: No acute distress, conversant, pleasant Eyes:Anicteric sclerae, moist conjunctiva, no lid-lag, PERRLA, ENMT: Oropharynx clear, no erythema, exudates Neck: Supple, FROM, no masses, or JVD, No carotid bruits, No thyromegaly Lungs: Clear to auscultation, Clear to percussion, Normal respiratory effort, no accessory muscle use Cardiovascular: Heart regular in rate and rhythm, No murmurs, gallops, or rubs, No peripheral edema Abdominal: Soft, Nontender, no guarding, rebound or rigidity, Normoactive bowel sounds, No hepatomegaly, No splenomegaly, No palpable mass Skin: Normal temperature, tone, texture, turgor, no induration, No subcutaneous nodules, No rash, lesions, No ulcers Extremities: No digital cyanosis, No clubbing, Pedal pulses intact and symmetrical, Radial pulses intact and symmetrical, No calf tenderness Psychiatric: Alert and oriented to person, place and time, appropriate affect, intact judgement Neuro: Muscles Strength 5/5 in all 4 extremities, Sensation to light touch grossly present throughout, Cranial nerves II-XII grossly intact, no focal sensory deficits - Labs CBC & Chem 7: 01/27/22 10:45 01/27/22 10:45 Assessment and Plan Plan: Abdominal pain and constipation -Surgery consultation advising outpatient colonoscopy -Patient has history of colon cancer -History of prostate cancer, history of prostatectomy -PPI -Add senna, continue miralax. Patient has history of iliofemoral artery stent placement -Radiologist reported some changes around that area -Vascular surgery to reevaluate -Peripheral pulses are intact Mild anemia -Patient denies GI bleeding -Continue to monitor Hyponatremia -Possibly secondary to poor by mouth intake -Continue with IV fluid hydration normal saline -Follow in am Recurrent lumbar compression fractures -Pain control with [place] -Continue to follow up with orthopedics outpatient Chronic conditions COPD not on home oxygen continue with home medications A. fib, currently rate controlled continue with home medications and [place] Hypertension continue with home blood pressure meds CODE STATUS: Full code DVT prophylaxis: Jose Discussed with: Patient and RN Anticipated discharge date: tomorrow Anticipated discharge place: Home
--- NOTE | 2022-01-28 13:54 | P.GSCN ---
History of Present Illness History of present illness: 86-year-old gentleman known to me from the office. 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 Hernández few weeks ago. It patient's also had a prostate surgery in the past Neck examination neck is supple no bruit appreciated Chest is clear first and second sound normal Abdomen soft nontender there's a tenderness noted at the thoracic area on the right side of Vascular brachial radial pulses are present femorals are palpable bilateral Computed tomography scan was negative Most likely this gentleman has a pain from his compression fracture of the thoracic area patient had seen Dr. 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,ventricular PVCs,hiatal hernia,bowel irregularity,prostate CA,colon CA-Chemo 1996,bilcataract History of Any Multi-Drug Resistant Organisms: MRSA Year Discovered:: 06/22/17 MDRO Source:: Right Eye Past Surgical History: Bowel Resection, Heart Catheterization, Joint Replacement, Prostate Surgery Additional Past Surgical History / Comment(s): prostatectomy,left hip replaced x6,vanita cataracts, pre cancerous skin lesions removed, rt knee menisus sx,' "mass removed from rt carotid artery-benign" Past Anesthesia/Blood Transfusion Reactions: No Reported Reaction Past Psychological History: No Psychological Hx Reported Additional Psychological History / Comment(s): pt lives with in 2 story home-bedrooms on . 3 [address]. no pets. uses cane. no home care services. never served in but did [employer] work. is a retired teacher. Smoking Status: Never smoker Past Alcohol Use History: None Reported Additional Past Alcohol Use History / Comment(s): smoked at a young age for very short period of time Past Drug Use History: None Reported - Past Family History Mother Family Medical History: Congestive Heart Failure (CHF) Additional Family Medical History / Comment(s): age 76 Father Family Medical History: COPD Additional Family Medical History / Comment(s): at age 65- Medications and Allergies Home Medications Medication Instructions Recorded Confirmed Type Calcium Carbonate [Calcium] 600 mg PO DAILY 06/08/17 01/26/22 History Dronedarone [Multaq] 1,000 mg PO DAILY 06/08/17 01/27/22 History Ferrous Sulfate [Iron (65 MG 325 mg PO DAILY 06/08/17 01/26/22 History Elemental)] Glucosam/Edvin-Msm1/C/Lux/Bosw 1 tab PO DAILY 06/08/17 01/26/22 History [Glucosamine-Chondroitin Tablet] Metoprolol Tartrate [Lopressor] 25 mg PO DAILY 06/08/17 01/26/22 History Montelukast Sodium [Singulair] 10 mg PO DAILY 06/08/17 01/26/22 History Simvastatin [Zocor] 20 mg PO DAILY 06/08/17 01/26/22 History predniSONE 5 mg PO DAILY 06/08/17 01/26/22 History Budesonide/Formoterol Fumarate 2 puff INHALATION RT-BID 03/29/18 01/26/22 History [Symbicort 160-4.5 Mcg Inhaler] Apixaban [Eliquis] 2.5 mg PO BID #60 tablet 03/31/18 01/26/22 Rx Acetaminophen-Codeine 300-30mg 1 tab PO DAILY PRN 01/26/22 01/26/22 History [Tylenol w/codeine #3] Baclofen [Lioresal] 10 mg PO TID PRN 01/26/22 01/26/22 History Cholecalciferol [Vitamin D3 (125 125 mcg PO DAILY 01/26/22 01/26/22 History Mcg = 5000 Iu)] Diclofenac Sodium Gel [Voltaren 2 gm TOPICAL TID PRN 01/26/22 01/26/22 History Gel] Famotidine 20 mg PO BID 01/26/22 01/26/22 History HYDROcodone/APAP 5-325MG [[place] 1 tab PO BID PRN 01/26/22 01/26/22 History 5-325] Ipratropium/Albuterol Sulfate 1 puff INHALATION RT-QID 01/26/22 01/26/22 History [Combivent Respimat Inhaler] Multivitamins, Thera [Multivitamin 1 tab PO DAILY 01/26/22 01/26/22 History (formulary)] Allergies Allergy/AdvReac Type Severity Reaction Status Date / Time azithromycin Allergy tissue Verified 01/26/22 16:41 sloughing doxycycline [From Vibramycin] Allergy Tissue Verified 01/26/22 18:35 Sloughing in mouth moxifloxacin [From Avelox] Allergy red skin Verified 01/26/22 18:35 Penicillins Allergy Rash/Hives Verified 01/26/22 18:35 & Swelling lips Sulfa (Sulfonamide Allergy Rash/Hives Verified 01/26/22 16:41 Antibiotics) Surgical - Exam Vital Signs Temp Pulse Resp BP Pulse Ox 98.7 F 68 18 136/83 95 01/26/22 16:35 01/26/22 16:35 01/26/22 16:35 01/26/22 16:35 01/26/22 16:35 Results - Labs 01/27/22 10:45 01/27/22 10:45
[2022-01-28] MEDS: SENNOSIDES-DOCUSATE SODIUM 1 EACH TAB PO SCH ×2 (14:26→19:15)
[2022-01-28] MEDS ORDERED: MAGNESIUM CITRATE 296 ML BOTTLE PO ONE (17:11)
[2022-01-28] MEDS ORDERED: CALCIUM CARBONATE 500 MG CHEWABLE PO ONE (20:14)
[2022-01-29] MEDS: MORPHINE SULFATE 2 MG/ML SYRINGE IV PRN (01:36)
[2022-01-29] MEDS: SODIUM CHLORIDE 0.9% 1,000 ML IV SCH (03:01)
[2022-01-29 03:35] VITALS: TEMP 97.5
[2022-01-29] MEDS: SYMBICORT 160-4.5 MCG INHALER INHALATION SCH (07:27)
[2022-01-29] MEDS: polyethylene glycoL 3350 17 GM POWD.PACK PO SCH (08:00)
[2022-01-29] MEDS: DRONEDARONE 400 MG TAB PO SCH (08:00)
[2022-01-29] MEDS: METOPROLOL TARTRATE 25 MG TAB PO SCH (08:01)
[2022-01-29] MEDS: MONTELUKAST 10 MG TAB PO SCH (08:01)
[2022-01-29] MEDS: predniSONE 5 MG TAB PO SCH (08:01)
[2022-01-29] MEDS: APIXABAN 2.5 MG TABLET PO SCH (08:01)
[2022-01-29] MEDS: ATORVASTATIN 10 MG TAB PO SCH (08:02)
[2022-01-29] MEDS: SENNOSIDES-DOCUSATE SODIUM 1 EACH TAB PO SCH (08:02)
[2022-01-29] MEDS: FERROUS SULFATE 325 MG TAB PO SCH (08:02)
[2022-01-29] MEDS: HYDROcodone/APAP 5-325MG 1 EACH TAB PO PRN (08:02)
[2022-01-29 08:18] VITALS: BP 120/81; PULSE 89; RESP 16
--- NOTE | 2022-01-29 10:35 | P.PN ---
Subjective Progress Note Date: 01/29/22 Principal diagnosis: Abdominal pain Patient says his pain is improved. He did have multiple loose stools. Tolerating diet. Objective - Vital Signs Vital signs: Vital Signs Temp 97.5 F L 01/29/22 08:00 Pulse 89 01/29/22 08:00 Resp 16 01/29/22 08:00 BP 120/81 01/29/22 08:00 Pulse Ox 95 01/29/22 08:00 Intake & Output 01/28/22 01/29/22 01/29/22 18:59 06:59 18:59 Intake Total 300 Output Total 180 100 Balance 120 -100 Intake: Oral 300 Output: Urine 180 100 Other: Voiding Method Urinal Urinal # Voids 1 2 # Bowel Movements 3 - Exam Abdomen: Soft, nontender, nondistended - Labs CBC & Chem 7: 01/27/22 10:45 01/27/22 10:45 Assessment and Plan (1) Abdominal pain Narrative/Plan: Patient seems to be doing better at this time. Stools are moving well. Pain is improved. May discharge. We'll sign off at this point. Patient may follow-up in the office to discuss possible elective colonoscopy. Current Visit: Yes Status: Acute Code(s): R10.9 - UNSPECIFIED ABDOMINAL PAIN SNOMED Code(s): 04112479
[2022-01-29] MEDS: IPRATROPIUM-ALBUTEROL 3 ML NEB INHALATION SCH (11:12)
--- NOTE | 2022-01-29 11:22 | P.CNOR ---
History of Present Illness - [facility] Consult date: 01/29/22 Consult reason: fracture (Compression fractures) History of present illness: This is an 86-year-old gentleman with history of colon and prostate cancer. He was recently admitted with abdominal pain. He was seen in our office on 01/14/2022 for further evaluation of his T11 and L2 compression fractures. The T11 compression fracture is of undetermined age, the L2 impression fracture is chronic and stable. The patient states that he is having continued pain. He has been wearing the LSO brace at home with minimal relief. We're consult in for follow-up evaluation of his compression fractures. 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,ventricular PVCs,hiatal hernia,bowel irregularity,prostate CA,colon CA-Chemo 1996,bilcataract History of Any Multi-Drug Resistant Organisms: MRSA Year Discovered:: 06/22/17 MDRO Source:: Right Eye Past Surgical History: Bowel Resection, Heart Catheterization, Joint Replacement, Prostate Surgery Additional Past Surgical History / Comment(s): prostatectomy,left hip replaced x6,vanita cataracts, pre cancerous skin lesions removed, rt knee menisus sx,' "mass removed from rt carotid artery-benign" Past Anesthesia/Blood Transfusion Reactions: No Reported Reaction Past Psychological History: No Psychological Hx Reported Additional Psychological History / Comment(s): pt lives with in 2 story home-bedrooms on . [address]. no pets. uses cane. no home care services. 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 Smoking Status: Never smoker Past Alcohol Use History: None Reported Additional Past Alcohol Use History / Comment(s): smoked at a young age for very short period of time Past Drug Use History: None Reported - Past Family History Mother Family Medical History: Congestive Heart Failure (CHF) Additional Family Medical History / Comment(s): age 76 Father Family Medical History: COPD Additional Family Medical History / Comment(s): at age 65- Medications and Allergies Home Medications Medication Instructions Recorded Confirmed Type Calcium Carbonate [Calcium] 600 mg PO DAILY 06/08/17 01/26/22 History Dronedarone [Multaq] 1,000 mg PO DAILY 06/08/17 01/27/22 History Ferrous Sulfate [Iron (65 MG 325 mg PO DAILY 06/08/17 01/26/22 History Elemental)] Glucosam/Edvin-Msm1/C/Lux/Bosw 1 tab PO DAILY 06/08/17 01/26/22 History [Glucosamine-Chondroitin Tablet] Metoprolol Tartrate [Lopressor] 25 mg PO DAILY 06/08/17 01/26/22 History Montelukast Sodium [Singulair] 10 mg PO DAILY 06/08/17 01/26/22 History Simvastatin [Zocor] 20 mg PO DAILY 06/08/17 01/26/22 History predniSONE 5 mg PO DAILY 06/08/17 01/26/22 History Budesonide/Formoterol Fumarate 2 puff INHALATION RT-BID 03/29/18 01/26/22 History [Symbicort 160-4.5 Mcg Inhaler] Apixaban [Eliquis] 2.5 mg PO BID #60 tablet 03/31/18 01/26/22 Rx Acetaminophen-Codeine 300-30mg 1 tab PO DAILY PRN 01/26/22 01/26/22 History [Tylenol w/codeine #3] Baclofen [Lioresal] 10 mg PO TID PRN 01/26/22 01/26/22 History Cholecalciferol [Vitamin D3 (125 125 mcg PO DAILY 01/26/22 01/26/22 History Mcg = 5000 Iu)] Diclofenac Sodium Gel [Voltaren 2 gm TOPICAL TID PRN 01/26/22 01/26/22 History Gel] Famotidine 20 mg PO BID 01/26/22 01/26/22 History HYDROcodone/APAP 5-325MG [[place] 1 tab PO BID PRN 01/26/22 01/26/22 History 5-325] Ipratropium/Albuterol Sulfate 1 puff INHALATION RT-QID 01/26/22 01/26/22 History [Combivent Respimat Inhaler] Multivitamins, Thera [Multivitamin 1 tab PO DAILY 01/26/22 01/26/22 History (formulary)] Allergies Allergy/AdvReac Type Severity Reaction Status Date / Time azithromycin Allergy tissue Verified 01/26/22 16:41 sloughing doxycycline [From Vibramycin] Allergy Tissue Verified 01/26/22 18:35 Sloughing in mouth moxifloxacin [From Avelox] Allergy red skin Verified 01/26/22 18:35 Penicillins Allergy Rash/Hives Verified 01/26/22 18:35 & Swelling lips Sulfa (Sulfonamide Allergy Rash/Hives Verified 01/26/22 16:41 Antibiotics) Physical Examination This is a pleasant 86-year-old gentleman in no acute distress. He is alert and oriented 3. Exam of the head and neck is unremarkable. He has fairly good cervical spine motion without difficulty or pain. Exam of the upper extremities is unremarkable. He has fairly good shoulder, elbow, wrist and finger motion bilaterally. Neurovascular status to the upper extremities is intact. Exam of the thoracic and lumbar spine reveal tenderness with palpation about the lower thoracic and upper lumbar spine. He has some tenderness to the right sided paraspinal musculature. Exam of the abdomen reveals right lower and upper quadrant tenderness with palpation. No guarding or rebound tenderness noted. Exam of the lower extremities reveals no obvious deformity. He is able to lift each leg off the bed independently. He has fairly good strength with dorsiflexion of the great toe against resistance bilaterally. Neurovascular status to the lower extremities is intact. Results Computed tomography scan of the abdomen and pelvis is reviewed which does show compression deformities to T11 and L2. No other bony abnormalities are noted on the CT. - Labs Labs: H & H 01/26/22 01/27/22 Range/Units 17:53 10:45 Hgb 12.6 L 12.0 L (13.0-17.5) gm/dL Hct 37.4 L 37.3 L (39.0-53.0) % Coagulation 01/26/22 Range/Units 17:53 INR 1.1 (<1.2) Result Diagrams: 01/27/22 10:45 01/27/22 10:45 Assessment and Plan (1) Compression fracture of T11 vertebra Current Visit: Yes Status: Acute Code(s): S22.080A - WEDGE COMPRESSION FRACTURE OF T11-T12 VERTEBRA, INIT SNOMED Code(s): 270379176 (2) Compression fracture of L2 Current Visit: Yes Status: Acute Code(s): S32.020A - WEDGE COMPRESSION FRACTURE OF SECOND LUMBAR VERTEBRA, INIT SNOMED Code(s): 22681038225378603 (3) Abdominal pain Current Visit: Yes Status: Acute Code(s): R10.9 - UNSPECIFIED ABDOMINAL PAIN SNOMED Code(s): 25683220 (4) Chronic low back pain Current Visit: Yes Status: Acute Code(s): M54.50 - LOW BACK PAIN, UNSPECIFIED; G89.29 - OTHER CHRONIC PAIN SNOMED Code(s): 448564990 Plan: The clinical and radiographic findings are discussed with the patient. He is being discharged to home today. He is advised to continue with the current LSO brace. He is to follow-up this week with Dr. Hernández is scheduled. Internal medicine will be discharging him on a stronger pain medication.
--- NOTE | 2022-01-29 12:15 | P.DS ---
Providers Date of admission: 01/28/22 12:10 Expected date of discharge: 01/29/22 Attending physician: Colt Saab MD Consults: 01/26/22 20:21 Consult Physician Routine Consulting Provider: Sanju Cook Consult Reason/Comments: Abdominal pain Do you want consulting provider notified?: Yes 01/27/22 07:21 Consult Physician Routine Consulting Provider: Zhang Felix Consult Reason/Comments: evaluate for colonoscopy Do you want consulting provider notified?: Yes 01/28/22 14:01 Consult Physician Routine Consulting Provider: Piotr Hernández Consult Reason/Comments: thoracic compression fracture Do you want consulting provider notified?: Yes Primary care physician: [facility] Course: 86-year-old male with hx of CVA, COPD, colon cancer status post resection in the , prostate cancer and atrial fibrillation on Eliquis who presented to the emergency department with complaints of lower abdominal pain for more than one month duration. He states he also has chronic low back pain and has a history of compression fractures, currently follow-up Dr. Hernández and office, was prescribed brace which he is not sure how to wear.. He states the pain is intermittent and can be severe at times, which he states mostly occurs at night. He states that once he gets into a good position and then the pain subsides. He states he does have history of constipation since his prostate surgery and was seen at [facility] about 2 weeks ago for constipation of 5 days. He was given a computed tomography scan and workup and told everything was normal. He was given 2 enemas and had a good bowel movement was discharged home. He states since then he has been using fleets enema as needed and has started MiraLAX and has been having more regulated bowel movements. He denies any blood in his stool or black stool. His last colonoscopy was 5 years ago with which the patient states he was told was good and he did not need another colonoscopy. He had a CT of the abdomen and pelvis in the emergency department that showed no definite acute abnormality. Patient was admitted, was seen by general surgery who ordered a abdominal ultrasound which again did not find any acute process. Colonoscopy was not deemed to be needed by surgery. Patient was constipated during the admission but eventually was able to have a big bowel movement last night. The abdominal pain did not subside after the bowel movement. Abdominal pain was considered likely to be referred from the compression fractures as the bowel movement did not relieve him. Patient was seen by orthopedic who did not think that he needed any acute surgical intervention. Patient was prescribed a hospital bed upon discharge. He was told to follow-up with Dr. Hernández in the office. He was also told to wear the brace as much as he can. Time for discharge 35 minutes. Patient Condition at Discharge: Serious Plan - Discharge Summary Discharge Rx Participant: No New Discharge Prescriptions: New oxyCODONE HCL/ACETAMINOPHEN [Percocet 10-325 mg] 1 tab PO Q6HR PRN 6 Days #20 tab PRN Reason: Pain Continue Glucosam/Edvin-Msm1/C/Lux/Bosw [Glucosamine-Chondroitin Tablet] 1 tab PO DAILY Ferrous Sulfate [Iron (65 MG Elemental)] 325 mg PO DAILY Calcium Carbonate [Calcium] 600 mg PO DAILY Metoprolol Tartrate [Lopressor] 25 mg PO DAILY predniSONE 5 mg PO DAILY Montelukast Sodium [Singulair] 10 mg PO DAILY Simvastatin [Zocor] 20 mg PO DAILY Dronedarone [Multaq] 1,000 mg PO DAILY Budesonide/Formoterol Fumarate [Symbicort 160-4.5 Mcg Inhaler] 2 puff INHALATION RT-BID Apixaban [Eliquis] 2.5 mg PO BID #60 tablet Ipratropium/Albuterol Sulfate [Combivent Respimat Inhaler] 1 puff INHALATION RT-QID Cholecalciferol [Vitamin D3 (125 Mcg = 5000 Iu)] 125 mcg PO DAILY Famotidine 20 mg PO BID Diclofenac Sodium Gel [Voltaren Gel] 2 gm TOPICAL TID PRN PRN Reason: Pain Baclofen [Lioresal] 10 mg PO TID PRN PRN Reason: Muscle Spasm Acetaminophen-Codeine 300-30mg [Tylenol w/codeine #3] 1 tab PO DAILY PRN PRN Reason: Pain Multivitamins, Thera [Multivitamin (formulary)] 1 tab PO DAILY Discontinued HYDROcodone/APAP 5-325MG [[place] 5-325] 1 tab PO BID PRN PRN Reason: Pain Discharge Medication List Calcium Carbonate [Calcium] 600 mg PO DAILY 06/08/17 [History] Dronedarone [Multaq] 1,000 mg PO DAILY 06/08/17 [History] Ferrous Sulfate [Iron (65 MG Elemental)] 325 mg PO DAILY 06/08/17 [History] Glucosam/Edvin-Msm1/C/Lux/Bosw [Glucosamine-Chondroitin Tablet] 1 tab PO DAILY 06/08/17 [History] Metoprolol Tartrate [Lopressor] 25 mg PO DAILY 06/08/17 [History] Montelukast Sodium [Singulair] 10 mg PO DAILY 06/08/17 [History] Simvastatin [Zocor] 20 mg PO DAILY 06/08/17 [History] predniSONE 5 mg PO DAILY 06/08/17 [History] Budesonide/Formoterol Fumarate [Symbicort 160-4.5 Mcg Inhaler] 2 puff INHALATION RT-BID 03/29/18 [History] Apixaban [Eliquis] 2.5 mg PO BID #60 tablet 03/31/18 [Rx] Acetaminophen-Codeine 300-30mg [Tylenol w/codeine #3] 1 tab PO DAILY PRN 01/26/22 [History] Baclofen [Lioresal] 10 mg PO TID PRN 01/26/22 [History] Cholecalciferol [Vitamin D3 (125 Mcg = 5000 Iu)] 125 mcg PO DAILY 01/26/22 [Hist ory] Diclofenac Sodium Gel [Voltaren Gel] 2 gm TOPICAL TID PRN 01/26/22 [History] Famotidine 20 mg PO BID 01/26/22 [History] Ipratropium/Albuterol Sulfate [Combivent Respimat Inhaler] 1 puff INHALATION RT- QID 01/26/22 [History] Multivitamins, Thera [Multivitamin (formulary)] 1 tab PO DAILY 01/26/22 [History] oxyCODONE HCL/ACETAMINOPHEN [Percocet 10-325 mg] 1 tab PO Q6HR PRN 6 Days #20 tab 01/29/22 [Rx] Follow up Appointment(s)/Referral(s): [facility] [NON-STAFF] - As Needed (Hospital bed ) Victorino Morrissey [Primary Care Provider] - 1-2 days
== END 2022-01-29 13:40 | disposition home or self-care (01) ==
LOC: EC 16:33 → 6NMEDSUR 20:33 → OBSVTOIN 01-28 12:10 → INTOOBSV 01-28 12:10 → UNDODISIN 01-29 13:40
PROVIDERS: ADMIT Internal Medicine; ATTEND Internal Medicine
DX: R10.31 Right lower quadrant pain (principal); E87.1 Hypo-osmolality and hyponatremia; K59.09 Other constipation; I25.10 Atherosclerotic heart disease of native coronary artery without angina pectoris; I48.91 Unspecified atrial fibrillation; J44.9 Chronic obstructive pulmonary disease, unspecified; M48.56XD Collapsed vertebra, not elsewhere classified, lumbar region, subsequent encounter for fracture with routine healing; M48.54XD Collapsed vertebra, not elsewhere classified, thoracic region, subsequent encounter for fracture with routine healing; G89.29 Other chronic pain; M54.50 Low back pain, unspecified; K44.9 Diaphragmatic hernia without obstruction or gangrene; D64.9 Anemia, unspecified; I10 Essential (primary) hypertension; Z79.01 Long term (current) use of anticoagulants; Z79.51 Long term (current) use of inhaled steroids; Z79.52 Long term (current) use of systemic steroids; Z79.899 Other long term (current) drug therapy; Z88.0 Allergy status to penicillin; Z88.1 Allergy status to other antibiotic agents; Z88.2 Allergy status to sulfonamides; Z85.038 Personal history of other malignant neoplasm of large intestine; Z86.73 Personal history of transient ischemic attack (TIA), and cerebral infarction without residual deficits; Z95.828 Presence of other vascular implants and grafts; Z86.14 Personal history of Methicillin resistant Staphylococcus aureus infection; Z98.41 Cataract extraction status, right eye; Z98.42 Cataract extraction status, left eye; Z92.3 Personal history of irradiation; Z92.21 Personal history of antineoplastic chemotherapy; Z85.46 Personal history of malignant neoplasm of prostate; Z90.49 Acquired absence of other specified parts of digestive tract; Z96.642 Presence of left artificial hip joint; Z90.79 Acquired absence of other genital organ(s); Z87.891 Personal history of nicotine dependence; Z82.5 Family history of asthma and other chronic lower respiratory diseases; Z82.49 Family history of ischemic heart disease and other diseases of the circulatory system
CPT/HCPCS: 96376 ×3; 96374; 96375; 99285; 36415; 94640 ×5; 80053 ×2; 83605; 83690; 83735; 85025; 85027; 85610; 85730; 81003; 76700; 74177; G0378 ×4; J2405; J2270 ×4; J7512 ×3; Q9967

== ENCOUNTER → 2022-02-18 | Outpatient (CLI) | payer MEDICARE ==
[2022-02-18 13:53] LABS: INR 1.1 (<1.2); Partial Thromboplastin Time 25.2 sec (22.0-30.0); Prothrombin Time 11.9 sec (9.0-12.0)
[2022-02-18 14:07] LABS: Amorphous Sediment,Urine Rare /hpf; Appearance,Urine Cloudy (Clear); Bacteria,Urine Rare /hpf; Bilirubin,Urine Negative (Negative); Blood,Urine Negative (Negative); Color,Urine Yellow; Glucose,Urine (UA) Negative (Negative); Hyaline Casts,Urine 10 /lpf (0-2); Ketones,Urine Negative (Negative); Leukocyte Esterase,Urine Small (Negative); Mucus,Urine Rare /hpf; Nitrite,Urine Negative (Negative); Protein,Urine Negative (Negative); RBC,Urine 7 /hpf (0-5); Specific Gravity,Urine 1.014 (1.001-1.035); Squamous Epithelial Cell,Urine <1 /hpf (0-4); Urobilinogen,Urine <2.0 mg/dL (<2.0); WBC,Urine 40 /hpf (0-5)
[2022-02-18 18:00] LABS: African American GFR (CKD) 76.4 (60.0-200.0); Anion Gap 12.2 mmol/L (10.00-18.00); BUN/Creat Ratio 13.59 Ratio (12.00-20.00); Calcium 9.4 mg/dL (8.7-10.3); Carbon Dioxide 26.2 mmol/L (20.0-27.5); Non-African American GFR(CKD) 65.9 (60.0-200.0); Potassium 4.5 mmol/L (3.5-5.5)
[2022-02-18 18:16] LABS: Basophils # (A) 0.04 X 10*3/uL (0.00-0.10); Basophils % (A) 0.5 %; Eosinophils # (A) 0.07 X 10*3/uL (0.04-0.35); Eosinophils % (A) 0.9 %; HCT 39.3 % (39.6-50.0); HGB 12.5 g/dL (13.0-17.0); Immature Grans, Automated 0.6 %; Lymphocytes # (A) 0.51 X 10*3/uL (0.90-5.00); Lymphocytes % (A) 6.3 %; MCH 31.9 pg (27.0-32.0); MCHC 31.8 g/dL (32.0-37.0); MCV 100.3 fL (80.0-97.0); Mean Platelet Volume 10.1 fL (9.5-12.2); Monocytes % (A) 18.5 %; NRBC Per 100 WBC 0 /100 WBCS (0.0-0.0); Neutrophils # (A) 5.95 X 10*3/uL (1.80-7.70); Neutrophils % (A) 73.2 %; Platelet Count 237 X 10*3/uL (140-440); RBC 3.92 X 10*6/uL (4.40-5.60); RDW 13.1 % (11.5-14.5); WBC 8.12 X 10*3/uL (4.50-10.00)
== END | disposition home or self-care (01) ==
LOC: LABPAT 11:22
PROVIDERS: ATTEND Orthopaedic Surgery Orthopaedic Surgery of the Spine
DX: Z01.812 Encounter for preprocedural laboratory examination (principal); S22.080A Wedge compression fracture of T11-T12 vertebra, initial encounter for closed fracture; X58.XXXA Exposure to other specified factors, initial encounter
CPT/HCPCS: 80048; 81001; 85025; 85610; 85730; 93005

== ENCOUNTER 2022-03-16 10:26 | Day surgery (SDC) | payer MEDICARE ==
[2022-03-14 17:10] VITALS: BMI 19.8
[~2022-03-16 10:26] MED LIST changes: -DEXAMETHASONE SOD PHOSPHATE 10 MG/ML 1 ML VIAL IV ONE; +DEXAMETHASONE SOD PHOSPHATE 4 MG/ML 1 ML VIAL IV ONE; +HYDROmorphone 0.5 MG/0.5 ML SYRINGE IVP PRN; -HYDROmorphone 1 MG/ML 1 ML SYRINGE IVP PRN; +LIDOCAINE 1% (10MG/ML) FOR IV START INTRADERMA PRN; -LIDOCAINE 1% 20 ML VIAL (10MG/ML) FOR IV START INTRADERMA PRN; -MIDAZOLAM 2 MG/2 ML VIAL IV PRN; -MOXIFLOXACIN HCL 0.5% DROPS 3 ML BTL OP ONE; -SCOPOLAMINE 1.5MG/72HR PATCH TRANSDERM ONE; -TETRACAINE 0.5% OPHTH (PF) DROPS 4 ML BTL OP ONE; -TIMOLOL 0.5% OPHTH SOLN (PF) 0.2 ML DROPERETTE OP ONE; +ceFAZolin 1,000 MG in SODIUM CHLORIDE 0.9% IRRIGATIO 1,000 ML IRRIGATION PRN
[2022-03-16 11:19] LABS: Glucose,Whole Blood 113 mg/dL (75-99)
[2022-03-16] MEDS ORDERED: LIDOCAINE 2% INJ 20 MG/ML (2 ML VIAL) ONE (11:44)
[2022-03-16] MEDS ORDERED: PHENYLEPHRINE-0.9% NACL SYG 1,000 MCG/10 ML SYRINGE ONE (11:44)
[2022-03-16] MEDS ORDERED: SUCCINYLCHOLINE CHLORIDE 100 MG/5 ML SYR IV ONE (11:44)
[2022-03-16] MEDS ORDERED: ROCURONIUM 10 MG/ML (5 ML VIAL) IV ONE (11:44)
[2022-03-16] MEDS ORDERED: PROPOFOL 10 MG/ML 20 ML VIAL IV ONE (11:44)
[2022-03-16] MEDS ORDERED: fentaNYL (PF) 50 MCG/ML 2 ML AMP ONE (11:44)
[2022-03-16] MEDS ORDERED: IOPAMIDOL M200 10 ML VIAL MISCELLANE ONE (11:47)
[2022-03-16] MEDS ORDERED: LIDOCAINE 0.5%-EPI 1:200,000 50 ML VIAL SQ ONE (11:47)
[2022-03-16] MEDS ORDERED: CYCLOBENZAPRINE 10 MG TAB PO PRN (12:40)
[2022-03-16] MEDS ORDERED: HYDROmorphone 0.5 MG/0.5 ML SYRINGE IVP PRN (12:40)
[2022-03-16] MEDS ORDERED: HYDROcodone/APAP 5-325MG 1 EACH TAB PO PRN (12:40)
[2022-03-16] MEDS ORDERED: ONDANSETRON 4 MG/2 ML VIAL IVP PRN (12:40)
[2022-03-16] MEDS ORDERED: BENZOCAINE/MENTHOL LOZENG 1 EACH LOZENGE MUCOUS MEM PRN (12:40)
[2022-03-16] MEDS ORDERED: DICLOFENAC SODIUM GEL 100 GM TUBE TOPICAL PRN (12:41)
[2022-03-16] MEDS ORDERED: HYDROcodone/APAP 7.5-325MG 1 EACH TAB PO PRN (12:41)
[2022-03-16] MEDS ORDERED: IPRATROPIUM-ALBUTEROL 3 ML NEB INHALATION PRN (12:41)
[2022-03-16] MEDS ORDERED: SODIUM CHLORIDE 0.9% 1,000 ML IV SCH (12:45)
[2022-03-16 12:50] VITALS: TEMP 97
--- NOTE | 2022-03-16 12:51 | P.OP ---
Date of Procedure: 03/16/22 Preoperative Diagnosis: T11 osteoporotic compression fracture, progressive compression deformity at T11, failed conservative treatment Postoperative Diagnosis: Same Anesthesia: GETA Pathology: other (T11 biopsy to pathology) Condition: stable Disposition: PACU Description of Procedure: BRIEF OPERATIVE NOTE Preoperative Diagnosis: T11 osteoporotic compression fracture, progressive compression deformity at T11, failed conservative treatment Postoperative Diagnosis: Same Procedure: Kyphoplasty of T11 Vertebral body biopsy of T11 Use of biplanar fluoroscopic guidance Surgeon: Dr. Hernández Performance Architect: Charli Whitfield is present throughout the entire the case persistence during positioning, dissection, exposure, visualization, and all crucial elements of the case as well as closure. Anesthesia: General anesthesia Estimated blood loss: Less than 10 mL Specimen: Vertebral body biopsy of T11 sent to pathology in formalin Complications: None apparent Components implanted: Bone cement approximately 6 mL Disposition: To recovery room in good stable condition. OPERATIVE INDICATIONS The patient has been having issues in their back ever since sustaining an injury. He has sustained a fall at home and was having unrelenting pain at his back since that time. We tented conservative treatment bracing however the patient continued to have severe pain and was having severe debility unable to get around at home and is using a wheelchair where he had not been using a wheelchair prior to his injury. His found have a compression deformity at L2 and at T11. We felt that that L2 compression fracture was old and that the T11 fracture was new from the injury. His imaging showed progressive deformity at T11 fracture. He continues to have pain at the midline and significant debility. His pain correlated very well with his imaging findings and we felt that he could have good benefit with surgical intervention with vertebral cement augmentation via kyphoplasty. He was initially declined by his insurance company despite his willingness and our evaluation and after multiple discussions with insurance company he was ultimately approved to proceed with the surgery. The patient has been through conservative treatment. They attempted conservative care with bracing however they're not having any benefit despite brace use. They continue to have significant pain and debility due to their fracture. We discussed various treatment options including surgery, and the patient wishes to proceed with surgery We discussed the risk, patient's alternatives and benefits of surgery including but not limited to, risk of bleeding risk of infection, risk of need for further surgery, risk of decreased, loss of motion, loss of function, cement extravasation, nerve damage, paralysis, heart attack, blindness and . OPERATIVE SUMMARY After discussing all the risks, patient alternatives and benefits at length, the patient elected to proceed with surgical intervention, signed informed consent, and presented for their procedure. The patient was seen and examined in the preoperative holding area and the surgical site was marked. The patient was given antibiotics and brought to the operating room. The patient was sedated and intubated by anesthesia in standard fashion. The patient was positioned on to the operating room table in a prone position on the appropriate well-padded and well molded bilateral chest rolls. We were careful to pad any bony prominences and pressure points. We were careful to maintain the patient's cervical spine and good neutral alignment and position throughout. We used 2 C-arm machines to establish biplanar fluoroscopic guidance in AP and lateral positions. We were able to localize the fractures appropriately. The patient was prepped and draped in a normal standard fashion. An appropriate timeout and keystone protocol performed. We were able to proceed with the surgery. The local wound area was infiltrated with local anesthetic. An incision was made over the lateral aspect of the pedicle over the appropriate levels with a small 2 mm stab incision. Intraoperative fluoroscopy was taken which showed a marker at the appropriate level. With the appropriate level positively confirmed, I was able to position a sharp trocar over the lateral aspect of the pedicle. As able to advance the trocar into the pedicle and into the posterior aspect of vertebral body being careful to avoid penetration cephalad caudad or medially. The trocar was placed appropriately into the posterior aspect of vertebral body at the appropriate levels. This was confirmed with C-arm guidance. With the trocar intact I was then able to take a bone biopsy with a biopsy punch or a bony drill. The biopsy specimen was passed off to be sent to pathology in formalin. I was then able to place the kyphoplasty balloon within the vertebral body at T11. The position was checked on C-arm. I was able to inflate the balloon under low pressure and visualization with C-arm. The balloon was well enclosed within the vertebral body. The cement was prepared. With the cement at appropriate working condition the balloons were deflated and removed. With excellent position within the vertebral body. I was able to place bony cement with trocar with the cement delivery device under low pressure. It had good fill within the vertebral body. With good fill within the vertebral body to approximately 6 mL of bone cement. There is no evidence of any extravasation of the cement posteriorly toward the canal. The cement was well contained at the appropriate levels. The cement was allowed to cure appropriately. The trochars removed and final images were taken on C-arm. This showed the cement at the appropriate levels of T11. We were able to proceed with closure. The wound was cleaned and dried and dressed with the appropriate dressing. The drapes were broken down. The patient was gently rolled back onto their hospital bed being careful to maintain their cervical spine and good neutral alignment and position. They were woken up by anesthesia, extubated, and brought to the recovery room in good stable condition. The patient will be admitted to the hospital for observation and for appropriate postoperative care, medical management and monitoring. We will continue to follow them closely about the postoperative course.
--- NOTE | 2022-03-16 12:59 | FL ---
EXAMINATION TYPE: FL guidance operating room, XR thoracic spine 2V DATE OF EXAM: 03/16/2022 CLINICAL HISTORY: Mid back pain. TECHNIQUE: Fluoroscopy. Intraoperative 2 views thoracic spine. COMPARISON: CT abdomen and pelvis January 26, 2022. FINDINGS: Fluoroscopic guidance was provided during kyphoplasty procedure performed by Dr. Hernández. A total of 49 seconds of fluoroscopic time was utilized during the procedure and 6 spot images was acq uired. Images obtained show cement injection into the moderate sized compression fracture at T11 leve l. IMPRESSION: As Above.
[2022-03-16 13:01] VITALS: RESP 16
[2022-03-16] MEDS ORDERED: HYDROcodone/APAP 7.5-325MG 1 EACH TAB PO ONE (14:00)
[2022-03-16 14:09] VITALS: BP 137/72; PULSE 68
[2022-03-16] MEDS ORDERED: DRONEDARONE 400 MG TAB PO SCH ×2 (17:30→22:00)
[2022-03-16] MEDS ORDERED: SYMBICORT 160-4.5 MCG INHALER INHALATION SCH (20:00)
[2022-03-16] MEDS ORDERED: METOPROLOL TARTRATE 25 MG TAB PO SCH (21:00)
[2022-03-16] MEDS ORDERED: MONTELUKAST 10 MG TAB PO SCH (21:00)
[2022-03-16] MEDS ORDERED: ATORVASTATIN 10 MG TAB PO SCH (21:00)
[2022-03-17] MEDS ORDERED: APIXABAN 2.5 MG TABLET PO SCH (09:00)
[2022-03-17] MEDS ORDERED: CHOLECALCIFEROL 125 MCG (5000 IU) TABLET PO SCH (09:00)
[2022-03-17] MEDS ORDERED: CALCIUM CARB-VIT D 500 MG-5 MCG TAB PO SCH (09:00)
[2022-03-17] MEDS ORDERED: NON FORMULARY DRUG (Glucosam/Chon-Msm1/C/Mang/Bosw [Glucosamine-Chondroitin Tablet] 1 EACH PO SCH (09:00)
[2022-03-17] MEDS ORDERED: FAMOTIDINE 20 MG TAB PO SCH (09:00)
[2022-03-17] MEDS ORDERED: FERROUS SULFATE 325 MG TAB PO SCH (09:00)
[2022-03-17] MEDS ORDERED: MULTIVITAMINS, THERA 1 EACH TAB PO SCH (09:00)
== END 2022-03-16 14:48 | disposition home or self-care (01) ==
LOC: OR 10:26
PROVIDERS: ATTEND Orthopaedic Surgery Orthopaedic Surgery of the Spine
DX: M80.88XA Other osteoporosis with current pathological fracture, vertebra(e), initial encounter for fracture (principal); W19.XXXA Unspecified fall, initial encounter; S32.020D Wedge compression fracture of second lumbar vertebra, subsequent encounter for fracture with routine healing; M41.86 Other forms of scoliosis, lumbar region; M48.062 Spinal stenosis, lumbar region with neurogenic claudication; J43.9 Emphysema, unspecified; I51.9 Heart disease, unspecified; Z85.46 Personal history of malignant neoplasm of prostate; Z92.21 Personal history of antineoplastic chemotherapy; Z85.038 Personal history of other malignant neoplasm of large intestine; Z96.642 Presence of left artificial hip joint; M25.78 Osteophyte, vertebrae; M47.26 Other spondylosis with radiculopathy, lumbar region; Z85.828 Personal history of other malignant neoplasm of skin; R00.2 Palpitations; J98.4 Other disorders of lung; Z98.890 Other specified postprocedural states; I25.10 Atherosclerotic heart disease of native coronary artery without angina pectoris; I48.91 Unspecified atrial fibrillation; I25.2 Old myocardial infarction; I49.3 Ventricular premature depolarization; Z86.73 Personal history of transient ischemic attack (TIA), and cerebral infarction without residual deficits; Z79.01 Long term (current) use of anticoagulants; Z79.891 Long term (current) use of opiate analgesic; Z79.82 Long term (current) use of aspirin; Z79.51 Long term (current) use of inhaled steroids; Z79.52 Long term (current) use of systemic steroids; Z79.899 Other long term (current) drug therapy; Z88.1 Allergy status to other antibiotic agents; Z88.0 Allergy status to penicillin; Z88.2 Allergy status to sulfonamides
CPT/HCPCS: 88342; 88307; 88311; 72070; 22513; 20250; C1713; J0690; J2405; J3010; J2370; J0330; J2704; Q9966; J2001

== ENCOUNTER → 2022-04-14 | Day surgery (SDC) | payer MEDICARE ==
[2022-04-13 08:30] VITALS: BMI 19.8
[~2022-04-14] MED LIST changes: -DEXAMETHASONE SOD PHOSPHATE 4 MG/ML 1 ML VIAL IV ONE; -HYDROmorphone 0.5 MG/0.5 ML SYRINGE IVP PRN; +LACTATED RINGERS 1,000 ML IV ONE; -ONDANSETRON 4 MG/2 ML VIAL IVP ONE; +PHENYLEPHRINE-0.9% NACL SYG 1,000 MCG/10 ML SYRINGE ONE; +PROPOFOL 10 MG/ML 20 ML VIAL IV ONE; -ceFAZolin 1,000 MG in SODIUM CHLORIDE 0.9% IRRIGATIO 1,000 ML IRRIGATION PRN
[2022-04-14 09:49] VITALS: BP 148/82; PULSE 88; RESP 16; TEMP 97.4
--- NOTE | 2022-04-14 10:08 | P.GSHP ---
History of Present Illness H&P Date: 04/14/22 Chief Complaint: Change in bowel habits, constipation, GERD This 86-year-old male been today for EGD colonoscopy. He is issues with GERD constipation and change in bowel habits. 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 surgery for fx vertebra 02/2022 Past Anesthesia/Blood Transfusion Reactions: No Reported Reaction Smoking Status: Former smoker - Past Family History Mother Family Medical History: No Reported History Additional Family Medical History / Comment(s): . Father Family Medical History: COPD Additional Family Medical History / Comment(s): at age 65- Medications and Allergies Home Medications Medication Instructions Recorded Confirmed Type Calcium Carbonate [Calcium] 600 mg PO DAILY 06/08/17 04/14/22 History Ferrous Sulfate [Iron (65 MG 325 mg PO DAILY 06/08/17 04/13/22 History Elemental)] Glucosam/Edvin-Msm1/C/Lux/Bosw 1 tab PO DAILY 06/08/17 04/14/22 History [Glucosamine-Chondroitin Tablet] Montelukast Sodium [Singulair] 10 mg PO HS 06/08/17 04/14/22 History predniSONE 5 mg PO DAILY 06/08/17 04/14/22 History Budesonide/Formoterol Fumarate 2 puff INHALATION RT-BID 03/29/18 04/14/22 History [Symbicort 160-4.5 Mcg Inhaler] Apixaban [Eliquis] 2.5 mg PO BID #60 tablet 03/31/18 04/14/22 Rx Cholecalciferol [Vitamin D3 (125 125 mcg PO DAILY 01/26/22 04/14/22 History Mcg = 5000 Iu)] Diclofenac Sodium Gel [Voltaren 2 gm TOPICAL TID PRN 01/26/22 04/14/22 History Gel] Famotidine 20 mg PO QAM 01/26/22 04/14/22 History Ipratropium/Albuterol Sulfate 1 puff INHALATION RT-QID PRN 01/26/22 04/14/22 History [Combivent Respimat Inhaler] Multivitamins, Thera [Multivitamin 1 tab PO DAILY 01/26/22 04/13/22 History (formulary)] Dronedarone HCl [Multaq] 400 mg PO BID 02/18/22 04/14/22 History Hydrocodone/Acetaminophen 1 each PO Q8HR PRN 02/18/22 04/14/22 History [Hydrocodone/Acetaminophen 7.5-325] Metoprolol Succinate [Toprol XL] 25 mg PO DAILY 04/13/22 04/14/22 History Allergies Allergy/AdvReac Type Severity Reaction Status Date / Time azithromycin Allergy tissue Verified 04/13/22 08:13 sloughing doxycycline [From Vibramycin] Allergy Tissue Verified 04/13/22 08:13 Sloughing in mouth moxifloxacin [From Avelox] Allergy red skin Verified 04/13/22 08:13 Penicillins Allergy Rash/Hives Verified 04/13/22 08:13 & Swelling lips Sulfa (Sulfonamide Allergy Rash/Hives Verified 04/13/22 08:13 Antibiotics) Surgical - Exam Vital Signs Temp Pulse Resp BP Pulse Ox 97.4 F L 88 16 148/82 96 04/14/22 09:48 04/14/22 09:48 04/14/22 09:48 04/14/22 09:48 04/14/22 09:48 - General well developed, well nourished, no distress - Eyes PERRL - ENT normal pinna - Neck no masses - Respiratory normal expansion - Cardiovascular Rhythm: regular - Abdomen Abdomen: soft, non tender Assessment and Plan Assessment: GERD, change in pounds, constipation. We'll perform EGD and colonoscopy.
[2022-04-14 10:09] LABS: Glucose,Whole Blood 90 mg/dL (75-99)
--- NOTE | 2022-04-14 10:32 | P.OP ---
Date of Procedure: 04/14/22 Preoperative Diagnosis: Change in bowel habit, constipation Postoperative Diagnosis: Severe diverticulosis of sigmoid colon Procedure(s) Performed: Colonoscopy Anesthesia: MAC Surgeon: Tyler Bishop Pathology: none sent Condition: stable Disposition: PACU Description of Procedure: The patient's placed on the endoscopy table in the lateral position. He received IV sedation. Digital rectal exam was performed. The flexible colonoscope was then placed patient anus and passed with colon. The scope could not pass beyond the sigmoid colon sigmoid was severe diverticulosis. The scope was then withdrawn. The rectum appeared normal. Scope withdrawn for patient. He was scheduled for a barium enema.
--- NOTE | 2022-04-14 16:38 | FL ---
EXAMINATION TYPE: FL barium enema w air contrast DATE OF EXAM: 04/14/2022 COMPARISON: CT dated 01/26/2022 HISTORY: Incomplete colonoscopy. History of diverticulosis, colon cancer and colectomy. TECHNIQUE: A double contrast barium enema study is performed. A total of 2 minutes and 29 seconds o f fluoroscopic time was utilized during procedure and 33 images obtained. FINDINGS: Licensed Clinical Social Worker view of the abdomen shows overall previous left total hip arthroplasty with protrusi o acetabuli, multiple surgical clips in the pelvis, previous aneurysmal coiling in the left side of t he pelvis and previous vascular stenting. Extensive arterial atherosclerotic calcification. Marked de generative changes off the lumbar spine. Suboptimal barium enema due to limited mobility of the patient and artifacts caused by the metallic p elvic prosthesis. The patient is known to have previous right hemicolectomy and ileocolic anastomosis in the right side of the abdomen. Excessive diverticulosis in the residual portion of the colon mainly involving the descending colon a nd the sigmoid colon. No evidence of any gross colonic mass, obstructing or constricting lesion throu ghout the colon. No definite colonic stricture identified. Please note that a small colonic lesion o r polyp cannot be excluded by this study. IMPRESSION: Postsurgical changes and extensive colonic diverticulosis as described above. Please note that a smal l colonic lesion or polyp cannot be excluded by this barium enema study.
== END | disposition home or self-care (01) ==
LOC: ORWHC2ENDO 08:54
PROVIDERS: ATTEND Surgery
DX: K57.30 Diverticulosis of large intestine without perforation or abscess without bleeding (principal); I25.2 Old myocardial infarction; I48.91 Unspecified atrial fibrillation; J44.9 Chronic obstructive pulmonary disease, unspecified; K21.9 Gastro-esophageal reflux disease without esophagitis; Z79.01 Long term (current) use of anticoagulants; Z79.51 Long term (current) use of inhaled steroids; Z79.52 Long term (current) use of systemic steroids; Z85.038 Personal history of other malignant neoplasm of large intestine; Z85.828 Personal history of other malignant neoplasm of skin; Z86.73 Personal history of transient ischemic attack (TIA), and cerebral infarction without residual deficits; Z87.891 Personal history of nicotine dependence; Z88.0 Allergy status to penicillin; Z88.1 Allergy status to other antibiotic agents; Z88.2 Allergy status to sulfonamides; Z90.79 Acquired absence of other genital organ(s)
CPT/HCPCS: 45330; 74280; J2370; J2704

== ENCOUNTER → 2022-09-10 | Outpatient (CLI) | payer MEDICARE ==
[2022-09-10 11:12] LABS: Partial Thromboplastin Time 25.8 sec (22.0-30.0); Prothrombin Time 10.8 sec (9.0-12.0)
[2022-09-10 16:37] LABS: Basophils # (A) 0.04 X 10*3/uL (0.00-0.10); Basophils % (A) 0.8 %; Eosinophils # (A) 0.12 X 10*3/uL (0.04-0.35); Eosinophils % (A) 2.3 %; HCT 37.2 % (39.6-50.0); HGB 11.8 g/dL (13.0-17.0); Immature Grans, Automated 0.2 %; Lymphocytes # (A) 0.58 X 10*3/uL (0.90-5.00); Lymphocytes % (A) 11.4 %; MCH 32.6 pg (27.0-32.0); MCHC 31.7 g/dL (32.0-37.0); MCV 102.8 fL (80.0-97.0); Mean Platelet Volume 10.1 fL (9.5-12.2); Monocytes # (A) 1.01 X 10*3/uL (0.20-1.00); Monocytes % (A) 19.8 %; NRBC Per 100 WBC 0 /100 WBCS (0.0-0.0); Neutrophils # (A) 3.35 X 10*3/uL (1.80-7.70); Neutrophils % (A) 65.5 %; Platelet Count 275 X 10*3/uL (140-440); RBC 3.62 X 10*6/uL (4.40-5.60); RDW 12.3 % (11.5-14.5); WBC 5.11 X 10*3/uL (4.50-10.00)
[2022-09-10 17:19] LABS: Erythrocyte Sedimentation Rate 5 mm/Hr (0-20)
[2022-09-10 18:16] LABS: Hepatitis A Antibody IgM Nonreactive (Nonreactive); Hepatitis B Core IgM Nonreactive (Nonreactive); Hepatitis B Surface Antigen Nonreactive (Nonreactive); Hepatitis C IgG Antibody Nonreactive (Nonreactive)
[2022-09-10 18:20] LABS: % Iron Saturation 63.13 (15.00-50.00); ALT 15 U/L (10-49); AST 24 U/L (14-35); African American GFR (CKD) 76.8 (60.0-200.0); Albumin 4.2 g/dL (3.8-4.9); Albumin/Globulin Ratio 1.87 (1.60-3.17); Alkaline Phosphatase 58 U/L (41-126); BUN/Creat Ratio 14.31 Ratio (12.00-20.00); Blood Urea Nitrogen 14.6 mg/dL (9.0-27.0); Calcium 9.4 mg/dL (8.7-10.3); Carbon Dioxide 30.4 mmol/L (20.0-27.5); Chloride 99 mmol/L (96-109); Globulin 2.2 g/dL (1.6-3.3); Glucose 90 mg/dL (70-110); Iron 213 ug/dL (65-175); Non-African American GFR(CKD) 66.2 (60.0-200.0); Phosphorus 3.6 mg/dL (2.4-5.1); Potassium 4.1 mmol/L (3.5-5.5); Sodium 138 mmol/L (135-145); Total Iron Binding Capacity 337 ug/dL (228-460); Total Protein 6.4 g/dL (6.2-8.2); Uric Acid 5.6 mg/dL (3.7-8.7)
[2022-09-10 18:22] LABS: Creatine Kinase 98 U/L (35-257); Ferritin 95.5 ng/mL (22.0-322.0)
[2022-09-10 18:33] LABS: Chol/HDL Ratio 1.88 Ratio
[2022-09-10 18:41] LABS: Rheumatoid Factor, Qnt <10 IU/mL (0-15)
--- NOTE | 2022-09-10 22:29 | XR ---
EXAMINATION TYPE: XR chest 2V DATE OF EXAM: 09/10/2022 COMPARISON: Chest x-ray April 25, 2022 HISTORY: Shortness of breath TECHNIQUE: Frontal and lateral views of the chest are obtained. FINDINGS: There is background chronic emphysematous change without suspicious focal air space opacit y, pleural effusion, or pneumothorax seen. Cardiomegaly is present. The osseous structures are some what demineralized with vertebroplasty at roughly T10 level noted. IMPRESSION: Chronic emphysematous change and cardiomegaly without acute pulmonary process.
[2022-09-12 11:55] LABS: Anti-DNA, DS unit <1.0 IU/mL; Cyclic Citrull Pep IgG Unit 0.6 U/mL; Cyclic Citrullinated Pep IgG NEGATIVE (NEGATIVE); DNA Double-Stranded NEGATIVE (NEGATIVE)
[2022-09-12 14:27] LABS: Smooth Muscle Antibody 10 UNITS (<20)
[2022-09-12 15:03] LABS: C-ANCA <1:20 Titer (<1:20)
[2022-09-12 15:54] LABS: Protein, Total 6.7 g/dL (6.2-8.2)
== END | disposition home or self-care (01) ==
LOC: LABWHC1 09:55
PROVIDERS: ATTEND Internal Medicine
DX: Z00.00 Encounter for general adult medical examination without abnormal findings (principal); N40.0 Benign prostatic hyperplasia without lower urinary tract symptoms; K75.9 Inflammatory liver disease, unspecified; E78.5 Hyperlipidemia, unspecified; E03.9 Hypothyroidism, unspecified; E55.9 Vitamin D deficiency, unspecified; I48.91 Unspecified atrial fibrillation; I73.00 Raynaud's syndrome without gangrene; J43.9 Emphysema, unspecified; I51.7 Cardiomegaly; D64.9 Anemia, unspecified
CPT/HCPCS: 36415; 71046; 80053; 80061; 80074; 82306; 82550; 82728; 83516; 83540; 83550; 83721; 83735; 84100; 84153; 84165; 84443; 84550; 85025; 85610; 85652; 85730; 86038; 86140; 86160; 86162; 86200; 86225; 86255; 86334; 86335; 86431

== ENCOUNTER → 2022-09-23 | Outpatient (CLI) | payer MEDICARE ==
--- NOTE | 2022-09-23 13:12 | US ---
EXAMINATION TYPE: US venous doppler duplex LE DATE OF EXAM: 09/23/2022 12:56 PM COMPARISON: US 2019 CLINICAL HISTORY: R60.0 EDEMA. Bilateral lower leg swelling, patient on blood thinners SIDE PERFORMED: Bilateral TECHNIQUE: The lower extremity deep venous system is examined utilizing real time linear array sonog liliya with graded compression, doppler sonography and color-flow sonography. VESSELS IMAGED: Common Femoral Vein Deep Femoral Vein Greater Saphenous Vein * Femoral Vein Popliteal Vein Small Saphenous Vein * Proximal Calf Veins (* superficial vessels) Right Leg: Appears negative for DVT Left Leg: Appears negative for DVT IMPRESSION: No evidence of DVT at this time.
== END | disposition home or self-care (01) ==
LOC: RADUSWWP 12:24
PROVIDERS: ATTEND Internal Medicine
DX: R60.0 Localized edema (principal)
CPT/HCPCS: 82523; 82607; 82746; 83880; 85379; 93970

== ENCOUNTER → 2022-10-25 | Outpatient (CLI) | payer MEDICARE ==
[2022-10-25 19:25] LABS: African American GFR (CKD) 66.4 (60.0-200.0); Anion Gap 10.6 mmol/L (10.00-18.00); BUN/Creat Ratio 18.43 Ratio (12.00-20.00); Blood Urea Nitrogen 21.2 mg/dL (9.0-27.0); Calcium 9.4 mg/dL (8.7-10.3); Carbon Dioxide 31.4 mmol/L (20.0-27.5); Non-African American GFR(CKD) 57.3 (60.0-200.0); Phosphorus 3.4 mg/dL (2.4-5.1); Potassium 4.4 mmol/L (3.5-5.5)
== END | disposition home or self-care (01) ==
LOC: LABWHC1 14:23
PROVIDERS: ATTEND Internal Medicine
DX: I50.9 Heart failure, unspecified (principal); E87.8 Other disorders of electrolyte and fluid balance, not elsewhere classified; M79.642 Pain in left hand; M79.641 Pain in right hand; M50.20 Other cervical disc displacement, unspecified cervical region; R20.0 Anesthesia of skin
CPT/HCPCS: 36415; 80048; 83735; 83880; 84100

== ENCOUNTER → 2022-12-09 | Outpatient (CLI) | payer MEDICARE | END | disposition home or self-care (01) | LOC: LABWHC1 11:52 | PROVIDERS: ATTEND Psychiatry & Neurology Neurology | DX: R20.0 Anesthesia of skin (principal); G56.03 Carpal tunnel syndrome, bilateral upper limbs; Z79.899 Other long term (current) drug therapy | CPT/HCPCS: 36415; 83036 ==

== ENCOUNTER → 2023-02-10 | Outpatient (CLI) | payer MEDICARE ==
--- NOTE | 2023-02-10 16:13 | CT ---
EXAMINATION TYPE: CT angio chest CT DLP: 236.4 mGycm, Automated exposure control for dose reduction was used. DATE OF EXAM: 02/10/2023 3:59 PM COMPARISON: Chest radiographs 09/10/2022, PET/CT 09/24/2021. CLINICAL INDICATION:Male, 87 years old with history of R06.02 sob; SOB TECHNIQUE/CONTRAST: CTA scan of the thorax is performed with IV Contrast, patient injected with 77cc mL of Isovue 370, pu lmonary embolism protocol. MIP images are created and reviewed. FINDINGS: Pulmonary Artery: There is no evidence for a filling defect within the pulmonary vasculature to sugge st acute pulmonary embolism. The pulmonary artery is of normal size. Reflux of contrast into the IVC and hepatic veins suggesting right heart dysfunction. Lungs/Pleura: No evidence of focal consolidation, pleural effusion or pneumothorax. Tiny calcified gr anulomas within the right lower lobe. Right lower lobe 2 mm pulmonary nodule (series 5, image 90). Ri ght lower lobe groundglass nodule measuring up to 3 mm (series 5, image 118). Mild centrilobular emph ysematous changes. Airway: Large airways are patent. Heart: Mildly enlarged for size. No pericardial effusion. Vasculature: Ascending aortic aneurysm measuring up to 4.2 cm. The aortic root is ectatic measuring u p to 3.9 cm. The descending thoracic aorta is tortuous and ectatic measuring up to 2.9 cm. Atheroscle rotic calcification of the aorta and its branches. Mediastinum: No gross evidence of adenopathy. Musculoskeletal: No acute osseous abnormalities. Vertebroplasty changes involving the T11 vertebral b marco with chronic compression deformity involving the L2 vertebral body. Diffuse bone demineralization . Multiple calcifications anterior to the left humeral head likely representing calcific tendinitis. Soft Tissues: Unremarkable. Lower neck: No significant findings. Upper Abdomen: Calcification within the right hepatic lobe and spleen. Right renal superior pole 4.5 cm cyst. Colonic diverticulosis of the visualized left upper quadrant: Without evidence for acute div erticulitis. IMPRESSION: 1. No evidence of pulmonary embolism. 2. Ascending thoracic aortic aneurysm measuring up to 4.2 cm. Additionally there is ectasia of the a ortic root and descending thoracic aorta. 3. Couple of right lower lobe pulmonary nodules measuring up to 3 mm. In a low-risk patient no follo w-up is recommended. In high-risk patient consider optional CT chest in 12 months. 4. Mild COPD changes.
== END | disposition home or self-care (01) ==
LOC: RADCTMAIN 13:50
PROVIDERS: ATTEND Internal Medicine Critical Care Medicine
DX: I71.21 Aneurysm of the ascending aorta, without rupture (principal); J44.9 Chronic obstructive pulmonary disease, unspecified; R91.8 Other nonspecific abnormal finding of lung field
CPT/HCPCS: 82565; 84520; 71275; 36415; Q9967

== ENCOUNTER → 2023-04-21 | Outpatient (CLI) | payer MEDICARE ==
[2023-04-21 16:23] LABS: Basophils # (A) 0.04 X 10*3/uL (0.00-0.10); Basophils % (A) 0.5 %; Eosinophils # (A) 0.07 X 10*3/uL (0.04-0.35); Eosinophils % (A) 0.9 %; HCT 36.3 % (39.6-50.0); HGB 11.7 g/dL (13.0-17.0); Immature Grans, Automated 0.5 %; Lymphocytes # (A) 0.34 X 10*3/uL (0.90-5.00); Lymphocytes % (A) 4.5 %; MCH 33.1 pg (27.0-32.0); MCHC 32.2 g/dL (32.0-37.0); MCV 102.8 fL (80.0-97.0); Monocytes # (A) 0.73 X 10*3/uL (0.20-1.00); Monocytes % (A) 9.7 %; NRBC Per 100 WBC 0 /100 WBCS (0.0-0.0); Neutrophils # (A) 6.31 X 10*3/uL (1.80-7.70); Neutrophils % (A) 83.9 %; Platelet Count 200 X 10*3/uL (140-440); RBC 3.53 X 10*6/uL (4.40-5.60); Reticulocyte % 1.16 % (0.10-1.80); WBC 7.53 X 10*3/uL (4.50-10.00)
[2023-04-21 16:53] LABS: % Iron Saturation 40.92 (15.00-50.00); ALT 17 U/L (10-49); AST 24 U/L (14-35); African American GFR (CKD) 55.7 (60.0-200.0); Albumin 3.8 g/dL (3.8-4.9); Albumin/Globulin Ratio 1.69 (1.60-3.17); Alkaline Phosphatase 55 U/L (41-126); BUN/Creat Ratio 17.14 Ratio (12.00-20.00); Blood Urea Nitrogen 22.8 mg/dL (9.0-27.0); Calcium 9.6 mg/dL (8.7-10.3); Carbon Dioxide 33.1 mmol/L (20.0-27.5); Chloride 100 mmol/L (96-109); Ferritin 84.2 ng/mL (22.0-322.0); Globulin 2.3 g/dL (1.6-3.3); Glucose 121 mg/dL (70-110); Iron 118 ug/dL (65-175); Non-African American GFR(CKD) 48.1 (60.0-200.0); Phosphorus 3.3 mg/dL (2.4-5.1); Potassium 4.4 mmol/L (3.5-5.5); Sodium 143 mmol/L (135-145); Total Iron Binding Capacity 288 ug/dL (228-460); Total Protein 6.1 g/dL (6.2-8.2)
[2023-04-21 17:03] LABS: Chol/HDL Ratio 2.25 Ratio; LDL Cholesterol,Calculated 75.5 mg/dL (0.0-131.0); VLDL Calculation 10.14 mg/dL (5.00-40.00)
[2023-04-21 17:21] LABS: Erythrocyte Sedimentation Rate 6 mm/Hr (0-20)
== END | disposition home or self-care (01) ==
LOC: LABWHC1 10:53
PROVIDERS: ATTEND Internal Medicine
DX: I10 Essential (primary) hypertension (principal); I25.5 Ischemic cardiomyopathy; E87.8 Other disorders of electrolyte and fluid balance, not elsewhere classified; N40.0 Benign prostatic hyperplasia without lower urinary tract symptoms; E78.5 Hyperlipidemia, unspecified; E03.9 Hypothyroidism, unspecified; D64.9 Anemia, unspecified; E55.9 Vitamin D deficiency, unspecified; K62.5 Hemorrhage of anus and rectum; R19.5 Other fecal abnormalities
CPT/HCPCS: 36415; 80053; 80061; 82306; 82728; 83540; 83550; 83735; 84100; 84443; 85025; 85045; 85652; 86140

== ENCOUNTER 2023-06-17 09:38 | Observation (INO) | payer MEDICARE ==
[2023-06-17] MEDS ORDERED: NITROGLYCERIN SL TABS 0.4 MG TAB SUBLINGUAL STA (10:01)
[2023-06-17] MEDS ORDERED: SODIUM CHLORIDE 0.9% 1,000 ML IV STA (10:01)
--- NOTE | 2023-06-17 10:04 | ED ---
Chest Pain HPI - General Chief Complaint: Chest Pain Stated Complaint: Chest Pain Time Seen by Provider: 06/17/23 09:45 Source: patient, RN notes reviewed Mode of arrival: ambulatory Limitations: no limitations - History of Present Illness Initial Comments: 87-year-old male with a history of atrial fibrillation myocardial infarction CVAs COPD who presents with complaints the onset of left-sided chest pain started around 4 AM he describes it as sharp achy pressure-like heaviness 6/10 severity it does not seem to get worse with deep breathing or movement however. Different than his previous chest pain from his SD. No fevers chills sweats cough or phlegm production. He states he is somewhat short of breath (a chronic condition. No other current complaints no modifying factors no trauma reported MD Complaint: chest pain - Related Data Home Medications Medication Instructions Recorded Confirmed Calcium Carbonate [Calcium] 600 mg PO DAILY 06/08/17 01/04/23 Ferrous Sulfate [Iron (65 MG 325 mg PO DAILY 06/08/17 01/04/23 Elemental)] Glucosam/Edvin-Msm1/C/Lux/Bosw 1 tab PO DAILY 06/08/17 01/04/23 [Glucosamine-Chondroitin Tablet] Montelukast Sodium [Singulair] 10 mg PO HS 06/08/17 01/04/23 predniSONE 5 mg PO DAILY 06/08/17 01/04/23 Budesonide/Formoterol Fumarate 2 puff INHALATION RT-BID 03/29/18 01/04/23 [Symbicort 160-4.5 Mcg Inhaler] Cholecalciferol [Vitamin D3 (125 125 mcg PO DAILY 01/26/22 01/04/23 Mcg = 5000 Iu)] Diclofenac Sodium Gel [Voltaren 2 gm TOPICAL TID PRN 01/26/22 01/04/23 Gel] Famotidine 20 mg PO QAM 01/26/22 01/04/23 Ipratropium/Albuterol Sulfate 1 puff INHALATION RT-QID PRN 01/26/22 01/04/23 [Combivent Respimat Inhaler] Multivitamins, Thera [Multivitamin 1 tab PO DAILY 01/26/22 01/04/23 (formulary)] Dronedarone HCl [Multaq] 400 mg PO BID 02/18/22 01/04/23 Hydrocodone/Acetaminophen 1 each PO Q8HR PRN 02/18/22 01/04/23 [Hydrocodone/Acetaminophen 7.5-325] Metoprolol Succinate [Toprol XL] 25 mg PO DAILY 04/13/22 01/04/23 Acetaminophen [Tylenol Extra 500 mg PO Q6HR 01/04/23 01/04/23 Strength] Furosemide [Lasix] 40 mg PO DAILY 01/04/23 01/04/23 Previous Rx's Medication Instructions Recorded Apixaban [Eliquis] 2.5 mg PO BID #60 tablet 03/31/18 Lidocaine 5% Patch [Lidoderm] 1 each TP Q24H PRN 30 Days #30 01/04/23 patch Allergies Allergy/AdvReac Type Severity Reaction Status Date / Time azithromycin Allergy tissue Verified 06/17/23 09:42 sloughing doxycycline [From Vibramycin] Allergy Tissue Verified 06/17/23 09:42 Sloughing in mouth moxifloxacin [From Avelox] Allergy red skin Verified 06/17/23 09:42 Penicillins Allergy Rash/Hives Verified 06/17/23 09:42 & Swelling lips Sulfa (Sulfonamide Allergy Rash/Hives Verified 06/17/23 09:42 Antibiotics) Review of Systems ROS Statement: Those systems with pertinent positive or pertinent negative responses have been documented in the HPI. ROS Other: All systems not noted in ROS Statement are negative. Past Medical History Past Medical History: Atrial Fibrillation, Asthma, Cancer, Chest Pain / Angina, COPD, CVA/TIA, Hearing Disorder / Deafness, Myocardial Infarction (SD), Prostate Disorder Additional Past Medical History / Comment(s): CVA-no residual, PVCs, hiatal hernia, bowel "blockage", prostate CA, colon CA-Chemo 1996. 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 surgery for fx vertebra 02/2022 Past Anesthesia/Blood Transfusion Reactions: No Reported Reaction Past Psychological History: No Psychological Hx Reported Smoking Status: Former smoker Past Alcohol Use History: Occasional Past Drug Use History: None Reported - Past Family History Mother Family Medical History: No Reported History Additional Family Medical History / Comment(s): . Father Family Medical History: COPD Additional Family Medical History / Comment(s): at age 65- General Exam - General Exam Comments Initial Comments: This is a well-developed well-nourished awake alert oriented 4 male Limitations: no limitations General appearance: alert, anxious Head exam: Present: atraumatic, normocephalic, normal inspection Eye exam: Present: normal appearance, PERRL, EOMI. Absent: scleral icterus, conjunctival injection, periorbital swelling ENT exam: Present: normal exam, mucous membranes moist Neck exam: Present: normal inspection, full ROM, other (No stridor. No bruits). Absent: tenderness, meningismus, lymphadenopathy Respiratory exam: Present: normal lung sounds bilaterally, chest wall tenderness (Tenderness palpation of left costosternal margin no step-off no crepitation the patient does relate that this seems to reproduce some of the pain.). Absent: respiratory distress, wheezes, rales, rhonchi, stridor Cardiovascular Exam: Present: irregular rhythm. Absent: systolic murmur, diastolic murmur, rubs, gallop, clicks GI/Abdominal exam: Present: soft, normal bowel sounds. Absent: distended, tenderness, guarding, rebound, rigid Extremities exam: Present: normal inspection, full ROM, normal capillary refill. Absent: tenderness, pedal edema, joint swelling, calf tenderness Back exam: Present: normal inspection Neurological exam: Present: alert, oriented X3, CN II-XII intact Psychiatric exam: Present: normal affect, normal mood Skin exam: Present: warm, dry, intact, normal color. Absent: rash Course Vital Signs 06/17/23 06/17/23 06/17/23 09:39 09:42 10:00 Temperature 97.9 F Pulse Rate 78 90 70 Respiratory 18 24 16 Rate Blood Pressure 132/81 142/87 100/73 O2 Sat by Pulse 99 99 Oximetry 06/17/23 12:00 Temperature Pulse Rate 79 Respiratory 20 Rate Blood Pressure 101/72 O2 Sat by Pulse Oximetry Chest Pain MDM - MDM Imaging interpreted by me evidence of COPD no acute processes seen. EKG also interpreted by me A. fib rate 76 QRS 104 QT since QTC 373/44 PVC noted. No acute ST-T wave changes I did discuss the findings with the patient and his also with Dr. Burden who did see the patient in the emergency department who is covering for Dr. Brambila. Patient be admitted further evaluation for chest pain and elevated troponin as well as elevated BNP.Was pt. sent in by a medical professional or institution (, PA, MANAGER SALT, urgent care, hospital, or [facility]...) When possible be specific @ -No Did you speak to anyone other than the patient for history (EMS, parent, family, police, friend...)? What history was obtained from this source @ -The patient's Did you review nursing and triage notes (agree or disagree)? Why? @ -I reviewed and agree with nursing and triage notes Were old charts reviewed (outside hosp., previous admission, EMS record, old EKG, old radiological studies, urgent care reports/EKG's, [facility] records)? Report findings @ -No old charts were reviewed Differential Diagnosis (chest pain, altered mental status, abdominal pain women, abdominal pain men, vaginal bleeding, weakness, fever, dyspnea, syncope, headache, dizziness, GI bleed, back pain, seizure, CVA, palpatations, mental health, musculoskeletal)? @ -Chest pain EKG interpreted by me (3pts min.). @ -As above EKG shows evidence of atrial fibrillation rate 76 QRS duration 104 QT since QTC 373/44 A. fib evidence of poor R-wave progression evidence of inferior changes unifocal PVC seen no acute ST-T wave changes X-rays interpreted by me (1pt min.). @ -Evaluated and interpreted by me COPD no acute processes CT interpreted by me (1pt min.). @ -None done U/S interpreted by me (1pt. min.). @ -None done What testing was considered but not performed or refused? (CT, X-rays, U/S, labs)? Why? @ -None What meds were considered but not given or refused? Why? @ -None Did you discuss the management of the patient with other professionals (professionals i.e. , PA, MANAGER SALT, lab, RT, psych nurse, director social welfare, kaiako kura kaupapa maori, teacher, building drafting officer, casework specialist)? Give summary @ -Dr. Burden who did come the emergency department and see the patient Was smoking cessation discussed for >3mins.? @ -No Was critical care preformed (if so, how long)? @ -No Were there social determinants of health that impacted care today? How? (Homelessness, low income, unemployed, alcoholism, drug addiction, transportation, low edu. Level, literacy, decrease access to med. care, half-way, rehab)? @ -No Was there de-escalation of care discussed even if they declined (Discuss DNR or withdrawal of care, Hospice)? DNR status @ -No What co-morbidities impacted this encounter? (DM, HTN, Smoking, COPD, CAD, Cancer, CVA, ARF, Chemo, Hep., AIDS, mental health diagnosis, sleep apnea, morbid obesity)? @ -History of SD A. fib, asthma, history of CVA Was patient admitted / discharged? Hospital course, mention meds given and route, prescriptions, significant lab abnormalities, going to OR and other pertinent info. @ -hospital course patient was admitted for further inpatient evaluation Undiagnosed new problem with uncertain prognosis? @ -No Drug Therapy requiring intensive monitoring for toxicity (Heparin, Nitro, Insulin, Cardizem)? @ -No Were any procedures done? @ -No Diagnosis/symptom? @ -Atypical chest pain, elevated BNP, elevated troponin Acute, or Chronic, or Acute on Chronic? @ -default Uncomplicated (without systemic symptoms) or Complicated (systemic symptoms)? @ -default Side effects of treatment? @ -No Exacerbation, Progression, or Severe Exacerbation? @ -No Poses a threat to life or bodily function? How? (Chest pain, USA, SD, pneumonia, PE, COPD, DKA, ARF, appy, cholecystitis, CVA, Diverticulitis, Homicidal, Suicidal, threat to staff... and all critical care pts) @ -Chest pain Disposition Clinical Impression: Atypical chest pain, Elevated troponin, Elevated brain natriuretic peptide (BNP) level Disposition: ADMITTED IP TO THIS [facility] Condition: Stable Referrals: Peewee Brambila MD [Primary Care Provider] - 1-2 days Decision Date: 06/17/23 Decision Time: 14:00
--- NOTE | 2023-06-17 10:51 | XR ---
EXAMINATION TYPE: XR chest 2V DATE OF EXAM: 06/17/2023 10:26 AM COMPARISON: Chest radiographs from 09/10/2022, CT chest 02/10/2023 TECHNIQUE: XR chest 2V Frontal and lateral views of the chest. CLINICAL INDICATION:Male, 87 years old with history of Chest Pain; FINDINGS: Lungs/Pleura: There is no evidence of pleural effusion, focal consolidation, or pneumothorax. Hyperi nflation. Chronic senescent parenchymal change. Pulmonary vascularity: Unremarkable. Heart/mediastinum: Cardiomediastinal silhouette is unremarkable. Atherosclerotic calcifications are seen in the aorta. Musculoskeletal: No acute osseous pathology. Chronic compression deformity with vertebral augmentatio n involving the T11 vertebral body. IMPRESSION: 1. No acute cardiopulmonary disease process. 2. COPD changes.
[2023-06-17 11:06] LABS: Basophils % (A) 1 %; Eosinophils # (A) 0.2 k/uL (0-0.7); Eosinophils % (A) 3 %; HCT 39.9 % (39.0-53.0); HGB 13.4 gm/dL (13.0-17.5); Lymphocytes % (A) 17 %; MCH 34.2 pg (25.0-35.0); MCHC 33.5 g/dL (31.0-37.0); Mean Platelet Volume 7.9; Monocytes # (A) 0.8 k/uL (0-1.0); Monocytes % (A) 14 %; Neutrophils # (A) 3.8 k/uL (1.3-7.7); Neutrophils % (A) 64 %; Platelet Count 195 k/uL (150-450); RBC 3.91 m/uL (4.30-5.90); RDW 12.2 % (11.5-15.5); WBC 5.9 k/uL (3.8-10.6)
[2023-06-17 11:20] LABS: ALT 20 U/L (4-49); AST 26 U/L (17-59); African American GFR (CKD) 71 (>60 ml/min/1.73 sqM); Albumin 3.5 g/dL (3.5-5.0); Alkaline Phosphatase 56 U/L (38-126); Anion Gap 7 mmol/L; Blood Urea Nitrogen 20 mg/dL (9-20); Calcium 9.1 mg/dL (8.4-10.2); Carbon Dioxide 32 mmol/L (22-30); Chloride 99 mmol/L (98-107); Glucose 124 mg/dL (74-99); Lipase 87 U/L (23-300); Magnesium 1.8 mg/dL (1.6-2.3); Non-African American GFR(CKD) 61 (>60 ml/min/1.73 sqM); Potassium 3.8 mmol/L (3.5-5.1); Sodium 138 mmol/L (137-145); Total Bilirubin 0.7 mg/dL (0.2-1.3); Total Protein 6.5 g/dL (6.3-8.2)
[2023-06-17 11:26] LABS: Partial Thromboplastin Time 24.4 sec (22.0-30.0); Prothrombin Time 10.8 sec (9.0-12.0)
[2023-06-17 11:29] LABS: NT-Pro-B-Type Natriuretic Pept 1500 pg/mL
[2023-06-17] MEDS ORDERED: NITROGLYCERIN SL TABS 0.4 MG TAB SUBLINGUAL PRN (14:30)
[2023-06-17] MEDS ORDERED: IPRATROPIUM-ALBUTEROL 3 ML NEB INHALATION PRN (14:31)
[2023-06-17] MEDS: ACETAMINOPHEN TAB 500 MG TAB PO SCH (17:15)
[2023-06-17] MEDS: PANTOPRAZOLE 40 MG/10 ML VIAL IVP SCH (17:15)
--- NOTE | 2023-06-17 20:27 | HP ---
HISTORY AND PHYSICAL I am covering for Dr. Brambila. CHIEF COMPLAINT: Chest pain. HISTORY OF PRESENT ILLNESS: This is an 87-year-old gentleman with a past medical history of multiple medical problems, admitted with left-sided chest pain started around 4 a.m. The pain is rather sharp with some local tenderness also, but however, the troponins were found to be elevated up to 0.03. The patient was admitted for further evaluation and treatment. There is no history of any chest pain, palpitation, headache, loss of consciousness. PAST MEDICAL HISTORY: Reviewed include atrial fibrillation. Rest of the history and rest of the chart is also reviewed. HOME MEDICATIONS: Reviewed include prednisone. Doses and rest of medications reviewed. Still not confirmed yet. ALLERGIES: Reviewed multiple include Zithromax. FAMILY HISTORY: No history of heart disease or strokes in the family. SOCIAL HISTORY: Previous history of smoking. REVIEW OF SYSTEMS: Fourteen-point review is negative except as mentioned earlier. PHYSICAL EXAMINATION: VITAL SIGNS: Pulse 70, blood pressure 100/70, respirations 16. HEENT: Conjunctivae normal. NECK: No JVD. CARDIOVASCULAR: S1, S2 muffled. RESPIRATIONS: Breath sounds at the bases. No rhonchi no crackles. ABDOMEN: Soft, nontender. LEGS: No edema. NERVOUS SYSTEM: Nonfocal. SKIN: No ulcer, rash, or bleeding. JOINTS: No active deforming arthropathy. LABORATORY DATA: Reviewed. ASSESSMENT: 1. Chest pain, possible unstable angina, rule out acute [id number]-elevation myocardial infarction. 2. Troponin 0.035. 3. History of atrial fibrillation. 4. History of chronic obstructive pulmonary disease. 5. History of myocardial infarction. 6. Multiple medical issues. RECOMMENDATIONS AND DISCUSSION: This is an 87-year-old gentleman presented with multiple complex medical issues, we will monitor the patient closely. Rule out myocardial infarction, unstable angina protocol. Cardiology consultation. Prognosis guarded because of multiple complex medical issues. Discussed with family. Further recommendations to follow. See orders for further details. MMODL / IJN: [id number] /
[2023-06-17] MEDS: SYMBICORT 160-4.5 MCG INHALER INHALATION SCH (20:55)
[2023-06-17] MEDS: APIXABAN 2.5 MG TABLET PO SCH (21:47)
[2023-06-17] MEDS: DRONEDARONE 400 MG TAB PO SCH (21:47)
[2023-06-17] MEDS: MONTELUKAST 10 MG TAB PO SCH (21:47)
[2023-06-18] MEDS: HYDROcodone/APAP 7.5-325MG 1 EACH TAB PO PRN ×2 (02:40→19:49)
[2023-06-18] MEDS: ACETAMINOPHEN TAB 500 MG TAB PO SCH ×5 (06:40→23:34)
[2023-06-18 08:24] LABS: Basophils % (A) 0 %; Eosinophils # (A) 0.1 k/uL (0-0.7); Eosinophils % (A) 3 %; HCT 34.9 % (39.0-53.0); HGB 11.9 gm/dL (13.0-17.5); Lymphocytes # (A) 0.7 k/uL (1.0-4.8); Lymphocytes % (A) 12 %; MCH 34.8 pg (25.0-35.0); MCHC 34.1 g/dL (31.0-37.0); Monocytes # (A) 0.8 k/uL (0-1.0); Monocytes % (A) 15 %; Neutrophils # (A) 3.9 k/uL (1.3-7.7); Neutrophils % (A) 68 %; Platelet Count 186 k/uL (150-450); RBC 3.43 m/uL (4.30-5.90); RDW 12.3 % (11.5-15.5); WBC 5.7 k/uL (3.8-10.6)
[2023-06-18] MEDS: CHOLECALCIFEROL 125 MCG (5000 IU) TABLET PO SCH (08:50)
[2023-06-18] MEDS: CALCIUM CARBONATE 500 MG CHEWABLE PO SCH (08:50)
[2023-06-18] MEDS: SYMBICORT 160-4.5 MCG INHALER INHALATION SCH ×2 (08:55→22:03)
[2023-06-18] MEDS ORDERED: NON FORMULARY DRUG (Glucosam/Chon-Msm1/C/Mang/Bosw [Glucosamine-Chondroitin Tablet] 1 EACH PO SCH (09:00)
[2023-06-18] MEDS ORDERED: FUROSEMIDE 40 MG TAB PO SCH (09:00)
[2023-06-18] MEDS ORDERED: ASPIRIN 325 MG TAB PO SCH (09:00)
[2023-06-18] MEDS: predniSONE 5 MG TAB PO SCH (09:01)
[2023-06-18] MEDS: FERROUS SULFATE 325 MG TAB PO SCH (09:01)
[2023-06-18] MEDS: METOPROLOL SUCCINATE (ER) 25 MG TAB.ER.24H PO SCH (09:01)
[2023-06-18] MEDS: APIXABAN 2.5 MG TABLET PO SCH ×2 (09:01→20:22)
[2023-06-18] MEDS: MULTIVITAMINS, THERA 1 EACH TAB PO SCH (09:01)
[2023-06-18] MEDS: FAMOTIDINE 20 MG TAB PO SCH (09:01)
[2023-06-18] MEDS: DRONEDARONE 400 MG TAB PO SCH ×2 (09:02→20:22)
[2023-06-18] MEDS: PANTOPRAZOLE 40 MG/10 ML VIAL IVP SCH (09:02)
[2023-06-18 09:16] LABS: African American GFR (CKD) 74 (>60 ml/min/1.73 sqM); Anion Gap 2 mmol/L; Blood Urea Nitrogen 21 mg/dL (9-20); Calcium 8.2 mg/dL (8.4-10.2); Carbon Dioxide 34 mmol/L (22-30); Chloride 100 mmol/L (98-107); Glucose 79 mg/dL (74-99); Non-African American GFR(CKD) 64 (>60 ml/min/1.73 sqM); Sodium 136 mmol/L (137-145)
--- NOTE | 2023-06-18 14:26 | P.CRDCN ---
History of Present Illness Consult date: 06/18/23 History of present illness: HISTORY OF PRESENTING ILLNESS Patient is a 87-year-old location male with past medical history of chronic persistent atrial fibrillation on anticoagulation with Eliquis. He also has history of prior CVA, hypertension, dyslipidemia. He was last evaluated by cardiology in 2017 and is previously known to Dr. Puente. In 2018 he had a heart cath which showed minimal obstructive coronary artery disease. This time he presented to the hospital with worsening left-sided chest pain. Patient reports that his chest pain started on night prior to coming to the hospital. He reports his chest pain and somewhat constant in nature. It is not particularly exacerbated or alleviated with activity or rest. It does not changes in intensity with position change. It is not get worse with deep beats or coughing. He localizes the pain in left lower chest. It does not reproducible on palpation. He denies any associated shortness of breath. He denies any diaphoresis. He denies any nausea. He denies any orthopnea, paroxysmal nocturnal dyspnea or palpitations. DIAGNOSTICS EKG reveals atrial fibrillation with nonspecific ST changes. This is not changed from prior exam. Chest xray clear lung mcgarry with no signs of primary congestion. Laboratory reviewed, hemoglobin 11.9, creatinine 1.5. Troponin 0.01, 0.02, 0.03. He is essentially negative. His BNP was measured at 1500. Current cardiac medications include Eliquis 2.5 mg, metoprolol succinate 25 mg daily, Lasix 40 mg daily, Dronaderone 400 mg twice a day. Recent echo from January 2023 shows EF 40-45%, moderate mitral regurgitation, inferoseptal and inferior wall hypokinesia REVIEW OF SYSTEMS At the time of my exam: CONSTITUTIONAL: Denies fever or chills. CARDIOVASCULAR: Left lower chest pain. No shortness of breath RESPIRATORY: Denies cough. GASTROINTESTINAL: Denies abdominal pain, diarrhea, constipation, nausea or vomiting. MUSCULOSKELETAL: Denies myalgias. NEUROLOGIC: Denies numbness, tingling or weakness. ENDOCRINE: Denies fatigue, weight change, polydipsia or polyurina. GENITOURINARY: Denies burning, hematuria or urgency with micturation. HEMATOLOGIC: Denies history of anemia or bleeding. PHYSICAL EXAMINATION Vital signs reviewed. CONSTITUTIONAL: No apparent distress. HEENT: Head is normocephalic. Pupils are equal, round. Sclerae anicteric. Mucous membranes of the mouth are moist. No JVD. No carotid bruit. CHEST EXAMINATION: Lungs are clear to auscultation. No chest wall tenderness is noted on palpation or with deep breathing. HEART EXAMINATION: Irregularly irregular S1, S2 heard. No murmurs, gallops or rub. ABDOMEN: Soft, nontender. Positive bowel sounds. EXTREMITIES: 2+ peripheral pulses, no lower extremity edema and no calf tenderness. NEUROLOGIC EXAMINATION: Patient is awake, alert and oriented x3. ASSESSMENT Atypical chest pain. Rule out of acute coronary syndrome. Chest pain likely noncardiac. Most likely related to chest wall and musculoskeletal Ischemic cardiomyopathy with mildly reduced EF. Not in CHF exacerbation. EF 40-45%, basal inferior wall hypokinesia. Moderate mitral regurgitation Chronic atrial fibrillation History of myocardial infarction History of COPD PLAN Patient is not in overt heart failure. He does not appear volume overloaded on physical examination We will obtain a echocardiogram Continue current cardiac medications Eliquis 2.5 mg twice a day, metoprolol succinate 25 mg daily, Continue dronaderone 400 mg twice daily. Start lisinopril 2.5 mg daily. Reduce Lasix to 20 mg daily I would like to follow up with this patient in clinic and assess the need for dronaderone. Patient had stayed in atrial fibrillation while being on this and to make medication. Past Medical History Past Medical History: Atrial Fibrillation, Asthma, Cancer, Chest Pain / Angina, COPD, CVA/TIA, Hearing Disorder / Deafness, Myocardial Infarction (NM), Prostate Disorder Additional Past Medical History / Comment(s): CVA-no residual, PVCs, hiatal hernia, bowel "blockage", prostate CA, colon CA-Chemo 1996. 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 surgery for fx vertebra 02/2022 Past Anesthesia/Blood Transfusion Reactions: No Reported Reaction Past Psychological History: No Psychological Hx Reported Additional Psychological History / Comment(s): . Smoking Status: Never smoker Past Alcohol Use History: Occasional Past Drug Use History: None Reported - Past Family History Mother Family Medical History: No Reported History Additional Family Medical History / Comment(s): . Father Family Medical History: COPD Additional Family Medical History / Comment(s): at age 65- Medications and Allergies Home Medications Medication Instructions Recorded Confirmed Type Ferrous Sulfate [Iron (65 MG 325 mg PO DAILY 06/08/17 06/17/23 History Elemental)] Montelukast Sodium [Singulair] 10 mg PO HS 06/08/17 06/17/23 History predniSONE 5 mg PO DAILY 06/08/17 06/17/23 History Budesonide/Formoterol Fumarate 2 puff INHALATION RT-BID 03/29/18 06/17/23 History [Symbicort 160-4.5 Mcg Inhaler] Apixaban [Eliquis] 2.5 mg PO BID #60 tablet 03/31/18 06/17/23 Rx Famotidine 20 mg PO DAILY 01/26/22 06/17/23 History Ipratropium/Albuterol Sulfate 1 puff INHALATION RT-QID PRN 01/26/22 06/17/23 History [Combivent Respimat Inhaler] Multivitamins, Thera [Multivitamin 1 tab PO DAILY 01/26/22 06/17/23 History (formulary)] Dronedarone HCl [Multaq] 400 mg PO BID-W/MEALS 02/18/22 06/17/23 History Metoprolol Succinate [Toprol XL] 25 mg PO DAILY 04/13/22 06/17/23 History Acetaminophen [Tylenol Extra 1,000 mg PO Q6HR PRN 01/04/23 06/17/23 History Strength] Furosemide [Lasix] 40 mg PO DAILY 01/04/23 06/17/23 History Amitriptyline HCl [Elavil] 10 mg PO HS PRN 06/17/23 06/17/23 History Calcium Carbonate 500 mg PO DAILY 06/17/23 06/17/23 History Cyanocobalamin (Vitamin B-12) 1,000 mcg PO DAILY 06/17/23 06/17/23 History [Vitamin B-12] Dandelion Root 1,575 mg PO DAILY 06/17/23 06/17/23 History Docusate [Colace] 100 mg PO TID 06/17/23 06/17/23 History Fish Oil/Dha/Epa [Fish Oil 1,200 1 cap PO DAILY 06/17/23 06/17/23 History mg Fish Oil] Gabapentin 300 mg PO BID 06/17/23 06/17/23 History Prevagen 1 tab PO DAILY 06/17/23 06/17/23 History Thiamine [Vitamin B-1] 100 mg PO DAILY 06/17/23 06/17/23 History Vitamin B Complex 1 cap PO DAILY 06/17/23 06/17/23 History calcium polycarbophiL [Fibercon] 625 mg PO DAILY 06/17/23 06/17/23 History polyethylene glycoL 3350 [Miralax] 17 gm PO DAILY 06/17/23 06/17/23 History Allergies Allergy/AdvReac Type Severity Reaction Status Date / Time azithromycin Allergy tissue Verified 06/17/23 16:49 sloughing doxycycline [From Vibramycin] Allergy Tissue Verified 06/17/23 16:49 Sloughing in mouth moxifloxacin [From Avelox] Allergy red skin Verified 06/17/23 16:49 Penicillins Allergy Rash/Hives Verified 06/17/23 16:49 & Swelling lips Sulfa (Sulfonamide Allergy Rash/Hives Verified 06/17/23 16:49 Antibiotics) Physical Exam Vitals: Vital Signs Temp Pulse Pulse Resp BP BP Pulse Ox 06/18/23 13:48 58 L 18 06/18/23 12:00 58 L 18 116/72 96 06/18/23 08:58 99 06/18/23 08:00 97.5 F L 66 18 116/71 99 06/18/23 04:00 99.0 F 71 16 138/84 98 06/18/23 02:00 74 16 06/18/23 00:00 97.6 F 74 16 143/88 98 06/17/23 20:00 97.4 F L 69 16 155/102 98 06/17/23 18:23 97.8 F 65 16 120/71 97 06/17/23 17:19 97.8 F 65 18 120/71 97 06/17/23 15:00 65 16 127/80 98 Intake and Output 07/06/18/23 06/18/23 22:59 06:59 14:59 Intake Total 120 Output Total 200 700 Balance -200 -580 Intake: Oral 120 Output: Urine 200 700 Other: Voiding Method Toilet Urinal # Voids 0 Weight 58.967 kg Results 06/18/23 06:48 06/18/23 06:48 Cardiac Enzymes 06/17/23 06/17/23 Range/Units 15:37 18:01 Troponin I 0.020 0.018 (0.000-0.034) ng/mL CBC 06/18/23 Range/Units 06:48 WBC 5.7 (3.8-10.6) k/uL RBC 3.43 L (4.30-5.90) m/uL Hgb 11.9 L (13.0-17.5) gm/dL Hct 34.9 L (39.0-53.0) % Plt Count 186 (150-450) k/uL Comprehensive Metabolic Panel 06/18/23 Range/Units 06:48 Sodium 136 L (137-145) mmol/L Potassium 4.0 (3.5-5.1) mmol/L Chloride 100 (98-107) mmol/L Carbon Dioxide 34 H (22-30) mmol/L BUN 21 H (9-20) mg/dL Creatinine 1.05 (0.66-1.25) mg/dL Glucose 79 (74-99) mg/dL Calcium 8.2 L (8.4-10.2) mg/dL Current Medications Generic Name Dose Route Start Last Admin Trade Name Freq PRN Reason Stop Dose Admin Acetaminophen 500 mg 06/17/23 18:00 06/18/23 11:13 Acetaminophen Tab 500 Mg Tab PO Not Given Q6HR [facility] Hydrocodone Bitart/Acetaminophen 1 each 06/17/23 14:31 06/18/23 02:40 Hydrocodone/Apap 7.5-325mg 1 Each Tab PO 1 each Q8HR PRN Administration Pain Albuterol/Ipratropium 3 ml 06/17/23 14:31 Ipratropium-Albuterol 3 Ml Neb INHALATION RT-QID PRN Shortness Of Breath Apixaban 2.5 mg 06/17/23 21:00 06/18/23 09:01 Apixaban 2.5 Mg Tablet PO 2.5 mg BID MAGDI Administration Protocol Aspirin 325 mg 06/18/23 09:00 06/18/23 08:50 Aspirin 325 Mg Tab PO Not Given DAILY [facility] Budesonide/Formoterol Fumarate 2 puff 06/17/23 20:00 06/18/23 08:55 Symbicort 160-4.5 Mcg Inhaler INHALATION Not Given RT-BID [facility] Calcium Carbonate/Glycine 500 mg 06/18/23 09:00 06/18/23 08:50 Calcium Carbonate 500 Mg Chewable PO Not Given DAILY [facility] Cholecalciferol 125 mcg 06/18/23 09:00 06/18/23 08:50 Cholecalciferol 125 Mcg (5000 Iu) Tablet PO Not Given DAILY [facility] Dronedarone 400 mg 06/17/23 21:00 06/18/23 09:02 Dronedarone 400 Mg Tab PO 400 mg BID MAGDI Administration Famotidine 20 mg 06/18/23 09:00 06/18/23 09:01 Famotidine 20 Mg Tab PO 20 mg QAM [facility] Administration Ferrous Sulfate 325 mg 06/18/23 09:00 06/18/23 09:01 Ferrous Sulfate 325 Mg Tab PO 325 mg DAILY MAGDI Administration Furosemide 40 mg 06/18/23 09:00 06/18/23 09:01 Furosemide 40 Mg Tab PO 40 mg DAILY [facility] Administration Metoprolol Succinate 25 mg 06/18/23 09:00 06/18/23 09:01 Metoprolol Succinate (Er) 25 Mg Tab.Er.24h PO 25 mg DAILY MAGDI Administration Montelukast Sodium 10 mg 06/17/23 21:00 06/17/23 21:47 Montelukast 10 Mg Tab PO 10 mg HS [facility] Administration Multivitamins 1 each 06/18/23 09:00 06/18/23 09:01 Multivitamins, Thera 1 Each Tab PO 1 each DAILY [facility] Administration Nitroglycerin 0.4 mg 06/17/23 14:30 Nitroglycerin Sl Tabs 0.4 Mg Tab SUBLINGUAL Q5M PRN Chest Pain Pantoprazole Sodium 40 mg 06/17/23 16:00 06/18/23 09:02 Pantoprazole 40 Mg/10 Ml Vial IVP 40 mg DAILY [facility] Administration Prednisone 5 mg 06/18/23 09:00 06/18/23 09:01 Prednisone 5 Mg Tab PO 5 mg DAILY [facility] Administration Intake and Output 06/17/23 06/18/23 06/18/23 22:59 06:59 14:59 Intake Total 120 Output Total 200 700 Balance -200 -580 Intake: Oral 120 Output: Urine 200 700 Other: Voiding Method Toilet Urinal # Voids 0 Weight 58.967 kg 06/18/23 06:48 06/18/23 06:48
--- NOTE | 2023-06-18 15:00 | PN ---
PROGRESS NOTE DATE OF SERVICE: 06/18/2023 I am covering for Dr. Brambila. SUBJECTIVE: This is an 87-year-old gentleman admitted with chest pain. He has persistent chest pain, but however, the troponins are showing a downward trend. Cardiology is evaluating the patient. PHYSICAL EXAMINATION: VITAL SIGNS: Pulse is 58, blood pressure 116/72, respirations 18. CHEST: Clear to auscultation. CARDIOVASCULAR: S1, S2. ABDOMEN: Soft. NERVOUS SYSTEM: No focal deficits. LABORATORY DATA: Reviewed. ASSESSMENT: 1. Chest pain, possible unstable angina, rule out acute nit-MU-tixkyiv-elevation myocardial infarction. 2. Troponin 0.035, showing downward trending. 3. History of atrial fibrillation. 4. History of chronic obstructive pulmonary disease. 5. History of myocardial infarction. 6. Multiple medical issues. RECOMMENDATIONS AND DISCUSSION: Recommend to continue current management, continue symptomatic treatment. Otherwise, at this time, I recommend closely follow with Cardiology. Otherwise, echo has been ordered. Recommend repeat labs in the morning. Dr. Brambila will follow. MMODL / IJN: [id number] /
[2023-06-18] MEDS: MONTELUKAST 10 MG TAB PO SCH (20:22)
[2023-06-18 23:20] LABS: Chol/HDL Ratio 2.55 Ratio; LDL Cholesterol,Calculated 79.8 mg/dL (0.0-131.0); VLDL Calculation 13.68 mg/dL (5.00-40.00)
[2023-06-19 02:34] VITALS: RESP 20
[2023-06-19] MEDS: ACETAMINOPHEN TAB 500 MG TAB PO SCH ×2 (05:28→13:20)
[2023-06-19] MEDS ORDERED: FUROSEMIDE 20 MG TAB PO SCH (09:00)
[2023-06-19] MEDS ORDERED: ASPIRIN 81 MG PO SCH (09:00)
[2023-06-19] MEDS: CHOLECALCIFEROL 125 MCG (5000 IU) TABLET PO SCH (09:35)
[2023-06-19] MEDS: METOPROLOL SUCCINATE (ER) 25 MG TAB.ER.24H PO SCH (09:35)
[2023-06-19] MEDS: MULTIVITAMINS, THERA 1 EACH TAB PO SCH (09:35)
[2023-06-19] MEDS: CALCIUM CARBONATE 500 MG CHEWABLE PO SCH (09:35)
[2023-06-19] MEDS: FAMOTIDINE 20 MG TAB PO SCH (09:36)
[2023-06-19] MEDS: APIXABAN 2.5 MG TABLET PO SCH (09:36)
[2023-06-19] MEDS: DRONEDARONE 400 MG TAB PO SCH (09:36)
[2023-06-19] MEDS: predniSONE 5 MG TAB PO SCH (09:36)
[2023-06-19] MEDS: FERROUS SULFATE 325 MG TAB PO SCH (09:36)
[2023-06-19] MEDS: SYMBICORT 160-4.5 MCG INHALER INHALATION SCH (09:45)
--- NOTE | 2023-06-19 10:01 | P.PN ---
Subjective Progress Note Date: 06/19/23 HISTORY OF PRESENTING ILLNESS Patient is a 87-year-old location male with past medical history of chronic persistent atrial fibrillation on anticoagulation with Eliquis. He also has history of prior CVA, hypertension, dyslipidemia. He was last evaluated by cardiology in 2018 and is previously known to Dr. Puente. In 2018 he had a heart cath which showed minimal obstructive coronary artery disease. This time he presented to the hospital with worsening left-sided chest pain. Patient reports that his chest pain started on night prior to coming to the hospital. He reports his chest pain and somewhat constant in nature. It is not particularly exacerbated or alleviated with activity or rest. It does not changes in intensity with position change. It is not get worse with deep beats or coughing. He localizes the pain in left lower chest. It does not reproducible on palpation. He denies any associated shortness of breath. He denies any diaphoresis. He denies any nausea. He denies any orthopnea, paroxysmal nocturnal dyspnea or palpitations. DIAGNOSTICS EKG reveals atrial fibrillation with nonspecific ST changes. This is not changed from prior exam. Chest xray clear lung mcgarry with no signs of primary congestion. Laboratory reviewed, hemoglobin 11.9, creatinine 1.5. Troponin 0.01, 0.02, 0.03. He is essentially negative. His BNP was measured at 1500. Current cardiac medications include Eliquis 2.5 mg, metoprolol succinate 25 mg daily, Lasix 40 mg daily, Dronaderone 400 mg twice a day. Recent echo from January 2023 shows EF 40-45%, moderate mitral regurgitation, inferoseptal and inferior wall hypokinesia 06/19 She is seen today in follow-up. Denies any new concerns. Lisinopril was started this morning. Echocardiogram has been obtained and films reviewed. PHYSICAL EXAMINATION Vital signs reviewed. CONSTITUTIONAL: No apparent distress. HEENT: Head is normocephalic. Pupils are equal, round. Sclerae anicteric. Mucous membranes of the mouth are moist. No JVD. No carotid bruit. CHEST EXAMINATION: Lungs are clear to auscultation. No chest wall tenderness is noted on palpation or with deep breathing. HEART EXAMINATION: Irregularly irregular S1, S2 heard. No murmurs, gallops or rub. ABDOMEN: Soft, nontender. Positive bowel sounds. EXTREMITIES: 2+ peripheral pulses, no lower extremity edema and no calf tenderness. NEUROLOGIC EXAMINATION: Patient is awake, alert and oriented x3. ASSESSMENT Atypical chest pain. Rule out of acute coronary syndrome. Chest pain likely noncardiac. Most likely related to chest wall and musculoskeletal Ischemic cardiomyopathy with mildly reduced EF. Not in CHF exacerbation. EF 40-45%, basal inferior wall hypokinesia. Moderate mitral regurgitation Chronic atrial fibrillation History of myocardial infarction History of COPD PLAN Patient is not in overt heart failure. He does not appear volume overloaded on physical examination Continue current cardiac medications Eliquis 2.5 mg twice a day, metoprolol succinate 25 mg daily, Continue dronaderone 400 mg twice daily. Start lisinopril 2.5 mg daily. Reduce Lasix to 20 mg daily No aspirin needed at the time of discharge. Patient is cleared for discharge from cardiology and may follow-up in the office. I would like to follow up with this patient in clinic and assess the need for dronaderone. Patient had stayed in atrial fibrillation while being on this and to make medication. Objective - Vital Signs Vital signs: Vital Signs Temp 97.7 F 06/19/23 04:00 Pulse 81 06/19/23 04:00 Resp 20 06/19/23 04:00 BP 131/76 06/19/23 04:00 Pulse Ox 96 06/19/23 04:00 FiO2 Intake & Output 06/18/23 06/19/23 06/19/23 18:59 06:59 18:59 Intake Total 240 240 Output Total 700 675 Balance -460 -435 Intake: Oral 240 240 Output: Urine 700 675 Other: Voiding Method Toilet Toilet Urinal Urinal - Labs CBC & Chem 7: 06/18/23 06:48 06/18/23 06:48 Labs: Abnormal Lab Results - Last 24 Hours (Table) 06/18/23 Range/Units 06:48 Sodium 136 L (137-145) mmol/L Carbon Dioxide 34 H (22-30) mmol/L BUN 21 H (9-20) mg/dL Calcium 8.2 L (8.4-10.2) mg/dL HDL Cholesterol 60.50 H (40.00-60.00) mg/dL
[2023-06-19 11:40] VITALS: TEMP 97.8
[2023-06-19 12:15] LABS: Basophils % (A) 0 %; Eosinophils # (A) 0.1 k/uL (0-0.7); Eosinophils % (A) 1 %; HCT 36.7 % (39.0-53.0); HGB 12.6 gm/dL (13.0-17.5); Lymphocytes # (A) 0.5 k/uL (1.0-4.8); Lymphocytes % (A) 7 %; MCH 34.4 pg (25.0-35.0); MCHC 34.2 g/dL (31.0-37.0); MCV 100.4 fL (80.0-100.0); Mean Platelet Volume 8.1; Monocytes # (A) 1.1 k/uL (0-1.0); Monocytes % (A) 15 %; Neutrophils # (A) 5.6 k/uL (1.3-7.7); Neutrophils % (A) 75 %; Platelet Count 193 k/uL (150-450); RBC 3.66 m/uL (4.30-5.90); RDW 12.2 % (11.5-15.5); WBC 7.5 k/uL (3.8-10.6)
[2023-06-19 12:18] LABS: African American GFR (CKD) 71 (>60 ml/min/1.73 sqM); Anion Gap 4 mmol/L; Blood Urea Nitrogen 26 mg/dL (9-20); Calcium 8.7 mg/dL (8.4-10.2); Carbon Dioxide 36 mmol/L (22-30); Chloride 93 mmol/L (98-107); Glucose 94 mg/dL (74-99); Non-African American GFR(CKD) 61 (>60 ml/min/1.73 sqM); Potassium 3.9 mmol/L (3.5-5.1); Sodium 133 mmol/L (137-145)
[2023-06-19 14:48] VITALS: BP 114/67; PULSE 69
--- NOTE | 2023-06-19 17:43 | CA ---
Transthoracic Echo Report Name: Migel Odell Age: 87 Gender: M : 1935 Exam Date: 06/19/2023 09:15 Exam Location: [place] [facility] Ht (in): 70 Wt (lb): 130 Ordering Physician: Mathew Ness MD ([id number]) Attending/Referring Phys: Oceanography Professor Shira Perez RDCS Procedure CPT: Indications: Chest Pain Cardiac Hx: Technical Quality: Fair Contrast 1: Total Dose (mL): Contrast 2: Total Dose (mL): MEASUREMENTS (Male / Female) Normal Values 2D ECHO LV Diastolic Diameter PLAX 4.6 cm 4.2 - 5.9 / 3.9 - 5.3 cm LV Systolic Diameter PLAX 3.5 cm IVS Diastolic Thickness 1.2 cm 0.6 - 1.0 / 0.6 - 0.9 cm LVPW Diastolic Thickness 0.9 cm 0.6 - 1.0 / 0.6 - 0.9 cm LV Relative Wall Thickness 0.5 RV Internal Dim ED PLAX 3.3 cm LA Systolic Diameter LX 3.7 cm 3.0 - 4.0 / 2.7 - 3.8 cm LV Diastolic Volume MOD 4C 88.5 cm??? LV Systolic Volume MOD 4C 51.8 cm??? LV Ejection Fraction MOD 4C 41.5 % LV Cardiac Index MOD 4C 1712.4 cm???/min???m??? LV Diastolic Length 4C 8.1 cm LV Systolic Length 4C 7.4 cm LV Diastolic Volume MOD 2C 60.6 cm??? LV Systolic Volume MOD 2C 31.0 cm??? LV Ejection Fraction MOD 2C 48.8 % LV Cardiac Index MOD 2C 1379.8 cm???/min???m??? LV Diastolic Length 2C 9.6 cm LV Systolic Length 2C 8.8 cm LA Volume 91.4 cm??? 18 - 58 / 22 - 52 cm??? M-MODE Aortic Root Diameter MM 3.9 cm MV E Point Septal Separation 1.1 cm AV Cusp Separation MM 1.5 cm DOPPLER AV Peak Velocity 256.7 cm/s AV Peak Gradient 26.4 mmHg AV Mean Velocity 165.7 cm/s AV Mean Gradient 13.2 mmHg AV Velocity Time Integral 44.8 cm AI Peak Velocity 257.0 cm/s AI Peak Gradient 26.4 mmHg AI Pressure Half Time 845.2 ms LVOT Peak Velocity 88.5 cm/s LVOT Peak Gradient 3.1 mmHg MV Area PHT 4.1 cm??? MV Deceleration Time 171.6 ms TR Peak Velocity 295.2 cm/s TR Peak Gradient 34.9 mmHg Right Ventricular Systolic Press 38.6 mmHg FINDINGS Left Ventricle Left ventricular ejection fraction is estimated at 40-45 %. Left ventricular cavity size normal. Mildly increased septal wall thickness. Anurysmal apex Right Ventricle Mild right ventricular dilatation. Mild pulmonary hypertension. Right Atrium Normal right atrial size. Left Atrium Severely increased left atrial volume. Mildly increased left atrial area. Mitral Valve Mitral valve thickened. Mild mitral annular calcification. Mild mitral regurgitation. Aortic Valve Aortic valve sclerosis. Mild aortic stenosis with a peak gradient of 26 mmHg and a mean gradient of 13 mmHg. Tricuspid Valve Structurally normal tricuspid valve. Mild tricuspid regurgitation. Pulmonic Valve Pulmonic valve not well visualized. Pericardium Normal pericardium. No pericardial effusion. Aorta Mild aortic dilatation at the level of the sinuses of valsalva 39 mm CONCLUSIONS Left ventricular ejection fraction 40-45% Aneurysmal apex Mildly increased left ventricular wall thickness RVSP 39 Mild mitral regurgitation Mild aortic stenosis Mild tricuspid regurgitation Previewed by: Dr. Storm Siddiqi DO (Electronically Signed) Final Date: 19 June 2023 17:41
--- NOTE | 2023-06-19 21:58 | P.DS ---
Providers Date of admission: 06/17/23 14:30 Attending physician: Sola Burden Consults: 06/17/23 14:30 Consult Physician Urgent Consulting Provider: Josh Orona Consult Reason/Comments: Atypical chest pain, elevated troponin Do you want consulting provider notified?: Yes Primary care physician: Peewee Brambila Hospital Course: Discharge diagnoses: Atypical chest pain, most likely musculoskeletal. Improved. Cardiac and pulmonary causes were ruled out. History of cardiomyopathy, with ejection fraction 40-45% Moderate mitral regurgitation Chronic atrial fibrillation on Eliquis History of COPD, and a connective tissue Hospital course: This is a pleasant 87 years old male with multiple medical problems as above Presents with atypical chest pain. Her toe just evaluated the patient, ejection fraction 40-45% Patient already on Eliquis a blood thinner, risk of thrombosis is low. Cardiac causes ruled out. Most likely musculoskeletal pain. Patient states that the pain is about 4-5/10 in severity. Cardiology and pulmonary causes ruled out. No other new complaints. [employer] recommended to this continue aspirin upon discharge and continue on Eliquis The patient was cleared for discharge by rental clerk tool and equipment Problems and management plan were discussed with the patient and he verbalized understanding and acceptance Patient was found stable and can be discharged home in guarded prognosis however he needs follow-up as an outpatient. Patient was instructed to follow up with PCP Dr. wright within one week and patient agrees Instructed to follow up with rental clerk [employer] and he told me he has appointment with him next Monday, his has contact information and that he intensive follow- up Patient was instructed to follow up with rental clerk tool and equipment Dr. Jain and he agrees Physical exam Gen: patient is a AAOx3, no distress CVS: S1-S2, RRR, no murmur Lungs: B/L CTA, no wheezing Abdomen: soft, no distention, no tenderness, positive bowel sounds Extremity: no leg edema or induration Time spent more than 35 minutes Patient Condition at Discharge: Stable Plan - Discharge Summary Discharge Rx Participant: Yes New Discharge Prescriptions: New RX: Furosemide [Lasix] 20 mg PO DAILY #30 tab RX: Cholecalciferol [Vitamin D3 (125 Mcg = 5000 Iu)] 125 mcg PO DAILY #30 tab RX: lisinopriL [Zestril] 2.5 mg PO DAILY #30 tab Continue RX: Ferrous Sulfate [Iron (65 MG Elemental)] 325 mg PO DAILY RX: predniSONE 5 mg PO DAILY RX: Montelukast Sodium [Singulair] 10 mg PO HS RX: Budesonide/Formoterol Fumarate [Symbicort 160-4.5 Mcg Inhaler] 2 puff INHALATION RT-BID RX: Apixaban [Eliquis] 2.5 mg PO BID #60 tablet RX: Ipratropium/Albuterol Sulfate [Combivent Respimat Inhaler] 1 puff INHALATION RT-QID PRN PRN Reason: Shortness Of Breath RX: Famotidine 20 mg PO DAILY RX: Dronedarone HCl [Multaq] 400 mg PO BID-W/MEALS RX: Metoprolol Succinate [Toprol XL] 25 mg PO DAILY RX: Acetaminophen [Tylenol Extra Strength] 1,000 mg PO Q6HR PRN PRN Reason: Fever And/ Or Pain RX: Cyanocobalamin (Vitamin B-12) [Vitamin B-12] 1,000 mcg PO DAILY RX: calcium polycarbophiL [Fibercon] 625 mg PO DAILY RX: Vitamin B Complex 1 cap PO DAILY RX: Amitriptyline HCl [Elavil] 10 mg PO HS PRN PRN Reason: Anxiety/Insomnia Prevagen 1 tab PO DAILY RX: Dandelion Root 1,575 mg PO DAILY RX: Multivitamins, Thera [Multivitamin (formulary)] 1 tab PO DAILY RX: Docusate [Colace] 100 mg PO TID RX: Calcium Carbonate 500 mg PO DAILY RX: Thiamine [Vitamin B-1] 100 mg PO DAILY RX: Fish Oil/Dha/Epa [Fish Oil 1,200 mg Fish Oil] 1 cap PO DAILY RX: polyethylene glycoL 3350 [Miralax] 17 gm PO DAILY Discontinued Furosemide [Lasix] 40 mg PO DAILY No Action RX: Gabapentin 300 mg PO BID Discharge Medication List RX: Ferrous Sulfate [Iron (65 MG Elemental)] 325 mg PO DAILY 06/08/17 [History] RX: Montelukast Sodium [Singulair] 10 mg PO HS 06/08/17 [History] RX: predniSONE 5 mg PO DAILY 06/08/17 [History] RX: Budesonide/Formoterol Fumarate [Symbicort 160-4.5 Mcg Inhaler] 2 puff INHALATION RT-BID 03/29/18 [History] RX: Apixaban [Eliquis] 2.5 mg PO BID #60 tablet 03/31/18 [Rx] RX: Famotidine 20 mg PO DAILY 01/26/22 [History] RX: Ipratropium/Albuterol Sulfate [Combivent Respimat Inhaler] 1 puff INHALATION RT-QID PRN 01/26/22 [History] RX: Multivitamins, Thera [Multivitamin (formulary)] 1 tab PO DAILY 01/26/22 [History] RX: Dronedarone HCl [Multaq] 400 mg PO BID-W/MEALS 02/18/22 [History] RX: Metoprolol Succinate [Toprol XL] 25 mg PO DAILY 04/13/22 [History] RX: Acetaminophen [Tylenol Extra Strength] 1,000 mg PO Q6HR PRN 01/04/23 [History] Prevagen 1 tab PO DAILY 06/17/23 [History] RX: Amitriptyline HCl [Elavil] 10 mg PO HS PRN 06/17/23 [History] RX: Calcium Carbonate 500 mg PO DAILY 06/17/23 [History] RX: Cyanocobalamin (Vitamin B-12) [Vitamin B-12] 1,000 mcg PO DAILY 06/17/23 [History] RX: Dandelion Root 1,575 mg PO DAILY 06/17/23 [History] RX: Docusate [Colace] 100 mg PO TID 06/17/23 [History] RX: Fish Oil/Dha/Epa [Fish Oil 1,200 mg Fish Oil] 1 cap PO DAILY 06/17/23 [History] RX: Gabapentin 300 mg PO BID 06/17/23 [History] RX: Thiamine [Vitamin B-1] 100 mg PO DAILY 06/17/23 [History] RX: Vitamin B Complex 1 cap PO DAILY 06/17/23 [History] RX: calcium polycarbophiL [Fibercon] 625 mg PO DAILY 06/17/23 [History] RX: polyethylene glycoL 3350 [Miralax] 17 gm PO DAILY 06/17/23 [History] RX: Cholecalciferol [Vitamin D3 (125 Mcg = 5000 Iu)] 125 mcg PO DAILY #30 tab 06/19/23 [Rx] RX: Furosemide [Lasix] 20 mg PO DAILY #30 tab 06/19/23 [Rx] RX: lisinopriL [Zestril] 2.5 mg PO DAILY #30 tab 06/19/23 [Rx] Follow up Appointment(s)/Referral(s): Josh Orona MD [STAFF PHYSICIAN] - 06/26/23 8:45 am (Appointment previously scheduled, changed to hospital follow up appointment.) Peewee Brambila MD [Primary Care Provider] - 1-2 days (Please call and schedule appointment when office reopens.) Patient Instructions/Handouts: A-fib (Atrial Fibrillation) (DC), Chest Pain (DC) Activity/Diet/Wound Care/Special Instructions: Heart healthy diet activity is restricted till you see your doctor Discharge Disposition: HOME WITH HOME HEALTH SERVICES
== END 2023-06-19 15:35 | disposition home health service (06) ==
LOC: EC 09:38 → 3SCARD 14:30
PROVIDERS: ADMIT Hospitalist; ATTEND Hospitalist
DX: R07.89 Other chest pain (principal); R77.8 Other specified abnormalities of plasma proteins; E78.5 Hyperlipidemia, unspecified; I34.0 Nonrheumatic mitral (valve) insufficiency; I10 Essential (primary) hypertension; I25.5 Ischemic cardiomyopathy; I48.20 Chronic atrial fibrillation, unspecified; J44.9 Chronic obstructive pulmonary disease, unspecified; I25.2 Old myocardial infarction; I49.3 Ventricular premature depolarization; I25.10 Atherosclerotic heart disease of native coronary artery without angina pectoris; K44.9 Diaphragmatic hernia without obstruction or gangrene; Z86.73 Personal history of transient ischemic attack (TIA), and cerebral infarction without residual deficits; H91.90 Unspecified hearing loss, unspecified ear; Z85.46 Personal history of malignant neoplasm of prostate; Z85.038 Personal history of other malignant neoplasm of large intestine; Z92.21 Personal history of antineoplastic chemotherapy; Z85.828 Personal history of other malignant neoplasm of skin; Z87.19 Personal history of other diseases of the digestive system; Z86.14 Personal history of Methicillin resistant Staphylococcus aureus infection; Z98.890 Other specified postprocedural states; Z96.642 Presence of left artificial hip joint; Z98.42 Cataract extraction status, left eye; Z98.41 Cataract extraction status, right eye; Z95.820 Peripheral vascular angioplasty status with implants and grafts; Z87.891 Personal history of nicotine dependence; Z87.09 Personal history of other diseases of the respiratory system; Z79.51 Long term (current) use of inhaled steroids; Z79.01 Long term (current) use of anticoagulants; Z79.52 Long term (current) use of systemic steroids; Z79.899 Other long term (current) drug therapy; Z88.1 Allergy status to other antibiotic agents; Z88.0 Allergy status to penicillin; Z88.2 Allergy status to sulfonamides
CPT/HCPCS: 96376; 96374; 99285; 36415; 94640 ×2; 94760 ×2; 93005; 93306; 83880; 80061; 80053; 80048 ×2; 83690; 83735; 84484; 85025 ×3; 85610; 85730; 71046; G0378 ×3; J7512 ×2; C9113 ×2

== ENCOUNTER → 2023-08-07 | Outpatient (CLI) | payer MEDICARE ==
[2023-08-07 12:08] VITALS: BP 128/80; PULSE 77; RESP 15; TEMP 98.2
--- NOTE | 2023-08-07 14:52 | P.PAINPG ---
PQRS Measure Charge Sheet Comment: HISTORY OF PRESENT ILLNESS: 87 yr old male presents today w severe and chronic neck pain secondary to DDD, stenosis, spondylosis and facet arthropathy without myelopathy for evaluation. Pt states pain level is at 6 /10 in intensity, constant, localized in the mid to lower cervical spine, sharp in character w shooting pain towards the BL shoulders and BUEs. Pain is provoked by palpation. Pain is slightly alleviated by medications, use of a cane for ambulation, repositioning and rest. Patient is unable to participate in PT due to severe COPD. Oswestry axial pain score of 24. Interventional procedures include DENIES Medications include Tyl, Neurontin REVIEW OF ORGAN SYSTEMS: CONSTITUTIONAL: No fevers or chills. No recent weight loss. NEUROLOGICAL: + numbness and tingling along the distal extremities. No seizure disorders or headaches. MUSCULOSKELETAL: + pain PSYCHIATRIC: Denies current depression or suicidal thoughts. Physical Examinations : Constitutional : Cooperative , not in acute distress . Neurologic : Cranial nerve II to XII intact. No focal neurological deficits. Psychiatric : alert & oriented x 3. Matching mood & appropriate affect. Judgment & insight intact. Musculoskeletal : Cervical Spine Motor strength in the deltoid and biceps: Normal right side. Normal Left side Motor strength biceps and the wrist extensors: Normal right side . Normal left side Motor strength in the triceps muscle: Normal right side. Normal left side Deep tendon reflexes: Normal at the biceps. Normal at Brachioradialis. Normal at triceps Vertebral body tenderness to deep palpation over C6 Cervical facet loading test: positive bilaterally Spurling test: positive bilaterally Neck distraction test: positive bilaterally Angel sign: positive bilaterally Lumbar spine Motor strength lower extremities ,thigh and legs 5/5 Right side , 5/5 Left side Deep tendon reflexes : Normal Knee Jerk. Normal Ankle Jerk Vertebral body tenderness over Lumbar facet Loading Test: positive Right / positive Left Range of motion of the lumbar spine Flexion 30 degrees, extension 10 degrees Straight Leg Raise test: Left/ Right positive at degree Noreen test: positive right / positive left. Severe tenderness over the Sacroiliac joint on the Right / Left sides Gaenslen test: positive bilaterally Seated flexion test: positive bilaterally. Sacral spine : Severe tenderness over the Sacroiliac joint: right side / left side Range of motion: Flexion of the lumbar spine <60 degrees Range of motion: Extension of the lumbar spine <20 degrees Gaenslen's Test positive El's Test positive Noreen test: positive right side / left side Thigh Thrust Test Sacral Thrust Test Imaging: MRI without contrast of the cervical spine from 12/09/22 reviewed Assessment/ Plan : Cervical DDD, cervical spondylosis, cervical stenosis Recommendation of LIANA C6-C7 #1. Patient may need a series of injections, up to 3 within a six-month timeframe, for optimal pain relief. Risks, benefits of procedure discussed and patient verbalized understanding. Admits to anti- coagulant use or medical history of diabetes. Protocol for discontinuation/ continuation of medications jose m procedure discussed. All questions answered. I have spent greater than 30 minutes on patient care today. Dr Sullivan was available by phone for the evaluation of this patient. The time was used to review the medical records including relevant urine studies and Prescription history (MAPs), review of the available imaging, evaluation and examination of the patient, coordination of care with the medical staff and if applicable referring physicians, as well as creation of the medical record PQRS Narrative: Smoking Status Former smoker Hx Alcohol Use (MH) No Home Medications: Ambulatory Orders Ferrous Sulfate [Iron (65 MG Elemental)] 325 mg PO DAILY 06/08/17 Montelukast Sodium [Singulair] 10 mg PO HS 06/08/17 predniSONE 5 mg PO DAILY 06/08/17 Budesonide/Formoterol Fumarate [Symbicort 160-4.5 Mcg Inhaler] 2 puff INHALATION RT-BID 03/29/18 Apixaban [Eliquis] 2.5 mg PO BID #60 tablet 03/31/18 Famotidine 20 mg PO DAILY 01/26/22 Ipratropium/Albuterol Sulfate [Combivent Respimat Inhaler] 1 puff INHALATION RT- QID PRN 01/26/22 Multivitamins, Thera [Multivitamin (formulary)] 1 tab PO DAILY 01/26/22 Dronedarone HCl [Multaq] 400 mg PO BID-W/MEALS 02/18/22 Metoprolol Succinate [Toprol XL] 25 mg PO DAILY 04/13/22 Acetaminophen [Tylenol Extra Strength] 1,000 mg PO Q6HR PRN 01/04/23 Amitriptyline HCl [Elavil] 10 mg PO HS PRN 06/17/23 Calcium Carbonate 500 mg PO DAILY 06/17/23 Cyanocobalamin (Vitamin B-12) [Vitamin B-12] 1,000 mcg PO DAILY 06/17/23 Dandelion Root 1,575 mg PO DAILY 06/17/23 Docusate [Colace] 100 mg PO TID 06/17/23 Fish Oil/Dha/Epa [Fish Oil 1,200 mg Fish Oil] 1 cap PO DAILY 06/17/23 Gabapentin 300 mg PO BID 06/17/23 Prevagen 1 tab PO DAILY 06/17/23 Thiamine [Vitamin B-1] 100 mg PO DAILY 06/17/23 Vitamin B Complex 1 cap PO DAILY 06/17/23 calcium polycarbophiL [Fibercon] 625 mg PO DAILY 06/17/23 polyethylene glycoL 3350 [Miralax] 17 gm PO DAILY 06/17/23 Cholecalciferol [Vitamin D3 (125 Mcg = 5000 Iu)] 125 mcg PO DAILY #30 tab 06/19/23 Furosemide [Lasix] 20 mg PO DAILY #30 tab 06/19/23 lisinopriL [Zestril] 2.5 mg PO DAILY #30 tab 06/19/23 Controlled Substance Measures - Controlled Substance Measures Is patient prescribed a controlled substance at discharge?: No
== END ==
LOC: PNWHC3 11:09
PROVIDERS: ATTEND Specialist
DX: M50.322 Other cervical disc degeneration at C5-C6 level (principal); M47.812 Spondylosis without myelopathy or radiculopathy, cervical region; M48.02 Spinal stenosis, cervical region; Z87.891 Personal history of nicotine dependence; Z88.0 Allergy status to penicillin; Z88.2 Allergy status to sulfonamides; Z88.1 Allergy status to other antibiotic agents; Z88.8 Allergy status to other drugs, medicaments and biological substances
CPT/HCPCS: 99211

== ENCOUNTER → 2023-08-08 | Outpatient (CLI) | payer MEDICARE ==
[2023-08-08 13:29] LABS: NT-Pro-B-Type Natriuretic Pept 1650 pg/mL
[2023-08-08 20:45] LABS: Blood Urea Nitrogen 13.2 mg/dL (9.0-27.0); Calcium 9.6 mg/dL (8.7-10.3); Carbon Dioxide 27.5 mmol/L (21.6-31.8); Chloride 97 mmol/L (96-109); Chol/HDL Ratio 1.75 Ratio; Glucose 94 mg/dL (70-110); LDL Cholesterol,Calculated 46.3 mg/dL (0.0-131.0); Potassium 4.6 mmol/L (3.5-5.5); Sodium 135 mmol/L (135-145); VLDL Calculation 7.74 mg/dL (5.00-40.00)
== END | disposition home or self-care (01) ==
LOC: LABWHC1 11:41
PROVIDERS: ATTEND Internal Medicine
DX: I50.9 Heart failure, unspecified (principal); E87.8 Other disorders of electrolyte and fluid balance, not elsewhere classified; I25.5 Ischemic cardiomyopathy; N18.30 Chronic kidney disease, stage 3 unspecified; E78.5 Hyperlipidemia, unspecified; M19.90 Unspecified osteoarthritis, unspecified site
CPT/HCPCS: 36415; 80048; 80061; 83880; 85652

== ENCOUNTER 2023-08-22 06:38 | Day surgery (SDC) | payer MEDICARE ==
[2023-08-22 07:11] VITALS: TEMP 97.6
[2023-08-22] MEDS ORDERED: LACTATED RINGERS 1,000 ML IV SCH (07:15)
[2023-08-22 07:19] LABS: Glucose,Whole Blood 91 mg/dL (70-110)
[2023-08-22] MEDS ORDERED: DEXAMETHASONE SOD PHOSPHATE 10 MG/ML 1 ML VIAL ONE (07:29)
[2023-08-22] MEDS ORDERED: IOPAMIDOL M200 10 ML VIAL ONE (07:29)
--- NOTE | 2023-08-22 07:41 | P.PCN ---
Date of Procedure: 08/22/23 Description of Procedure: Pre- and Post-operative Diagnosis: Cervical radiculopathy Procedure: C6-C7 Inter-Laminar Cervical Epidural Steroid Injection under biplanar fluoroscopy Surgeon: John Tyler Anesthesia: Local: 1% Lidocaine, IV sedation : None. Complications: None. Estimated blood loss: None Specimens removed: None Fluoroscopic image: saved to electronic medical records. Indications for Procedure: The patient has been suffering from neck pain and pain radiating to the upper extremity . Inadequate pain control with pharmacologic regimen. An inter-laminar approach cervical epidural steroid injection was scheduled for the patient. Procedure and Findings: The patient was seen and examined in the holding area. The written informed consent was obtained after explaining the risks, benefits, alternatives of the procedure to the patient. The patient was brought to the procedure room and was placed in the prone position on the operating table. A pillow was placed under the upper chest. Standard anesthesia monitoring was done through out the procedure. Timeout was completed. The skin preparation was done with ChloraPrep 2 and draping was done in usual sterile fashion. Sterile technique was observed throughout the procedure. Under fluoroscopic guidance, the C6-C7 inter-laminar space was identified. 3 ml of 1% Lidocaine was injected with a 25 gauge needle to achieve adequate local anesthesia of the skin and subcutaneous tissue. A 20 gauge, 3.5 inch Tuohy type epidural needle was placed and gradually advanced up to the epidural space using loss of resistance technique and fluoroscopic guidance. Lateral, oblique fluoroscopic views confirm the needle position. No paresthesia was noted. A negative aspiration was confirmed and then 1 ml of Isovue-200 was injected. A good dye spread was seen in the epidural space and it was negative for any intrathecal, intraneural or intravascular spread. A total of 5 ml solution containing 10 mg Dexamethasone, and 4 ml preservative-free Normal Saline was injected slowly with intermittent aspiration. The needle was removed intact, area was cleaned and bandage was applied. Disposition : The patient tolerated the procedure very well. The patient was transferred to the recovery room and remained stable until discharged home. The patient was given detailed discharge instructions for bleeding, infection, increased pain at the injection site, and was advised to seek immediate medical attention should significant side effects develop. The patient will be followed up with our Pain Clinic within 4 weeks for follow-up visit.
[2023-08-22 07:55] VITALS: RESP 16
[2023-08-22 08:07] VITALS: BP 121/80; PULSE 65
--- NOTE | 2023-08-22 08:17 | FL ---
Fluoroscopy History: CERV EPI [facility] IN [facility]. FL TIME 7.3 SECS DAP [id number]
== END 2023-08-22 08:05 | disposition home or self-care (01) ==
LOC: ORPAIN 06:38
DX: M54.12 Radiculopathy, cervical region (principal); J44.9 Chronic obstructive pulmonary disease, unspecified; I10 Essential (primary) hypertension; I48.91 Unspecified atrial fibrillation; I42.9 Cardiomyopathy, unspecified; Z86.73 Personal history of transient ischemic attack (TIA), and cerebral infarction without residual deficits; Z85.46 Personal history of malignant neoplasm of prostate; Z88.1 Allergy status to other antibiotic agents; Z88.0 Allergy status to penicillin; Z88.2 Allergy status to sulfonamides; Z79.01 Long term (current) use of anticoagulants; Z79.899 Other long term (current) drug therapy; Z79.51 Long term (current) use of inhaled steroids; Z79.02 Long term (current) use of antithrombotics/antiplatelets
CPT/HCPCS: 62321; J1100; Q9966

== ENCOUNTER → 2023-09-18 | Outpatient (CLI) | payer MEDICARE ==
--- NOTE | 2023-09-18 11:07 | P.PN ---
Subjective Progress Note Date: 09/18/23 87 yr old male presents today w severe and chronic neck pain secondary to cervical DDD, cervical stenosis, cervical spondylosis and facet arthropathy without myelopathy for evaluation. Pain is slightly alleviated by medications, use of a cane for ambulation, repositioning and rest. Patient is unable to participate in PT due to severe COPD. Oswestry axial pain score of 24. Patient reported that most of his problem in his hand (numbness and tingling sensation ,that radiates from the wrist to the fingers ) Recently we have done cervical epidural steroid injection patient reported that he had minimal benefit from the injections Interventional procedures include DENIES Medications include Tyl, Neurontin REVIEW OF ORGAN SYSTEMS: CONSTITUTIONAL: No fevers or chills. No recent weight loss. NEUROLOGICAL: + numbness and tingling along the distal extremities. No seizure disorders or headaches. MUSCULOSKELETAL: + pain PSYCHIATRIC: Denies current depression or suicidal thoughts. Physical Examinations : Constitutional : Cooperative , not in acute distress . Neurologic : Cranial nerve II to XII intact. No focal neurological deficits. Psychiatric : alert & oriented x 3. Matching mood & appropriate affect. Judgment & insight intact. Musculoskeletal : Cervical Spine Motor strength in the deltoid and biceps: Normal right side. Normal Left side Motor strength biceps and the wrist extensors: Normal right side . Normal left side Motor strength in the triceps muscle: Normal right side. Normal left side Deep tendon reflexes: Normal at the biceps. Normal at Brachioradialis. Normal at triceps Vertebral body tenderness to deep palpation over C6 Cervical facet loading test: positive bilaterally Spurling test: positive bilaterally Neck distraction test: positive bilat erally Angel sign: positive bilaterally Lumbar spine Motor strength lower extremities ,thigh and legs 5/5 Right side , 5/5 Left side Deep tendon reflexes : Normal Knee Jerk. Normal Ankle Jerk Vertebral body tenderness over Lumbar facet Loading Test: positive Right / positive Left Range of motion of the lumbar spine Flexion 30 degrees, extension 10 degrees Straight Leg Raise test: Left/ Right positive at degree Noreen test: positive right / positive left. Severe tenderness over the Sacroiliac joint on the Right / Left sides Gaenslen test: positive bilaterally Seated flexion test: positive bilaterally. Imaging: MRI without contrast of the cervical spine from 12/09/22 reviewed Assessment/ Plan : Cervical DDD, cervical spondylosis, cervical stenosis Patient had minimal benefit from cervical epidural steroid injection Patient reported that his main problem currently is numbness and tingling in his fingers, he had minimal neck pain, and currently he reported that he had occasional radicular symptoms, patient symptoms mostly secondary to carpal tunnel syndrome patient will be referred to Dr. Hernández for evaluation, and he will follow up in the pain clinic when necessary All questions answered. PQRS Narrative: Smoking Status Former smoker Hx Alcohol Use (MH) No Home Medications: Ambulatory Orders Ferrous Sulfate [Iron (65 MG Elemental)] 325 mg PO DAILY 06/08/17 Montelukast Sodium [Singulair] 10 mg PO HS 06/08/17 predniSONE 5 mg PO DAILY 06/08/17 Budesonide/Formoterol Fumarate [Symbicort 160-4.5 Mcg Inhaler] 2 puff INHALATION RT-BID 03/29/18 Apixaban [Eliquis] 2.5 mg PO BID #60 tablet 03/31/18 Famotidine 20 mg PO DAILY 01/26/22 Ipratropium/Albuterol Sulfate [Combivent Respimat Inhaler] 1 puff INHALATION RT- QID PRN 01/26/22 Multivitamins, Thera [Multivitamin (formulary)] 1 tab PO DAILY 01/26/22 Dronedarone HCl [Multaq] 400 mg PO BID-W/MEALS 02/18/22 Metoprolol Succinate [Toprol XL] 25 mg PO DAILY 04/13/22 Acetaminophen [Tylenol Extra Strength] 1,000 mg PO Q6HR PRN 01/04/23 Amitriptyline HCl [Elavil] 10 mg PO HS PRN 06/17/23 Calcium Carbonate 500 mg PO DAILY 06/17/23 Cyanocobalamin (Vitamin B-12) [Vitamin B-12] 1,000 mcg PO DAILY 06/17/23 Dandelion Root 1,575 mg PO DAILY 06/17/23 Docusate [Colace] 100 mg PO TID 06/17/23 Fish Oil/Dha/Epa [Fish Oil 1,200 mg Fish Oil] 1 cap PO DAILY 06/17/23 Gabapentin 300 mg PO BID 06/17/23 Prevagen 1 tab PO DAILY 06/17/23 Thiamine [Vitamin B-1] 100 mg PO DAILY 06/17/23 Vitamin B Complex 1 cap PO DAILY 06/17/23 calcium polycarbophiL [Fibercon] 625 mg PO DAILY 06/17/23 polyethylene glycoL 3350 [Miralax] 17 gm PO DAILY 06/17/23 Cholecalciferol [Vitamin D3 (125 Mcg = 5000 Iu)] 125 mcg PO DAILY #30 tab 06/19/23 Furosemide [Lasix] 20 mg PO DAILY #30 tab 06/19/23 lisinopriL [Zestril] 2.5 mg PO DAILY #30 tab 06/19/23 Controlled Substance Measures - Controlled Substance Measures Is patient prescribed a controlled substance at discharge?: No
[2023-09-18 11:21] VITALS: BP 123/83; PULSE 62; RESP 12; TEMP 98.6
== END ==
LOC: PNWHC3 10:38
PROVIDERS: ATTEND Specialist
DX: M50.322 Other cervical disc degeneration at C5-C6 level (principal); M47.812 Spondylosis without myelopathy or radiculopathy, cervical region; M48.02 Spinal stenosis, cervical region; G89.29 Other chronic pain; J44.9 Chronic obstructive pulmonary disease, unspecified; G56.00 Carpal tunnel syndrome, unspecified upper limb; Z79.01 Long term (current) use of anticoagulants; Z87.891 Personal history of nicotine dependence; Z79.51 Long term (current) use of inhaled steroids; Z88.1 Allergy status to other antibiotic agents; Z88.8 Allergy status to other drugs, medicaments and biological substances; Z88.0 Allergy status to penicillin; Z88.2 Allergy status to sulfonamides
CPT/HCPCS: 99211

== ENCOUNTER → 2024-02-01 | Outpatient (CLI) | payer MEDICARE ==
[2024-02-01 16:14] LABS: Creatinine,Urine Random 105.1 mg/dL; Protein/Creatinine Ratio,Urine 0.076
[2024-02-01 16:20] LABS: INR 1.1 (<1.2); Partial Thromboplastin Time 24.2 sec (22.0-30.0); Prothrombin Time 11.5 sec (10.0-12.5)
[2024-02-01 19:00] LABS: Appearance,Urine Clear (Clear); Bilirubin,Urine Negative (Negative); Blood,Urine Negative (Negative); Color,Urine Yellow (Yellow); Ketones,Urine Negative (Negative); Nitrite,Urine Negative (Negative); PH, Urine 7.5; Specific Gravity,Urine 1.018 (1.001-1.030)
[2024-02-01 19:04] LABS: Bacteria,Urine None Seen (None Seen)
[2024-02-02 02:45] LABS: Basophils # (A) 0.03 X 10*3/uL (0.00-0.10); Basophils % (A) 0.4 %; Eosinophils # (A) 0.03 X 10*3/uL (0.04-0.35); Eosinophils % (A) 0.4 %; HCT 36.7 % (39.6-50.0); Lymphocytes # (A) 0.51 X 10*3/uL (0.90-5.00); Lymphocytes % (A) 6.6 %; MCH 33.6 pg (27.0-32.0); MCHC 32.7 g/dL (32.0-37.0); MCV 102.8 FL (80.0-97.0); Mean Platelet Volume 10.2 FL (9.5-12.2); Monocytes % (A) 12.9 %; NRBC Per 100 WBC 0 X 10*3/uL (0.00-0.01); Neutrophils % (A) 78.7 %; Platelet Count 206 X 10*3/uL (140-440); RBC 3.57 X 10*6/uL (4.40-5.60); WBC 7.75 X 10*3/uL (4.50-10.00)
[2024-02-02 03:09] LABS: % Iron Saturation 28.62 (15.00-50.00); ALT 20 U/L (10-49); AST 29 U/L (14-35); Albumin/Globulin Ratio 1.67 Ratio (1.60-3.17); Alkaline Phosphatase 50 U/L (41-126); BUN/Creat Ratio 16.29 Ratio (12.00-20.00); Blood Urea Nitrogen 22.8 mg/dL (9.0-27.0); Calcium 9.4 mg/dL (8.7-10.3); Carbon Dioxide 29.1 mmol/L (21.6-31.8); Chloride 99 mmol/L (96-109); Chol/HDL Ratio 1.86 Ratio; Creatine Kinase 150 U/L (35-257); Globulin 2.4 g/dL (1.6-3.3); Glucose 100 mg/dL (70-110); Iron 83 UG/DL (65-175); LDL Cholesterol,Calculated 50.3 mg/dL (0.0-131.0); Magnesium 1.9 mg/dL (1.5-2.4); Phosphorus 3.5 mg/dL (2.4-5.1); Potassium 4.9 mmol/L (3.5-5.5); Prostate Specific Antigen 0.09 ng/mL (0.000-6.500); Rheumatoid Factor, Qnt <15 IU/mL (0-15); Sodium 138 mmol/L (135-145); Total Bilirubin 0.6 mg/dL (0.3-1.2); Total Iron Binding Capacity 290 UG/DL (228-460); Total Protein 6.4 g/dL (6.2-8.2); Uric Acid 5.9 mg/dL (3.7-8.7); VLDL Calculation 8.06 mg/dL (5.00-40.00)
[2024-02-02 04:19] LABS: Erythrocyte Sedimentation Rate 5 mm/Hr (0-20)
[2024-02-02 04:25] LABS: Albumin 3.9 g/dL (3.8-4.9); Protein, Total 6.4 g/dL (6.2-8.2)
[2024-02-02 04:47] LABS: Anti-DNA, DS unit <1.0 IU/mL; DNA Double-Stranded Negative (Negative)
[2024-02-02 13:57] LABS: Cyclic Citrull Pep IgG Unit <1.5 U/mL (<=3.9); Cyclic Citrullinated Pep IgG Negative
[2024-02-02 16:12] LABS: Gamma Globulin 0.99 g/dL (0.70-1.50)
== END | disposition home or self-care (01) ==
LOC: LABWHC1 14:30
PROVIDERS: ATTEND Internal Medicine
DX: Z00.00 Encounter for general adult medical examination without abnormal findings (principal); I48.91 Unspecified atrial fibrillation; E78.5 Hyperlipidemia, unspecified; E03.9 Hypothyroidism, unspecified; D64.9 Anemia, unspecified; D89.9 Disorder involving the immune mechanism, unspecified; J44.9 Chronic obstructive pulmonary disease, unspecified; M81.0 Age-related osteoporosis without current pathological fracture; N40.0 Benign prostatic hyperplasia without lower urinary tract symptoms; M06.9 Rheumatoid arthritis, unspecified; R80.9 Proteinuria, unspecified
CPT/HCPCS: 36415; 71046; 80053; 80061; 81001; 82306; 82550; 82570; 82728; 83540; 83550; 83735; 83970; 84100; 84153; 84156; 84165; 84443; 84550; 85025; 85610; 85652; 85730; 86038; 86140; 86200; 86225; 86334; 86431

== ENCOUNTER → 2024-02-21 | Outpatient (CLI) | payer MEDICARE ==
--- NOTE | 2024-02-21 09:27 | US ---
EXAMINATION TYPE: US abdomen comp/pelvis limited DATE OF EXAM: 02/21/2024 COMPARISON: NONE CLINICAL INDICATION: Male, 88 years old with history of K40.90 UNIL INGUINAL HERNIA, W/O OBST OR GA N 18.31; pain EXAM MEASUREMENTS: Liver Length: 14.7 cm Gallbladder Wall: .3 cm CBD: .4 cm Spleen: 6.7 cm Right Kidney: 8.7 x 4.5 x 5.5 cm Left Kidney: 10.2 x 5.1 x 3.2 cm Pancreas: Obscured by bowel gas Liver: wnl Gallbladder: No stones seen CBD: wnl Spleen: Limited due to rib shadowing Right Kidney: Anechoic area upper pole 4.1 x 4.6 x 4.2 cm Left Kidney: No hydronephrosis or masses seen Upper IVC: wnl Abd Aorta: wnl Bladder: Anechoic Bilateral Jets Seen Right only IMPRESSION: 1. Right renal cyst. 2. Some limitation due to bowel gas 3. No acute ultrasound abnormality of the abdomen
--- NOTE | 2024-02-21 09:28 | US ---
EXAMINATION TYPE: US groin LT DATE OF EXAM: 02/21/2024 COMPARISON: NONE CLINICAL INDICATION: Male, 88 years old with history of K40.90 UNIL INGUINAL HERNIA, W/O OBST OR GA N 18.31; LLQ pain TECHNIQUE: FINDINGS: No abnormalities seen. No suspicious inguinal abnormalities. No definite herniation. IMPRESSION: 1. Normal left inguinal region ultrasound
== END | disposition home or self-care (01) ==
LOC: RADUSWWP 07:48
PROVIDERS: ATTEND Internal Medicine
DX: N28.1 Cyst of kidney, acquired (principal); R14.3 Flatulence; K40.90 Unilateral inguinal hernia, without obstruction or gangrene, not specified as recurrent; N18.31 Chronic kidney disease, stage 3a; I70.90 Unspecified atherosclerosis
CPT/HCPCS: 76700; 76857